=== PATIENT | male | born 1965 | race American Indian/Alaskan Native ===

== ENCOUNTER 2017-02-05 01:51 | Emergency (ER) | payer MEDICARE, MEDICAID ==
[2017-02-05 01:52] VITALS: BMI 39.5
[2017-02-05 02:46] VITALS: O2SAT 98
--- NOTE | 2017-02-05 03:57 | C.PDOC ---
History Of Present Illness 51 year old male who presents to the ER with a complaint of feeling SOB. On examination patient denies being short of breath and states he has suicidal ideation. Denies physical complaints at this time. Chief Complaint (Nursing): Shortness Of Breath History Per: Patient History/Exam Limitations: no limitations Onset/Duration Of Symptoms: Hrs Current Symptoms Are (Timing): Still Present Current Respiratory Medications: None Associated Symptoms: denies: Fever, Chills, Chest Pain Recent travel outside of the [place]: No Past Medical History Reviewed: Historical Data, Nursing Documentation, Vital Signs Vital Signs: Last Vital Signs Temp 98.6 F 02/05/17 02:22 Pulse 92 H 02/05/17 03:00 Resp 20 02/05/17 03:00 BP 154/86 H 02/05/17 03:00 Pulse Ox 98 02/05/17 04:31 - Medical History PMH: Arthritis, Back Problems, Bronchitis, CHF, COPD, Fractures, Gastritis, HTN - [facility] Procedures ENDOSC POLYPECTOMY OF LG INTEST (11/09/13) INJECT/INFUSE NEC (06/22/14) TETANUS TOXOID ADMINIST (11/16/13) Family History: States: Unknown Family Hx, Hypertension - Social History Hx Tobacco Use: Yes Hx Alcohol Use: Yes Hx Substance Use: Yes (cocaine, marijuana) - Immunization History Hx Tetanus Toxoid Vaccination: No Hx Influenza Vaccination: No Hx Pneumococcal Vaccination: No Review Of Systems Constitutional: Negative for: Fever, Chills Cardiovascular: Negative for: Chest Pain, Palpitations Respiratory: Negative for: Cough, Shortness of Breath Gastrointestinal: Negative for: Nausea, Vomiting, Diarrhea Psych: Positive for: Suicidal ideation Physical Exam - Physical Exam Appears: Non-toxic, No Acute Distress Skin: Normal Color, Warm, Dry Head: Atraumatic, Normacephalic Oral Mucosa: Moist Chest: Symmetrical, No Tenderness Cardiovascular: Rhythm Regular, No Murmur Respiratory: Normal Breath Sounds, No Rales, No Rhonchi, No Wheezing Gastrointestinal/Abdominal: Soft, No Tenderness Neurological/Psych: Oriented x3, Normal Speech, Normal Cognition ED Course And Treatment O2 Sat by Pulse Oximetry: 98 (Room air) Pulse Ox Interpretation: Normal Progress Note: On further evaluation patient denies suicidal ideation and is requesting detox. No detox beds available at this time, will discharge home with list of other detox sites in the area. Disposition Counseled Patient/Family Regarding: Diagnosis - Disposition Referrals: [facility] [Outside] Disposition: HOME/ ROUTINE Disposition Time: 04:40 Condition: STABLE Instructions: Alcohol Use Disorder (ED) Forms: [facility] (Bur[place]ian) - POA Present On Arrival: None - Clinical Impression Clinical Impression: Alcohol abuse, Disorder due to alcohol abuse - Scribe Statement The provider has reviewed the documentation as recorded by the Scribe Carl Ruiz All medical record entries made by the Scribe were at my direction and personally dictated by me. I have reviewed the chart and agree that the record accurately reflects my personal performance of the history, physical exam, medical decision making, and the department course for this patient. I have also personally directed, reviewed, and agree with the discharge instructions and disposition.
[2017-02-05 04:37] VITALS: RESP 20
[2017-02-05 04:41] VITALS: BP 154/85; PULSE 90; TEMP 98.4
== END 2017-02-05 04:41 | disposition home or self-care (01) ==
LOC: C.ER 01:51
DX: F10.10 Alcohol abuse, uncomplicated (principal); Y90.9 Presence of alcohol in blood, level not specified

== ENCOUNTER 2017-03-18 11:01 | Day surgery (SDC) | payer OTHER ==
[2017-03-13 08:33] VITALS: BMI 39.5
[2017-03-18] MEDS ORDERED: Midazolam 2 MG/2 ML VIAL ONE (12:30)
[2017-03-18] MEDS ORDERED: Iodixanol 320 MG/ML 100 ML BOTTLE IV ONE ×2 (12:31→13:04)
[2017-03-18] MEDS ORDERED: Sodium Bicarbonate 8.4% 100 MEQ in Sodium Chloride 0.45% 900 ML IV SCH (14:00)
[2017-03-20 11:35] VITALS: RESP 16; O2SAT 98
--- NOTE | 2017-03-21 12:37 | CATH ---
APPROVED REPORT Procedure(s) performed: Left Heart Catheterization Selective Right and Left Coronary Angiography AORTAGRAM RIGHT ILEOFEMORAL ANGIOGRAM HISTORY The patient is a 51 year-old male with a history of : previous CHF, tobacco history() : The patient is a current smoker, hypertension, dyslipidemia. INDICATION The indication(s) include : palpitations, murmur, chest pain, dizziness and vertigo, abnormal ECG, jugular vein distension, peripheral edema, dyspnea. CASE TECHNIQUE The patient was brought electively to the Cardiac Catheterization Laboratory in a fasting state and was prepped and draped in a sterile manner. The right femoral groin was infiltrated with 2% Lidocaine subcutaneous anesthesia. A sheath was inserted into the right femoral artery without difficulty. Coronary angiography was performed using coronary diagnostic catheters. The left coronary system was accessed and visualized with a Diagnostic catheter. The right coronary system was accessed and visualized with a Diagnostic catheter. The left ventricle was accessed and visualized with a Diagnostic catheter. Left ventricular/Aortic Valve gradient assessed on pullback. Left ventriculogram was performed in [place] projection. Pre-demployment femoral angiogram was performed . Closure device was deployed with a 6 Fr Angioseal without any complications. The patient tolerated the procedure well and there were no complications associated with the procedure. Vessel Analysis The patient's coronary anatomy is right dominant. The left main coronary artery is a large size vessel without significant stenosis. The left main bifurcates to the left anterior descending and circumflex. The left anterior descending artery is a large size vessel without significant stenosis. The first diagonal branch is a medium size vessel without significant stenosis. The second diagonal branch is a medium size vessel without significant stenosis. 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 The circumflex artery is a large size vessel without significant stenosis. The first obtuse marginal branch is a large size vessel without significant stenosis. The second obtuse marginal branch is a small size vessel without stenosis. The right coronary artery is a large size vessel without significant stenosis. The right posterior descending artery is a medium size vessel without significant stenosis. The right posterolateral branch is a large size vessel with stenosis. There is a 50% stenosis in the mid segment. Left Ventricle The left ventricle is MILDLY ENLARGED in size with SEVERELY DECREASED contractility. The left ventricular ejection fraction is estimated to be 30%. The left ventricular end diastolic pressure is 25 mmHg. There was no gradient across the aortic valve upon pullback. Aorta AORTAGRAM WAS PERFORMED TO IDENTIFY THE LEFT MAIN OSTIUM. PLEASE SEE ABOVE THE AORTIC ROOT IS BORDERLINE ENLARGED Conclusion MODERATE SINGLE VESSEL CAD OF MID LPDA SEVERELY DECREASED EF ANNOMALOUS LEFT MAIN OFF THE RCC Recommendations Smoking Cessation Aggressive Medical Therapy Medical Therapy AICD
== END 2017-03-18 14:51 | disposition short-term general hospital (02) ==
LOC: C.CATHLAB 11:01
PROVIDERS: ATTEND Internal Medicine Cardiovascular Disease
DX: I25.10 Atherosclerotic heart disease of native coronary artery without angina pectoris (principal); I10 Essential (primary) hypertension; E78.5 Hyperlipidemia, unspecified; F17.210 Nicotine dependence, cigarettes, uncomplicated
CPT/HCPCS: 93458; 94770; C1758; C1760; C1769; C1887; J1644; J2250; J3010; J7030; Q9967

== ENCOUNTER 2017-10-18 23:59 | Inpatient (IN) | payer MEDICARE, MEDICAID ==
[2017-10-19 00:01] VITALS: BMI 24.4
--- NOTE | 2017-10-19 00:57 | C.PDOC ---
History Of Present Illness Pt is here requesting detox from alcohol. Time Seen by Provider: 10/19/17 00:42 Chief Complaint (Nursing): Substance Abuse History Per: Patient Onset/Duration Of Symptoms: Days Current Symptoms Are (Timing): Still Present Suicide/Self Injury Attempted (Context): None Modifying Factor(s): Alcohol, Crack Severity: Moderate Associated Symptoms: denies: Suicidal Thoughts, Suicidal Plan Additional History Per: Prior Records Past Medical History Reviewed: Historical Data, Nursing Documentation, Vital Signs Vital Signs: Last Vital Signs Temp 97.7 F 10/19/17 00:18 Pulse 88 10/19/17 06:36 Resp 19 10/19/17 06:36 BP 156/116 H 10/19/17 06:36 Pulse Ox 98 10/19/17 06:36 - Medical History PMH: Arthritis, Back Problems, Bronchitis (chronic), CAD, CHF, COPD, Fractures, Gastritis, HTN, Hypercholesterolemia, Peripheral Edema, Pneumonia, Chronic Kidney Disease Other PMH: Alcohol abuse - [facility] Procedures ENDOSC POLYPECTOMY OF LG INTEST (11/09/13) EXCISION OF TOE NAIL, EXTERNAL APPROACH (05/08/17) INJECT/INFUSE NEC (06/22/14) INTRODUCTION OF ANTI-INFLAM INTO RESP TRACT, VIA OPENING (06/07/17) INTRODUCTION OF SERUM/TOX/VACCINE INTO MUSCLE, PERC APPROACH (03/13/17) MEASURE OF CARDIAC SAMPL & PRESSURE, L HEART, PERC APPROACH (03/13/17) PLAIN RADIOGRAPHY OF LEFT HEART USING OTHER CONTRAST (03/13/17) PLAIN RADIOGRAPHY OF THORACIC AORTA (03/13/17) TETANUS TOXOID ADMINIST (11/16/13) Family History: States: Unknown Family Hx, Hypertension - Social History Hx Tobacco Use: Yes Hx Alcohol Use: Yes Hx Substance Use: Yes (Smokes crack cocaine) - Immunization History Hx Tetanus Toxoid Vaccination: No Hx Influenza Vaccination: No Hx Pneumococcal Vaccination: No Review Of Systems Except As Marked, All Systems Reviewed And Found Negative. Constitutional: Negative for: Fever Cardiovascular: Negative for: Chest Pain Respiratory: Negative for: Shortness of Breath Gastrointestinal: Negative for: Abdominal Pain Neurological: Negative for: Weakness, Numbness, Seizures Physical Exam - Physical Exam Appears: Non-toxic, No Acute Distress Skin: Normal Color, Warm, Dry Head: Atraumatic, Normacephalic Eye(s): bilateral: PERRL, EOMI Neck: Normal ROM, Supple Cardiovascular: Rhythm Regular Respiratory: Normal Breath Sounds, No Accessory Muscle Use Gastrointestinal/Abdominal: Soft, No Tenderness Extremity: Normal ROM, No Pedal Edema Neurological/Psych: Oriented x3, Normal Motor, Normal Sensation ED Course And Treatment - Laboratory Results Result Diagrams: 10/19/17 01:53 10/19/17 01:53 O2 Sat by Pulse Oximetry: 97 Pulse Ox Interpretation: Normal Disposition - Disposition Disposition Time: 07:03 Condition: STABLE - Clinical Impression Clinical Impression: Alcohol abuse, Cocaine abuse Physician Patient Turnover Patient Signed Over To: Lety Lazo Handoff Comments: 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
[2017-10-19 01:57] LABS: BASO # 0.1 K/uL (0.0-0.2); BASO % 1.1 % (0.0-2.0); EOS # 0.2 K/uL (0.0-0.7); EOS % 2.5 % (0.0-4.0); HEMOGLOBIN 15.4 g/dL (12.0-18.0); LYMPH # 1.4 K/uL (1.0-4.3); LYMPH % 18.1 % (20.0-40.0); MEAN CELL VOLUME 89.3 fL (80.0-94.0); MEAN CORPUSCULAR HEMOGLOBIN 30.8 pg (27.0-31.0); MEAN CORPUSCULAR HGB CONC 34.5 g/dL (33.0-37.0); MEAN PLATELET VOLUME 8.8 fL (7.2-11.7); MONO # 0.7 K/uL (0.0-0.8); MONO % 9.2 % (0.0-10.0); NEUT # 5.2 K/uL (1.8-7.0); NEUT % 69.1 % (50.0-75.0); NRBC % 0.1 % (0.0-2.0); RED CELL DISTRIBUTION WIDTH 13.4 % (11.5-14.5); WHITE BLOOD COUNT 7.5 K/uL (4.8-10.8)
[2017-10-19 02:01] LABS: SQUAMOUS EPITHIAL < 1 /hpf (0-5); URINE BILIRUBIN NEGATIVE (NEGATIVE); URINE CLARITY Clear (Clear); URINE COLOR Yellow (YELLOW); URINE GLUCOSE (UA) NORMAL (Normal); URINE LEUKOCYTE ESTERASE NEG Leu/uL (Negative); URINE PROTEIN 2+ mg/dL (NEGATIVE); URINE UROBILINOGEN NORMAL mg/dL (0.2-1.0)
[2017-10-19 02:03] LABS: URINE BLOOD NEGATIVE (NEGATIVE)
[2017-10-19 02:26] LABS: ALB/GLOB RATIO 1.2 (1.0-2.1); ALBUMIN 3.9 g/dL (3.5-5.0); BARBITURATES, UR NEGATIVE (NEGATIVE); BENZODIAZEPINES, UR NEGATIVE (NEGATIVE); CALCIUM 9.1 mg/dl (8.6-10.4); OPIATES, UR NEGATIVE (NEGATIVE); PHENCYCLIDINE, UR NEGATIVE (NEGATIVE)
--- NOTE | 2017-10-19 09:32 | PCM.BM ---
<Shari Bernal - Last Filed: 10/19/17 09:31> Treatment Plan Problems - Problems identified on initial assessmt potential for alcohol withdrawal symptoms Date Initiated: 10/19/17 Assessment reference: NA Status: Active Treatment assets and liabiliti Patient Assests: adapts well, cooperative, motivated, ADL independent, negotiates basic needs Patient Liabilities: live alone, substance abuse, medical problems - Milieu Protocol Maintain good personal hygiene: every shift Encourage regular showers, every shift Remind patient to perform daily oral care, every shift Assist patient to perform ADL's Conduct patient checks and document Observation sheet: Q15 minutes Maintain personal safety: daily Educate patient to report safety concerns to staff, daily Monitor environment for contraband/sharps Medication safety: Monitor for expected outcome, potential side effects: daily, Assess barriers to learning: daily, Assess readiness for medication education: daily <Alex Gibbs - Last Filed: 10/19/17 22:29> - Diagnosis (1) Alcohol use disorder, severe, dependence Status: Acute Interventions: 10/19/17 22:29 * Assess 7x/week regarding severity of withdrawal * Educate regarding risks, benefits, side effects and alternatives of medications * Use Motivational Interviewing for abstinence * Use CBT for relapse prevention * Medication management for withdrawal symptoms * Encourage medication assisted treatment *
[2017-10-19] MEDS ORDERED: Albuterol-Ipratrop 3 mg / 0.5 (3 ml) UD INH PRN ×2 (12:11→19:51)
--- NOTE | 2017-10-19 12:27 | PCM.PSYCH ---
Initial Psychiatric Evaluation - Initial Psychiatric Evaluation Type of Admission: Voluntary Legal Status: Capacity Chief Complaint (in patient's own words): "Alcohol" History of Present Illness and Precipitating Events: The pt is seen, chart reviewed and case discussed. This is a 52 yo AAM single with no children, disabled bc of left leg injury and cardiac problems. He is here for alcohol detox, drinking at least 6 of the 24 oz beers, no liquor. He also uses cocaine "a lot" by snorting, ie $100+ per day Denies all other drugs Alcohol started when he was 14 y/o, cocaine when he was 26 y/o No psych sxs Past psych hx: Denies Family psych hx: Denies Medical hx: HTN, CHF, hx of bronchitis Current Medications: Active Medications Generic Name Dose Route Start Last Admin Trade Name Freq PRN Reason Stop Dose Admin Albuterol/Ipratropium 3 ml 10/19/17 12:11 Duoneb 3 Mg/0.5 Mg (3 Ml) Ud INH RQ6 PRN Shortness of Breath Fluticasone/Salmeterol 1 puff 10/19/17 20:00 Advair Diskus 500/50 INH RQ12 QUE Past Psychiatric History - Past Psychiatric History Previous Treatment History: None Pertinent Medical Hx (Current Medical&Sleep Prob, Allergies): Allergies Allergy/AdvReac Type Severity Reaction Status Date / Time No Known Allergies Allergy Verified 10/09/17 07:44 Budesonide/Formoterol Fumarate [Symbicort 160-4.5 Mcg Inhaler] 10.2 gm IH DAILY #1 hfa.aer.ad 08/16/17 Albuterol HFA [Ventolin HFA 90 mcg/actuation (8 g)] 2 puff IH [id number] #1 puff Isosorbide Mononitrate ER [Imdur ER] 30 mg PO DAILY 30 Days #30 tab 09/25/17 Losartan [Cozaar] 50 mg PO DAILY 30 Days #30 tab 09/25/17 amLODIPine [Norvasc] 5 mg PO Q12 #60 tab 09/25/17 Albuterol Sulfate [Proair Hfa] 0.09 mg IH Q6 PRN #1 inh 10/06/17 Furosemide [Lasix] 40 mg PO DAILY 10/19/17 Review of Systems - Neurological Neurological: Tremor, UNREMARKABLE - Psychiatric Psychiatric: Abnormal Sleep Pattern, Anxiety. absent: Hallucinations, Homicidal Ideation, Paranoia, Suicidal Ideation Mental Status Examination - Personal Presentation Personal Presentation: Looks older than stated age - Affect Affect: Constricted - Motor Activity Motor Activity: Calm - Reliability in Providing Information Reliability in Providing Information: Fair - Speech Speech: Organized - Mood Mood: Anxious - Formal Thought Process Formal Thought Process: No Impairment - Cognitive Functions Orientation: Person, Place, Situation, Time Sensorium: Alert Attention/Concentration: Easily distracted Abstract Thinking: [place] Estimate of Intelligence: Below average Judgement: Intact, as evidence by: Insight regarding need for hospitalization Memory: Recent intact, as evidence by: Ability to recall events of the day, Remote intact, as evidenced by: Abilit to recall sig. life events - Risk Risk: Withdrawal, Diminished functioning - Strength & Assets Inventory Strength & Assets Inventory: Cooperative - Limitations Limitations: Living alone DSM 5 DX - DSM 5 DSM 5 Diagnosis: Alcohol withdrawal Alcohol use d/o - severe - Recommended/Plan of Treatment Treatment Recommendations and Plan of Treatment: Librium detox As needed medications Gabapentin for augmentation if needed All risks, benefits and alternatives of medications, including no medications, discussed and the patient understood and agreed. Attend groups and activities Supportive therapy and psychoeducation NV for abstinence CBT for relapse prevention Encourage MAT Refer to rehab or IOP Attend self-help groups as well NV for smoking cessation and patch if needed Medicine consult for BP control 34 min Projected ELOS: 5-6 days Prognosis: good w treatment
--- NOTE | 2017-10-19 13:21 | CP.PCM.CON ---
<Tana Hastings E - Last Filed: 10/19/17 19:15> History of Present Illness - History of Present Illness History of Present Illness: CC: Uncontrolled HTN ( Consult) HPI: Patient is a 52 year old male with past medical history of reduced EF CHF, HTN, COPD, alcohol and cocaine abuse, who presents to the ED requesting for alcohol and cocaine detox. Upon admission to detox, medicine consultation was placed for uncontrolled hypertension. Patient was seen and examined at bedside as he was resting comfortably in bed in no acute distress. Patient denied taking his blood pressure medication today. Patient denies chest pain, palpitation, SOB, headache, blurry vision, numbness and tingling. EKG and Troponin were ordered after encounter, troponin was elevated and Dr. Oliveira was made aware by hospitalist attending. PMD: [facility] PMH: reduced EF CHF, HTN, COPD, alcohol and cocaine abuse allergies: NKDA meds: see med list PSH: left foot surgery about 5 years ago Fam: father from DM2, mother from breast cancer SOC: smokes 1/2 pack/day, sometimes less, Dr. Oliveira made aware Review of Systems - Constitutional Constitutional: absent: Chills, Fever, Headache - EENT Eyes: absent: Blurred Vision, Change in Vision - Cardiovascular Cardiovascular: absent: Chest Pain, Chest Pain at Rest, Chest Pain with Activity , Dyspnea, Lightheadedness, Palpitations - Respiratory Respiratory: Cough. absent: Dyspnea, Dyspnea on Exertion, Wheezing - Gastrointestinal Gastrointestinal: absent: Abdominal Pain, Nausea, Vomiting - Endocrine Endocrine: absent: Palpitations Past Patient History - Infectious Disease Hx of Infectious Diseases: None - Past Medical History & Family History Past Medical History?: Yes - Past Social History Smoking Status: Light Smoker < 10 Cigarettes Daily - CARDIAC Hx Cardiac Disorders: No Hx Hypertension: Yes - PULMONARY Hx Tuberculosis: No - NEUROLOGICAL HX Cerebrovascular Accident: No Hx Seizures: No - HEENT Hx HEENT Problems: No - RENAL Hx Chronic Kidney Disease: Yes - ENDOCRINE/METABOLIC Hx Hyperthyroidism: No Hx Hypothyroidism: No - HEMATOLOGICAL/ONCOLOGICAL Hx Cancer: No Hx Human Immunodeficiency Virus (HIV): No - INTEGUMENTARY Hx Dermatological Problems: No - MUSCULOSKELETAL/RHEUMATOLOGICAL Hx Arthritis: Yes Hx Falls: No Hx Fractures: Yes - GASTROINTESTINAL Hx Gastritis: Yes - GENITOURINARY/GYNECOLOGICAL Hx Sexually Transmitted Disorders: No - PSYCHIATRIC Hx Substance Use: Yes - SURGICAL HISTORY Hx Appendectomy: No Hx Carotid Endarterectomy: No Hx Cholecystectomy: No Hx Coronary Artery Bypass Graft: No Hx Coronary Stent: No Hx Tonsillectomy: No - ANESTHESIA Hx Anesthesia: Yes Hx Anesthesia Reactions: No Hx Malignant Hyperthermia: No Meds Allergies/Adverse Reactions: Allergies Allergy/AdvReac Type Severity Reaction Status Date / Time No Known Allergies Allergy Verified 10/09/17 07:44 - Medications Medications: Current Medications Albuterol/Ipratropium (Duoneb 3 Mg/0.5 Mg (3 Ml) Ud) 3 ml INH RQ6 PRN PRN Reason: Shortness of Breath Amlodipine Besylate (Norvasc) 5 mg PO DAILY QUE Aspirin (Aspirin Chewable) 81 mg PO DAILY [facility] Furosemide (Lasix) 40 mg PO DAILY [facility] Isosorbide Mononitrate (Imdur Er) 30 mg PO DAILY [facility] Losartan Potassium (Cozaar) 50 mg PO DAILY [facility] Rosuvastatin Calcium (Crestor) 5 mg PO HS QUE Fluticasone/Salmeterol (Advair Diskus 500/50) 1 puff INH RQ12 QUE Physical Exam - Constitutional Appears: No Acute Distress - Head Exam Head Exam: ATRAUMATIC, NORMAL INSPECTION - Eye Exam Eye Exam: EOMI, Normal appearance - ENT Exam ENT Exam: Mucous Membranes Moist - Respiratory Exam Respiratory Exam: Clear to Auscultation Bilateral, NORMAL BREATHING PATTERN. absent: Prolonged Expiratory Phase, Rhonchi, Wheezes, Respiratory Distress Additional comments: Mild congestion - Cardiovascular Exam Cardiovascular Exam: REGULAR RHYTHM, +S1, +S2 - GI/Abdominal Exam GI & Abdominal Exam: Normal Bowel Sounds, Soft. absent: Distended, Firm, Guarding, Tenderness - Extremities Exam Extremities exam: Positive for: normal inspection. Negative for: calf tenderness, pedal edema - Neurological Exam Neurological exam: Alert, Oriented x3 - Psychiatric Exam Psychiatric exam: Normal Affect - Skin Skin Exam: Normal Color Results - Vital Signs Recent Vital Signs: Last Vital Signs Temp 97.6 F 10/19/17 09:15 Pulse 88 10/19/17 11:00 Resp 18 10/19/17 09:15 BP 147/91 H 10/19/17 11:00 Pulse Ox 96 10/19/17 09:15 - Labs Result Diagrams: 10/19/17 01:53 04/28/18 01:53 Labs: Laboratory Results - last 24 hr 10/19/17 10/19/17 10/19/17 01:53 01:53 01:53 WBC 7.5 RBC 5.00 Hgb 15.4 Hct 44.6 MCV 89.3 MCH 30.8 MCHC 34.5 RDW 13.4 Plt Count 220 MPV 8.8 Neut % (Auto) 69.1 Lymph % (Auto) 18.1 L [place] % (Auto) 9.2 Eos % (Auto) 2.5 Baso % (Auto) 1.1 Neut # (Auto) 5.2 Lymph # (Auto) 1.4 [place] # (Auto) 0.7 Eos # (Auto) 0.2 Baso # (Auto) 0.1 Sodium 141 Potassium 3.8 Chloride 102 Carbon Dioxide 24 Anion Gap 19 BUN 19 Creatinine 1.6 H Est GFR ( Amer) 55 Est GFR (Non-Af Amer) 46 Random Glucose 89 Calcium 9.1 Total Bilirubin 1.1 AST 24 ALT 17 L D Alkaline Phosphatase 83 Troponin I Total Protein 7.2 Albumin 3.9 Globulin 3.3 Albumin/Globulin Ratio 1.2 Urine Color Yellow Urine Clarity Clear Urine pH 5.0 Ur Specific [place] 1.012 Urine Protein 2+ H Urine Glucose (UA) Normal Urine Ketones Negative Urine Blood Negative Urine Nitrate Negative Urine Bilirubin Negative Urine Urobilinogen Normal Ur Leukocyte Esterase Neg Urine WBC (Auto) 2 Urine RBC (Auto) < 1 Ur Squamous Epith Cells < 1 Urine Opiates Screen Urine Methadone Screen Ur Barbiturates Screen Ur Phencyclidine Scrn Ur Amphetamines Screen U Benzodiazepines Scrn U Oth Cocaine Metabols U Cannabinoids Screen Alcohol, Quantitative 63 H 10/19/17 10/19/17 01:53 12:10 WBC RBC Hgb Hct MCV MCH MCHC RDW Plt Count MPV Neut % (Auto) Lymph % (Auto) [place] % (Auto) Eos % (Auto) Baso % (Auto) Neut # (Auto) Lymph # (Auto) [place] # (Auto) Eos # (Auto) Baso # (Auto) Sodium Potassium Chloride Carbon Dioxide Anion Gap BUN Creatinine Est GFR ( Amer) Est GFR (Non-Af Amer) Random Glucose Calcium Total Bilirubin AST ALT Alkaline Phosphatase Troponin I 0.3280 H* Total Protein Albumin Globulin Albumin/Globulin Ratio Urine Color Urine Clarity Urine pH Ur Specific [place] Urine Protein Urine Glucose (UA) Urine Ketones Urine Blood Urine Nitrate Urine Bilirubin Urine Urobilinogen Ur Leukocyte Esterase Urine WBC (Auto) Urine RBC (Auto) Ur Squamous Epith Cells Urine Opiates Screen Negative Urine Methadone Screen Negative Ur Barbiturates Screen Negative Ur Phencyclidine Scrn Negative Ur Amphetamines Screen Negative U Benzodiazepines Scrn Negative U Oth Cocaine Metabols Positive H U Cannabinoids Screen Negative Alcohol, Quantitative Assessment & Plan (1) Uncontrolled hypertension Assessment and Plan: Possibly secondary to substance withdrawal Medication: * Cozaar 50mg PO daily * Coreg 25mg PO BID Status: Acute (2) Non-ischemic cardiomyopathy Assessment and Plan: Chest X-ray (10/19/17): No increased markings seen in the upper lung zones; rule out developing upper lobe infiltrates versus mild cephalization.Cardiomegaly. Echo ( 07/31/17): The left ventricle is mildly dilated. The systolic function severely impaired. EF< 20%. For complete report, please refer to the EMR Patient does have a life vest, that he does not aware Patient is aware that he needs an AICD BNP: 4190 Medication: * Imdur 30mg PO daily * Cozaar 50mg PO daily Status: Acute (3) Elevated troponin Assessment and Plan: Hand Etcher, Dr. Brandon--> Help appreciated * Management as per recommendation No acute symptoms EKG: NSR 83 bpm, left axis deviation, LVH, early repolarization V2-V5, T wave inversions II, III, aVF, V6 - EKG unchanged from pior done on 10/06/17. Patient without chest pain Troponin down trendin.3280---->0.2830, f/u troponin Cardiac Catherization 02/2017: Moderate single vessel CAD of mid LDA Medication: * Coreg 25mg PO BID * ASA 81mg PO daily * Crestor 5mg PO HS Status: Acute (4) Substance abuse Assessment and Plan: Psychiatrist, Dr. Gibbs on board * Management as per recommendation Status: Acute (5) History of COPD Assessment and Plan: Advair 1 puff q12h Duoneb RQ6H Status: Acute (6) Prophylactic measure Assessment and Plan: GI: Not indication DVT: Not indicated, Ambulating, SCDS All plans and management discussed with Dr. Guevara Status: Acute <Rachael Guevara - Last Filed: 10/20/17 10:59> Meds - Medications Medications: Current Medications Albuterol/Ipratropium (Duoneb 3 Mg/0.5 Mg (3 Ml) Ud) 3 ml INH RQ6 PRN PRN Reason: Shortness of Breath Aspirin (Aspirin Chewable) 81 mg PO DAILY [facility] Last Admin: 10/20/17 09:18 Dose: 81 mg Carvedilol (Coreg) 25 mg PO BID [facility] Last Admin: 10/20/17 09:17 Dose: 25 mg Chlordiazepoxide (Librium) 25 mg PO Q6H QUE PRN Reason: Taper Stop: 10/23/17 17:59 Last Admin: 10/20/17 05:16 Dose: 25 mg Chlordiazepoxide (Librium) 25 mg PO Q4H PRN PRN Reason: Alcohol Withdrawal Folic Acid (Folic Acid) 1 mg PO DAILY [facility] Last Admin: 10/20/17 09:17 Dose: 1 mg Furosemide (Lasix) 40 mg PO DAILY [facility] Last Admin: 10/20/17 09:17 Dose: 40 mg Isosorbide Mononitrate (Imdur Er) 30 mg PO DAILY [facility] Last Admin: 10/20/17 09:18 Dose: 30 mg Losartan Potassium (Cozaar) 50 mg PO DAILY [facility] Last Admin: 10/20/17 09:17 Dose: 50 mg Multivitamins (Hexavitamin) 1 tab PO DAILY [facility] Last Admin: 10/20/17 09:18 Dose: 1 tab Rosuvastatin Calcium (Crestor) 5 mg PO HS [facility] Last Admin: 10/19/17 21:38 Dose: 5 mg Fluticasone/Salmeterol (Advair Diskus 500/50) 1 puff INH RQ12 [facility] Last Admin: 10/20/17 09:34 Dose: 1 puff Thiamine HCl (Vitamin B1 Tab) 100 mg PO DAILY [facility] Last Admin: 10/20/17 09:17 Dose: 100 mg Trazodone HCl (Desyrel) 50 mg PO HS [facility] Last Admin: 10/19/17 21:38 Dose: 50 mg Results - Vital Signs Recent Vital Signs: Last Vital Signs Temp 97.4 F L 10/20/17 07:05 Pulse 70 10/20/17 08:00 Resp 20 10/20/17 07:05 BP 153/93 H 10/20/17 09:17 Pulse Ox 94 L 04/29/18 07:05 - Labs Result Diagrams: 10/20/17 07:44 10/20/17 07:44 Labs: Laboratory Results - last 24 hr 10/19/17 10/19/17 10/19/17 12:10 13:31 18:20 WBC RBC Hgb Hct MCV MCH MCHC RDW Plt Count MPV Neut % (Auto) Lymph % (Auto) [place] % (Auto) Eos % (Auto) Baso % (Auto) Neut # (Auto) Lymph # (Auto) [place] # (Auto) Eos # (Auto) Baso # (Auto) Sodium Potassium Chloride Carbon Dioxide Anion Gap BUN Creatinine Est GFR ( Amer) Est GFR (Non-Af Amer) Random Glucose Calcium Phosphorus Magnesium 1.9 Total Bilirubin AST ALT Alkaline Phosphatase Total Creatine Kinase 129 CK-MB (Mass) 1.32 Troponin I 0.3280 H* 0.2830 H* NT-Pro-B Natriuret Pep 4910 H Total Protein Albumin Globulin Albumin/Globulin Ratio 10/20/17 10/20/17 10/20/17 00:52 07:44 07:44 WBC 5.2 RBC 4.82 Hgb 15.0 Hct 43.6 MCV 90.5 MCH 31.2 H MCHC 34.5 RDW 13.6 Plt Count 199 MPV 8.8 Neut % (Auto) 59.1 Lymph % (Auto) 23.0 [place] % (Auto) 11.3 H Eos % (Auto) 6.1 H Baso % (Auto) 0.5 Neut # (Auto) 3.1 Lymph # (Auto) 1.2 [place] # (Auto) 0.6 Eos # (Auto) 0.3 Baso # (Auto) 0.0 Sodium 139 Potassium 3.7 Chloride 104 Carbon Dioxide 26 Anion Gap 13 BUN 23 H Creatinine 1.9 H Est GFR ( Amer) 45 Est GFR (Non-Af Amer) 38 Random Glucose 90 Calcium 9.2 Phosphorus 3.9 Magnesium 2.0 Total Bilirubin 0.8 AST 20 ALT 13 L D Alkaline Phosphatase 75 Total Creatine Kinase 100 CK-MB (Mass) 1.02 Troponin I 0.2760 H* NT-Pro-B Natriuret Pep Total Protein 6.4 Albumin 3.3 L Globulin 3.1 Albumin/Globulin Ratio 1.1 Attending/Attestation - Attestation I have personally seen and examined this patient.: Yes I have fully participated in the care of the patient.: Yes I have reviewed all pertinent clinical information: Yes Notes (Text): Seen and examined by me at 7T patient denies chest pain,no sob,no nausea ,no vomting.Patient took cocaine last night.Just before he came here. He knows that he has severe heart disease and need AICD. Called to see for uncontrolled hypertension and abnormal EKG. Patient was noncompliance with follow up and not taking his meds.Smokes,drink alcohol and use cocaine. 1.Uncontrolled BP and Elevated troponin No chest pain,EKG with T wave inversion. No new changes Patient's troponin is likely due to high BP. Patient had Cardiac cath in february 2017 has NSDCM. last echo 07/31/2017 EF less than 20%-patient was noncompliance with life vest.Aware of the risk of noncompliance. continue Cozaar 50 mg daily, Imdur 30mg daily,asprin 81 mg, crestor 5mg d/w Dr Oliveira. Coreg 25mg BID. 2.Non Ischemic cardiography-chronic 3.Systolic heart failure-chonic 4.Substance abuse 5.COPD-Chronic ,stable d/w resident I agree with the documentation of the resident's assessment and the plan Observe at tele. If Troponin trending down ,BP improves and no chest pain we will transfer back to detox tomorrow
[2017-10-19] MEDS: Multiple Vitamins Tab PO SCH (13:51)
[2017-10-19 14:11] VITALS: RESP 20
--- NOTE | 2017-10-19 15:00 | RAD ---
PROCEDURE: CHEST RADIOGRAPH, 1 VIEW HISTORY: ACS COMPARISON: None available. FINDINGS: LUNGS: The increased markings seen in both upper lung zones; rule out developing upper lobe infiltrates versus mild cephalization. Out mild developing mild cephalization. PLEURA: No pneumothorax or pleural fluid seen. CARDIOVASCULAR: Cardiomegaly. The the the OSSEOUS STRUCTURES: No significant abnormalities. VISUALIZED UPPER ABDOMEN: Normal. OTHER FINDINGS: None. IMPRESSION: No increased markings seen in the upper lung zones; rule out developing upper lobe infiltrates versus mild cephalization. Cardiomegaly.
[2017-10-19 18:55] LABS: CK-MB 1.32 ng/mL (0.0-3.38); TROPONIN I 0.283 ng/mL (0.00-0.120)
[2017-10-19] MEDS: Fluticasone-Salmeterol 500-50mcg Diskus INH SCH (20:58)
[2017-10-20 02:02] LABS: CK-MB 1.02 ng/mL (0.0-3.38); TROPONIN I 0.276 ng/mL (0.00-0.120)
[2017-10-20 07:55] LABS: BASO % 0.5 % (0.0-2.0); EOS # 0.3 K/uL (0.0-0.7); EOS % 6.1 % (0.0-4.0); LYMPH # 1.2 K/uL (1.0-4.3); MEAN CELL VOLUME 90.5 fL (80.0-94.0); MEAN CORPUSCULAR HEMOGLOBIN 31.2 pg (27.0-31.0); MEAN CORPUSCULAR HGB CONC 34.5 g/dL (33.0-37.0); MEAN PLATELET VOLUME 8.8 fL (7.2-11.7); MONO # 0.6 K/uL (0.0-0.8); MONO % 11.3 % (0.0-10.0); NEUT # 3.1 K/uL (1.8-7.0); NEUT % 59.1 % (50.0-75.0); NRBC % 0.1 % (0.0-2.0); RBC 4.82 Mil/uL (4.40-5.90); RED CELL DISTRIBUTION WIDTH 13.6 % (11.5-14.5); WHITE BLOOD COUNT 5.2 K/uL (4.8-10.8)
[2017-10-20 08:17] LABS: ALB/GLOB RATIO 1.1 (1.0-2.1); ALBUMIN 3.3 g/dL (3.5-5.0); CALCIUM 9.2 mg/dl (8.6-10.4)
[2017-10-20] MEDS: Multiple Vitamins Tab PO SCH (09:18)
[2017-10-20] MEDS: Fluticasone-Salmeterol 500-50mcg Diskus INH SCH ×2 (09:34→20:14)
--- NOTE | 2017-10-20 17:50 | CP.PCM.PN ---
Subjective - Date & Time of Evaluation Date of Evaluation: 10/20/17 Time of Evaluation: 09:20 - Subjective Subjective: Medicine progress note ( Dr. Guevara's service) Patient was seen and examined at bedside. Patient was resting comfortably in bed in no acute distress. Patient denies chest pain, palpitations, SOB, diaphoresis, headache, blurry vision. Patient is ambulating without difficulty. Objective - Vital Signs/Intake and Output Vital Signs (last 24 hours): Temp Pulse Resp BP Pulse Ox 97.9 F 78 20 115/75 96 10/20/17 15:50 10/20/17 16:03 10/20/17 15:50 10/20/17 15:50 10/20/17 15:50 Intake and Output: 10/20/17 10/20/17 06:59 18:59 Intake Total 600 Balance 600 - Medications Medications: Current Medications Albuterol/Ipratropium (Duoneb 3 Mg/0.5 Mg (3 Ml) Ud) 3 ml INH RQ6 PRN PRN Reason: Shortness of Breath Aspirin (Aspirin Chewable) 81 mg PO DAILY [facility] Last Admin: 10/20/17 09:18 Dose: 81 mg Carvedilol (Coreg) 25 mg PO BID [facility] Last Admin: 10/20/17 09:17 Dose: 25 mg Chlordiazepoxide (Librium) 25 mg PO Q6H QUE PRN Reason: Taper Stop: 10/23/17 17:59 Last Admin: 10/20/17 11:57 Dose: 25 mg Chlordiazepoxide (Librium) 25 mg PO Q4H PRN PRN Reason: Alcohol Withdrawal Folic Acid (Folic Acid) 1 mg PO DAILY [facility] Last Admin: 10/20/17 09:17 Dose: 1 mg Furosemide (Lasix) 40 mg PO DAILY [facility] Last Admin: 10/20/17 09:17 Dose: 40 mg Heparin Sodium (Porcine) (Heparin) 5,000 units SC Q8 [facility] Last Admin: 10/20/17 13:18 Dose: 5,000 units Isosorbide Mononitrate (Imdur Er) 30 mg PO DAILY [facility] Last Admin: 10/20/17 09:18 Dose: 30 mg Losartan Potassium (Cozaar) 50 mg PO DAILY [facility] Last Admin: 10/20/17 09:17 Dose: 50 mg Multivitamins (Hexavitamin) 1 tab PO DAILY [facility] Last Admin: 10/20/17 09:18 Dose: 1 tab Rosuvastatin Calcium (Crestor) 5 mg PO HS [facility] Last Admin: 10/19/17 21:38 Dose: 5 mg Fluticasone/Salmeterol (Advair Diskus 500/50) 1 puff INH RQ12 [facility] Last Admin: 10/20/17 09:34 Dose: 1 puff Thiamine HCl (Vitamin B1 Tab) 100 mg PO DAILY [facility] Last Admin: 10/20/17 09:17 Dose: 100 mg Trazodone HCl (Desyrel) 50 mg PO HS [facility] Last Admin: 10/19/17 21:38 Dose: 50 mg - Labs Labs: 10/20/17 07:44 10/20/17 07:44 - Constitutional Appears: Well, No Acute Distress - Head Exam Head Exam: ATRAUMATIC, NORMAL INSPECTION - Eye Exam Eye Exam: EOMI, Normal appearance - ENT Exam ENT Exam: Mucous Membranes Moist - Respiratory Exam Respiratory Exam: Clear to Ausculation Bilateral, NORMAL BREATHING PATTERN. absent: Prolonged Expiratory Phase, Rhonchi, Wheezes, Respiratory Distress - Cardiovascular Exam Cardiovascular Exam: REGULAR RHYTHM, +S1, +S2 - GI/Abdominal Exam GI & Abdominal Exam: Soft, Normal Bowel Sounds. absent: Distended, Guarding, Rigid, Tenderness - Extremities Exam Extremities Exam: Normal Inspection. absent: Calf Tenderness, Pedal Edema - Neurological Exam Neurological Exam: Alert, Awake, Oriented x3 - Psychiatric Exam Psychiatric exam: Normal Affect - Skin Skin Exam: Normal Color Assessment and Plan (1) Uncontrolled hypertension Assessment & Plan: Stable with current inpatient medications Possibly secondary to substance withdrawal Medication: * Cozaar 50mg PO daily * Coreg 25mg PO BID Status: Acute (2) Elevated troponin Assessment & Plan: Quality Assurance Engineer, Dr. Brandon--> Help appreciated * Management as per recommendation No acute symptoms EKG: NSR 83 bpm, left axis deviation, LVH, early repolarization V2-V5, T wave inversions II, III, aVF, V6 - EKG unchanged from pior done on 10/06/17. Patient without chest pain Troponin down trendin.3280---->0.2830, f/u troponin Cardiac Catherization 02/2017: Moderate single vessel CAD of mid LDA Medication: * Coreg 25mg PO BID * ASA 81mg PO daily * Crestor 5mg PO HS Status: Acute (3) Non-ischemic cardiomyopathy Assessment & Plan: Chest X-ray (10/19/17): No increased markings seen in the upper lung zones; rule out developing upper lobe infiltrates versus mild cephalization.Cardiomegaly. Echo ( 07/31/17): The left ventricle is mildly dilated. The systolic function severely impaired. EF< 20%. For complete report, please refer to the EMR Patient does have a life vest, that he does not aware Patient is aware that he needs an AICD BNP: 4190 Medication: * Imdur 30mg PO daily * Cozaar 50mg PO daily * Lasix 40mg PO daily held ( due to kofi) Status: Acute (4) Substance abuse Assessment & Plan: Psychiatrist, Dr. Gibbs on board * Management as per recommendation Status: Acute (5) History of COPD Assessment & Plan: Advair 1 puff q12h Duoneb RQ6H prn for shortness of breath Status: Acute (6) Prophylactic measure Assessment & Plan: GI: Not indication DVT: Not indicated, Ambulating, SCDS All plans and management discussed with Dr. Guevara Status: Acute
[2017-10-21 06:57] LABS: BASO # 0.1 K/uL (0.0-0.2); BASO % 0.8 % (0.0-2.0); EOS # 0.4 K/uL (0.0-0.7); EOS % 6.5 % (0.0-4.0); HEMOGLOBIN 14.3 g/dL (12.0-18.0); LYMPH # 1.4 K/uL (1.0-4.3); LYMPH % 20.6 % (20.0-40.0); MEAN CELL VOLUME 90.6 fL (80.0-94.0); MEAN CORPUSCULAR HEMOGLOBIN 31.6 pg (27.0-31.0); MEAN CORPUSCULAR HGB CONC 34.9 g/dL (33.0-37.0); MEAN PLATELET VOLUME 9.1 fL (7.2-11.7); MONO # 0.6 K/uL (0.0-0.8); MONO % 9.2 % (0.0-10.0); NEUT # 4.2 K/uL (1.8-7.0); NEUT % 62.9 % (50.0-75.0); RBC 4.52 Mil/uL (4.40-5.90); RED CELL DISTRIBUTION WIDTH 13.7 % (11.5-14.5); WHITE BLOOD COUNT 6.7 K/uL (4.8-10.8)
[2017-10-21 07:11] LABS: ALB/GLOB RATIO 1.1 (1.0-2.1); ALBUMIN 3.2 g/dL (3.5-5.0); CALCIUM 9.1 mg/dl (8.6-10.4)
--- NOTE | 2017-10-21 08:08 | CP.PCM.CON ---
Past Patient History - Infectious Disease Hx of Infectious Diseases: None - Past Medical History & Family History Past Medical History?: Yes - Past Social History Smoking Status: Light Smoker < 10 Cigarettes Daily - CARDIAC Hx Cardiac Disorders: No Hx Hypertension: Yes - PULMONARY Hx Tuberculosis: No - NEUROLOGICAL HX Cerebrovascular Accident: No Hx Seizures: No - HEENT Hx HEENT Problems: No - RENAL Hx Chronic Kidney Disease: Yes - ENDOCRINE/METABOLIC Hx Hyperthyroidism: No Hx Hypothyroidism: No - HEMATOLOGICAL/ONCOLOGICAL Hx Cancer: No Hx Human Immunodeficiency Virus (HIV): No - INTEGUMENTARY Hx Dermatological Problems: No - MUSCULOSKELETAL/RHEUMATOLOGICAL Hx Arthritis: Yes Hx Falls: No Hx Fractures: Yes - GASTROINTESTINAL Hx Gastritis: Yes - GENITOURINARY/GYNECOLOGICAL Hx Sexually Transmitted Disorders: No - PSYCHIATRIC Hx Substance Use: Yes - SURGICAL HISTORY Hx Appendectomy: No Hx Carotid Endarterectomy: No Hx Cholecystectomy: No Hx Coronary Artery Bypass Graft: No Hx Coronary Stent: No Hx Tonsillectomy: No - ANESTHESIA Hx Anesthesia: Yes Hx Anesthesia Reactions: No Hx Malignant Hyperthermia: No Meds Allergies/Adverse Reactions: Allergies Allergy/AdvReac Type Severity Reaction Status Date / Time No Known Allergies Allergy Verified 10/09/17 07:44 - Medications Medications: Current Medications Albuterol/Ipratropium (Duoneb 3 Mg/0.5 Mg (3 Ml) Ud) 3 ml INH RQ6 PRN PRN Reason: Shortness of Breath Aspirin (Aspirin Chewable) 81 mg PO DAILY [facility] Last Admin: 10/20/17 09:18 Dose: 81 mg Carvedilol (Coreg) 25 mg PO BID [facility] Last Admin: 10/20/17 18:08 Dose: 25 mg Chlordiazepoxide (Librium) 25 mg PO Q8H [facility] PRN Reason: Taper Stop: 10/23/17 17:59 Last Admin: 10/21/17 01:29 Dose: 25 mg Chlordiazepoxide (Librium) 25 mg PO Q4H PRN PRN Reason: Alcohol Withdrawal Folic Acid (Folic Acid) 1 mg PO DAILY [facility] Last Admin: 10/20/17 09:17 Dose: 1 mg Furosemide (Lasix) 40 mg PO DAILY [facility] Last Admin: 10/20/17 09:17 Dose: 40 mg Heparin Sodium (Porcine) (Heparin) 5,000 units SC Q8 [facility] Last Admin: 10/21/17 06:01 Dose: 5,000 units Isosorbide Mononitrate (Imdur Er) 30 mg PO DAILY [facility] Last Admin: 10/20/17 09:18 Dose: 30 mg Losartan Potassium (Cozaar) 50 mg PO DAILY [facility] Last Admin: 10/20/17 09:17 Dose: 50 mg Multivitamins (Hexavitamin) 1 tab PO DAILY [facility] Last Admin: 10/20/17 09:18 Dose: 1 tab Rosuvastatin Calcium (Crestor) 5 mg PO HS [facility] Last Admin: 10/20/17 21:06 Dose: 5 mg Fluticasone/Salmeterol (Advair Diskus 500/50) 1 puff INH RQ12 [facility] Last Admin: 10/20/17 20:14 Dose: 1 puff Thiamine HCl (Vitamin B1 Tab) 100 mg PO DAILY [facility] Last Admin: 10/20/17 09:17 Dose: 100 mg Trazodone HCl (Desyrel) 50 mg PO HS [facility] Last Admin: 10/20/17 21:09 Dose: 50 mg Results - Vital Signs Recent Vital Signs: Last Vital Signs Temp 97.4 F L 10/21/17 08:06 Pulse 78 10/21/17 08:06 Resp 20 10/21/17 08:06 BP 139/91 H 10/21/17 08:06 Pulse Ox 97 10/21/17 08:06 - Labs Result Diagrams: 10/21/17 06:45 10/21/17 06:45 Labs: Laboratory Results - last 24 hr 10/20/17 10/21/17 10/21/17 07:44 06:45 06:45 WBC 6.7 RBC 4.52 Hgb 14.3 Hct 40.9 MCV 90.6 MCH 31.6 H MCHC 34.9 RDW 13.7 Plt Count 197 MPV 9.1 Neut % (Auto) 62.9 Lymph % (Auto) 20.6 [place] % (Auto) 9.2 Eos % (Auto) 6.5 H Baso % (Auto) 0.8 Neut # (Auto) 4.2 Lymph # (Auto) 1.4 [place] # (Auto) 0.6 Eos # (Auto) 0.4 Baso # (Auto) 0.1 Sodium 139 140 Potassium 3.7 4.1 Chloride 104 104 Carbon Dioxide 26 26 Anion Gap 13 14 BUN 23 H 28 H Creatinine 1.9 H 2.5 H Est GFR ( Amer) 45 33 Est GFR (Non-Af Amer) 38 27 Random Glucose 90 130 H Calcium 9.2 9.1 Phosphorus 3.9 3.1 Magnesium 2.0 2.0 Total Bilirubin 0.8 0.5 AST 20 14 L D ALT 13 L D 16 L D Alkaline Phosphatase 75 68 Total Protein 6.4 6.1 L Albumin 3.3 L 3.2 L Globulin 3.1 2.8 Albumin/Globulin Ratio 1.1 1.1
[2017-10-21] MEDS: Fluticasone-Salmeterol 500-50mcg Diskus INH SCH ×2 (09:02→22:01)
[2017-10-21] MEDS: Multiple Vitamins Tab PO SCH (09:07)
--- NOTE | 2017-10-21 10:02 | CP.PCM.CON ---
History of Present Illness - History of Present Illness History of Present Illness: 52 year old male with past medical history of CHF with reduced EF, HTN, COPD, alcohol and cocaine abuse, who presents to the ED requesting for alcohol and cocaine detox. Upon admission to detox, medicine consultation was placed for uncontrolled hypertension. Patient denied taking his blood pressure medication on day of admission. Patient states he acan ambulate two blocks before he gets short of breath and uses 3 pillows at night to elevate head. He states yesterday he had on and off chest pain that was located mid sternal and described it as "nerve pinch" without any radiation. Patient denies chest pain currently, palpitation, SOB, headache, blurry vision, numbness or tingling. Troponin was elevated but trending down. PMH: reduced EF CHF, HTN, COPD, alcohol and cocaine abuse allergies: NKDA meds: see med list PSH: left foot surgery about 5 years ago Fam: father from DM2, mother from breast cancer SOC: smokes 1/2 pack/day, sometimes less, Review of Systems - Constitutional Constitutional: absent: Chills - EENT Eyes: absent: Blurred Vision, Change in Vision - Cardiovascular Cardiovascular: absent: Chest Pain, Claudication, Dyspnea - Respiratory Respiratory: absent: Cough, Dyspnea - Gastrointestinal Gastrointestinal: absent: Abdominal Pain, Nausea, Vomiting - Musculoskeletal Musculoskeletal: absent: Abnormal Gait - Neurological Neurological: absent: Disequilibrium, Dizziness, Headaches, Tingling, Weakness Past Patient History - Infectious Disease Hx of Infectious Diseases: None - Past Medical History & Family History Past Medical History?: Yes - Past Social History Smoking Status: Light Smoker < 10 Cigarettes Daily - CARDIAC Hx Cardiac Disorders: No Hx Hypertension: Yes - PULMONARY Hx Tuberculosis: No - NEUROLOGICAL HX Cerebrovascular Accident: No Hx Seizures: No - HEENT Hx HEENT Problems: No - RENAL Hx Chronic Kidney Disease: Yes - ENDOCRINE/METABOLIC Hx Hyperthyroidism: No Hx Hypothyroidism: No - HEMATOLOGICAL/ONCOLOGICAL Hx Cancer: No Hx Human Immunodeficiency Virus (HIV): No - INTEGUMENTARY Hx Dermatological Problems: No - MUSCULOSKELETAL/RHEUMATOLOGICAL Hx Arthritis: Yes Hx Falls: No Hx Fractures: Yes - GASTROINTESTINAL Hx Gastritis: Yes - GENITOURINARY/GYNECOLOGICAL Hx Sexually Transmitted Disorders: No - PSYCHIATRIC Hx Substance Use: Yes - SURGICAL HISTORY Hx Appendectomy: No Hx Carotid Endarterectomy: No Hx Cholecystectomy: No Hx Coronary Artery Bypass Graft: No Hx Coronary Stent: No Hx Tonsillectomy: No - ANESTHESIA Hx Anesthesia: Yes Hx Anesthesia Reactions: No Hx Malignant Hyperthermia: No Meds Allergies/Adverse Reactions: Allergies Allergy/AdvReac Type Severity Reaction Status Date / Time No Known Allergies Allergy Verified 10/09/17 07:44 - Medications Medications: Current Medications Albuterol/Ipratropium (Duoneb 3 Mg/0.5 Mg (3 Ml) Ud) 3 ml INH RQ6 PRN PRN Reason: Shortness of Breath Aspirin (Aspirin Chewable) 81 mg PO DAILY [facility] Last Admin: 10/21/17 09:07 Dose: 81 mg Carvedilol (Coreg) 25 mg PO BID [facility] Last Admin: 10/21/17 09:07 Dose: 25 mg Chlordiazepoxide (Librium) 25 mg PO Q8H [facility] PRN Reason: Taper Stop: 10/23/17 17:59 Last Admin: 10/21/17 09:06 Dose: 25 mg Chlordiazepoxide (Librium) 25 mg PO Q4H PRN PRN Reason: Alcohol Withdrawal Folic Acid (Folic Acid) 1 mg PO DAILY [facility] Last Admin: 10/21/17 09:06 Dose: 1 mg Furosemide (Lasix) 40 mg PO DAILY [facility] Last Admin: 10/20/17 09:17 Dose: 40 mg Heparin Sodium (Porcine) (Heparin) 5,000 units SC Q8 [facility] Last Admin: 10/21/17 06:01 Dose: 5,000 units Isosorbide Mononitrate (Imdur Er) 30 mg PO DAILY [facility] Last Admin: 10/21/17 09:07 Dose: 30 mg Losartan Potassium (Cozaar) 50 mg PO DAILY [facility] Last Admin: 10/21/17 09:06 Dose: 50 mg Multivitamins (Hexavitamin) 1 tab PO DAILY [facility] Last Admin: 10/21/17 09:07 Dose: 1 tab Rosuvastatin Calcium (Crestor) 5 mg PO HS [facility] Last Admin: 10/20/17 21:06 Dose: 5 mg Fluticasone/Salmeterol (Advair Diskus 500/50) 1 puff INH RQ12 [facility] Last Admin: 10/21/17 09:02 Dose: 1 puff Thiamine HCl (Vitamin B1 Tab) 100 mg PO DAILY [facility] Last Admin: 10/21/17 09:07 Dose: 100 mg Trazodone HCl (Desyrel) 50 mg PO HS [facility] Last Admin: 10/20/17 21:09 Dose: 50 mg Physical Exam - Constitutional Appears: Non-toxic, Unkempt - Head Exam Head Exam: ATRAUMATIC, NORMAL INSPECTION, NORMOCEPHALIC - Eye Exam Eye Exam: EOMI, Normal appearance - Respiratory Exam Respiratory Exam: Clear to Auscultation Bilateral, NORMAL BREATHING PATTERN - Cardiovascular Exam Cardiovascular Exam: REGULAR RHYTHM, +S1, +S2 - GI/Abdominal Exam GI & Abdominal Exam: Normal Bowel Sounds - Extremities Exam Extremities exam: Positive for: pedal pulses present. Negative for: pedal edema , tenderness - Neurological Exam Neurological exam: Alert, Oriented x3 Results - Vital Signs Recent Vital Signs: Last Vital Signs Temp 97.4 F L 10/21/17 08:06 Pulse 78 10/21/17 08:06 Resp 20 10/21/17 08:06 BP 139/91 H 10/21/17 09:07 Pulse Ox 97 10/21/17 08:06 - Labs Result Diagrams: 10/22/17 06:54 10/22/17 06:54 Labs: Laboratory Results - last 24 hr 10/21/17 10/21/17 06:45 06:45 WBC 6.7 RBC 4.52 Hgb 14.3 Hct 40.9 MCV 90.6 MCH 31.6 H MCHC 34.9 RDW 13.7 Plt Count 197 MPV 9.1 Neut % (Auto) 62.9 Lymph % (Auto) 20.6 [place] % (Auto) 9.2 Eos % (Auto) 6.5 H Baso % (Auto) 0.8 Neut # (Auto) 4.2 Lymph # (Auto) 1.4 [place] # (Auto) 0.6 Eos # (Auto) 0.4 Baso # (Auto) 0.1 Sodium 140 Potassium 4.1 Chloride 104 Carbon Dioxide 26 Anion Gap 14 BUN 28 H Creatinine 2.5 H Est GFR ( Amer) 33 Est GFR (Non-Af Amer) 27 Random Glucose 130 H Calcium 9.1 Phosphorus 3.1 Magnesium 2.0 Total Bilirubin 0.5 AST 14 L D ALT 16 L D Alkaline Phosphatase 68 Total Protein 6.1 L Albumin 3.2 L Globulin 2.8 Albumin/Globulin Ratio 1.1 Assessment & Plan - Assessment and Plan (Free Text) Assessment: 52 year old male with past medical history of CHF with reduced EF, HTN, COPD, alcohol and cocaine abuse, who presents to the ED requesting for alcohol and cocaine detox. Patient was hypertensive and had positive troponins. Will repeat echo and add plavix. Plan: HTN-acute -139/91 -Cozaar 50mg PO daily -Coreg 25mg PO BID Troponin Elevated -No acute symptoms, denies chest pain, SOB -EKG: NSR 83 bpm, left axis deviation, LVH, early repolarization V2-V5, T wave inversions II, III, aVF, V6 - EKG unchanged from pior done on 10/06/17. Patient without chest pain -Troponin down trendin.3280---->0.2830 to .2760 -Cardiac Catherization 02/2017: Moderate single vessel CAD of mid LDA -Coreg 25mg PO BID -ASA 81mg PO daily -Crestor 5mg PO HS -Plavix stareted -will repeat Echo to evaluate for wall motion abnormality Non Ischemic Dilated Cardiomyopathy -Chest X-ray (10/19/17): No increased markings seen in the upper lung zones; rule out developing upper lobe infiltrates versus mild cephalization.Cardiomegaly. -Echo ( 07/31/17): The left ventricle is mildly dilated. The systolic function severely impaired. EF< 20%. For complete report, please refer to the EMR -BNP: 4190 -Imdur 30mg PO daily -Cozaar 50mg PO daily
[2017-10-21] MEDS ORDERED: Sodium Chloride 0.9% 1,000 ML IV SCH (11:00)
--- NOTE | 2017-10-21 12:25 | PCM.PYCHPN ---
Psychiatric Progress Note - Psychiatric Progress Note Patient seen today, length of contact: 16 min Patient Chief Complaint: "I feel better. I want to go to a rehab" Problems Identified/Issues Discussed: The pt is seen, chart reviewed, case discussed with staff. The pt is compliant with medications and reports no side-effects. Symptoms are improving but needs more time to stabilize. After care discussed, support and psychoeducation given. Pt is a candidate for physical rehab, [facility], especially if he gets on pacemaker, drug rehabs will be hard to get in. Medication Change: Yes Medical Record Reviewed: Yes Mental Status Examination - Cognitive Function Orientation: Person, Place, Situation, Time Memory: Impaired Attention: Poor Concentration: Poor Association: WNL Fund of Knowledge: Poor - Mood Mood: Anxious - Affect Affect: Constricted - Speech Speech: Appropriate - Formal Thought Process Formal Thought Process: No Impairment - Suicidal Ideation Suicidal Ideation: No - Homicidal Ideation Homicidal Ideation: No Goal/Treatment Plan - Goal/Treatment Plan Need for Continued Stay: Discharge may exacerbated symptoms, Severe functional impairment, Other (medical) Progress Toward Problem(s) and Goals/Treatment Plan: Librium detox As needed medications Gabapentin for augmentation if needed All risks, benefits and alternatives of medications, including no medications, discussed and the patient understood and agreed. Supportive therapy and psychoeducation [place] for abstinence Refer to [facility]? Attend self-help groups as well [place] for smoking cessation and patch if needed
--- NOTE | 2017-10-21 18:37 | CP.PCM.PN ---
Subjective - Date & Time of Evaluation Date of Evaluation: 10/21/17 Time of Evaluation: 07:55 - Subjective Subjective: Medicine progress note ( Dr. Garcia's service) Patient was seen and examined at bedside. Patient was resting comfortably in bed in no acute distress. Patient denies chest pain, palpitations, SOB, diaphoresis, headache, blurry vision. Patient is ambulating without difficulty. Objective - Vital Signs/Intake and Output Vital Signs (last 24 hours): Temp Pulse Resp BP Pulse Ox 97.9 F 78 20 130/86 96 10/21/17 15:00 10/21/17 15:00 10/21/17 15:00 10/21/17 17:43 10/21/17 15:00 Intake and Output: 10/21/17 10/21/17 06:59 18:59 Intake Total 800 Balance 800 - Medications Medications: Current Medications Albuterol/Ipratropium (Duoneb 3 Mg/0.5 Mg (3 Ml) Ud) 3 ml INH RQ6 PRN PRN Reason: Shortness of Breath Aspirin (Aspirin Chewable) 81 mg PO DAILY [facility] Last Admin: 10/21/17 09:07 Dose: 81 mg Carvedilol (Coreg) 25 mg PO BID [facility] Last Admin: 10/21/17 17:43 Dose: 25 mg Chlordiazepoxide (Librium) 25 mg PO Q12H [facility] PRN Reason: Taper Stop: 10/23/17 17:59 Last Admin: 10/21/17 17:42 Dose: 25 mg Chlordiazepoxide (Librium) 25 mg PO Q4H PRN PRN Reason: Alcohol Withdrawal Clopidogrel Bisulfate (Plavix) 75 mg PO DAILY [facility] Folic Acid (Folic Acid) 1 mg PO DAILY [facility] Last Admin: 10/21/17 09:06 Dose: 1 mg Furosemide (Lasix) 40 mg PO DAILY [facility] Last Admin: 10/20/17 09:17 Dose: 40 mg Heparin Sodium (Porcine) (Heparin) 5,000 units SC Q8 [facility] Last Admin: 10/21/17 13:16 Dose: 5,000 units Isosorbide Mononitrate (Imdur Er) 30 mg PO DAILY [facility] Last Admin: 10/21/17 09:07 Dose: 30 mg Losartan Potassium (Cozaar) 50 mg PO DAILY [facility] Last Admin: 10/21/17 09:06 Dose: 50 mg Multivitamins (Hexavitamin) 1 tab PO DAILY [facility] Last Admin: 10/21/17 09:07 Dose: 1 tab Rosuvastatin Calcium (Crestor) 5 mg PO [facility] Last Admin: 10/20/17 21:06 Dose: 5 mg Fluticasone/Salmeterol (Advair Diskus 500/50) 1 puff INH RQ12 [facility] Last Admin: 10/21/17 09:02 Dose: 1 puff Thiamine HCl (Vitamin B1 Tab) 100 mg PO DAILY [facility] Last Admin: 10/21/17 09:07 Dose: 100 mg Trazodone HCl (Desyrel) 50 mg PO [facility] Last Admin: 10/20/17 21:09 Dose: 50 mg - Labs Labs: 10/21/17 06:45 10/21/17 06:45 - Constitutional Appears: Well, No Acute Distress - Head Exam Head Exam: ATRAUMATIC, NORMAL INSPECTION - Eye Exam Eye Exam: EOMI, Normal appearance - ENT Exam ENT Exam: Mucous Membranes Moist - Respiratory Exam Respiratory Exam: Clear to Ausculation Bilateral, NORMAL BREATHING PATTERN. absent: Prolonged Expiratory Phase, Rhonchi, Wheezes, Respiratory Distress - Cardiovascular Exam Cardiovascular Exam: REGULAR RHYTHM, +S1. absent: Murmur - GI/Abdominal Exam GI & Abdominal Exam: Soft, Normal Bowel Sounds. absent: Firm, Guarding, Rigid, Tenderness - Extremities Exam Extremities Exam: Normal Inspection. absent: Calf Tenderness, Pedal Edema - Neurological Exam Neurological Exam: Alert, Awake, Oriented x3 - Psychiatric Exam Psychiatric exam: Normal Affect, Normal Mood - Skin Skin Exam: Normal Color Assessment and Plan (1) Uncontrolled hypertension Assessment & Plan: Stable with current inpatient medications Possibly secondary to substance withdrawal Medication: * Cozaar 50mg PO daily---> 25mg PO daily * Coreg 25mg PO BID * Imdur 30mg PO daily Status: Acute (2) Elevated troponin Assessment & Plan: Event Sales Representative, Dr. Branodn--> Help appreciated * Management as per recommendation No acute symptoms EKG: NSR 83 bpm, left axis deviation, LVH, early repolarization V2-V5, T wave inversions II, III, aVF, V6 - EKG unchanged from pior done on 10/06/17. Patient without chest pain Troponin down trendin.3280---->0.2830, 0.2760 Cardiac Catherization 02/2017: Moderate single vessel CAD of mid LDA F/u repeat work for worsening heart failure or abnormality , possible cardiac catherization Medication: * Coreg 25mg PO BID * ASA 81mg PO daily * Crestor 5mg PO HS Status: Acute (3) Non-ischemic cardiomyopathy Assessment & Plan: Chest X-ray (10/19/17): No increased markings seen in the upper lung zones; rule out developing upper lobe infiltrates versus mild cephalization.Cardiomegaly. Echo ( 07/31/17): The left ventricle is mildly dilated. The systolic function severely impaired. EF< 20%. For complete report, please refer to the EMR Patient does have a life vest, that he does not aware Patient is aware that he needs an AICD BNP: 4190 Medication: * Imdur 30mg PO daily * Cozaar 50mg PO daily ---> 25mg PO daily ( due to [place]) * Lasix 20mg PO M,W,F * Imdur 30mg PO daily Status: Acute (4) Substance abuse Assessment & Plan: Psychiatrist, Dr. Gibbs on board * Management as per recommendation Status: Acute (5) History of COPD Assessment & Plan: Advair 1 puff q12h Duoneb RQ6H prn for shortness of breath Status: Acute (6) Prophylactic measure Assessment & Plan: GI: Not indication DVT: Not indicated, Ambulating, SCDS All plans and management discussed with Dr. Garcia Status: Acute
[2017-10-21] MEDS ORDERED: guaiFENesin-Codeine 100-10mg/5ml Syrup (10ml) UD PO ONE (23:45)
[2017-10-22 00:44] VITALS: O2SAT 95
[2017-10-22 07:05] LABS: BASO % 0.7 % (0.0-2.0); EOS # 0.5 K/uL (0.0-0.7); EOS % 6.9 % (0.0-4.0); HEMOGLOBIN 14.8 g/dL (12.0-18.0); LYMPH # 1.3 K/uL (1.0-4.3); LYMPH % 18.8 % (20.0-40.0); MEAN CELL VOLUME 90.9 fL (80.0-94.0); MEAN CORPUSCULAR HGB CONC 34.1 g/dL (33.0-37.0); MEAN PLATELET VOLUME 9.2 fL (7.2-11.7); MONO # 0.6 K/uL (0.0-0.8); MONO % 7.9 % (0.0-10.0); NEUT # 4.7 K/uL (1.8-7.0); NEUT % 65.7 % (50.0-75.0); RBC 4.78 Mil/uL (4.40-5.90); RED CELL DISTRIBUTION WIDTH 13.9 % (11.5-14.5); WHITE BLOOD COUNT 7.2 K/uL (4.8-10.8)
[2017-10-22 07:39] VITALS: PULSE 78
[2017-10-22 07:46] LABS: ALB/GLOB RATIO 1.2 (1.0-2.1); ALBUMIN 3.6 g/dL (3.5-5.0); CALCIUM 9.5 mg/dl (8.6-10.4)
[2017-10-22 07:48] VITALS: BP 138/93; TEMP 98.1
[2017-10-22] MEDS: Fluticasone-Salmeterol 500-50mcg Diskus INH SCH (07:50)
[2017-10-22] MEDS: Multiple Vitamins Tab PO SCH (09:14)
--- NOTE | 2017-10-22 10:07 | CP.PCM.PN ---
Subjective - Date & Time of Evaluation Date of Evaluation: 10/22/17 Time of Evaluation: 08:00 - Subjective Subjective: Patient seen and evaluated bedside. No acute issues overnight. patient denies any chest pain or any other complaints. Patient wants to go home. Objective - Vital Signs/Intake and Output Vital Signs (last 24 hours): Temp Pulse Resp BP Pulse Ox 98.1 F 78 20 138/93 H 95 10/22/17 07:05 10/22/17 07:10 10/22/17 07:05 10/22/17 09:16 10/22/17 07:05 Intake and Output: 10/22/17 10/22/17 06:59 18:59 Intake Total 1300 Balance 1300 - Medications Medications: Current Medications Albuterol/Ipratropium (Duoneb 3 Mg/0.5 Mg (3 Ml) Ud) 3 ml INH RQ6 PRN PRN Reason: Shortness of Breath Aspirin (Aspirin Chewable) 81 mg PO DAILY [facility] Last Admin: 10/22/17 09:16 Dose: 81 mg Carvedilol (Coreg) 25 mg PO BID [facility] Last Admin: 10/22/17 09:16 Dose: 25 mg Chlordiazepoxide (Librium) 25 mg PO Q12H [facility] PRN Reason: Taper Stop: 10/23/17 17:59 Last Admin: 10/22/17 05:00 Dose: 25 mg Chlordiazepoxide (Librium) 25 mg PO Q4H PRN PRN Reason: Alcohol Withdrawal Clopidogrel Bisulfate (Plavix) 75 mg PO DAILY [facility] Last Admin: 10/22/17 09:14 Dose: 75 mg Folic Acid (Folic Acid) 1 mg PO DAILY [facility] Last Admin: 10/22/17 09:14 Dose: 1 mg Furosemide (Lasix) 20 mg PO F [facility] Heparin Sodium (Porcine) (Heparin) 5,000 units SC Q8 [facility] Last Admin: 10/22/17 05:01 Dose: 5,000 units Isosorbide Mononitrate (Imdur Er) 30 mg PO DAILY [facility] Last Admin: 10/22/17 09:14 Dose: 30 mg Losartan Potassium (Cozaar) 25 mg PO DAILY [facility] Last Admin: 10/22/17 09:18 Dose: 25 mg Multivitamins (Hexavitamin) 1 tab PO DAILY [facility] Last Admin: 10/22/17 09:14 Dose: 1 tab Rosuvastatin Calcium (Crestor) 5 mg PO HS [facility] Last Admin: 10/21/17 21:21 Dose: 5 mg Fluticasone/Salmeterol (Advair Diskus 500/50) 1 puff INH RQ12 [facility] Last Admin: 10/22/17 07:50 Dose: 1 puff Thiamine HCl (Vitamin B1 Tab) 100 mg PO DAILY [facility] Last Admin: 10/22/17 09:14 Dose: 100 mg Trazodone HCl (Desyrel) 50 mg PO [facility] Last Admin: 10/21/17 21:21 Dose: 50 mg - Labs Labs: 10/22/17 06:54 10/22/17 06:54 - Constitutional Appears: Non-toxic, No Acute Distress, Unkempt - Head Exam Head Exam: ATRAUMATIC, NORMAL INSPECTION, NORMOCEPHALIC - Eye Exam Eye Exam: EOMI, Normal appearance - ENT Exam ENT Exam: Mucous Membranes Moist - Respiratory Exam Respiratory Exam: Clear to Ausculation Bilateral, NORMAL BREATHING PATTERN - Cardiovascular Exam Cardiovascular Exam: REGULAR RHYTHM, +S1, +S2 - Neurological Exam Neurological Exam: Alert, Awake, Oriented x3 Assessment and Plan - Assessment and Plan (Free Text) Assessment: 52 year old male with past medical history of CHF with reduced EF, HTN, COPD, alcohol and cocaine abuse, who presents to the ED requesting for alcohol and cocaine detox. Patient was hypertensive and had positive troponins. Plan: HTN -continue meds Troponin Elevation -No acute symptoms, denies chest pain, SOB -EKG: NSR 83 bpm, left axis deviation, LVH, early repolarization V2-V5, T wave inversions II, III, aVF, V6 - EKG unchanged from pior done on 10/06/17. 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 Will manage medically with Beta yeimy, aldactone, and ARB. Patient will follow up as outpatient as needed Non Ischemic Dilated Cardiomyopathy -Chest X-ray (10/19/17): No increased markings seen in the upper lung zones; rule out developing upper lobe infiltrates versus mild cephalization.Cardiomegaly. -Echo ( 07/31/17): The left ventricle is mildly dilated. The systolic function severely impaired. EF< 20%. 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 Will manage medically with Beta yeimy, aldactone, and ARB
--- NOTE | 2017-10-22 15:46 | CP.PCM.CON ---
History of Present Illness - History of Present Illness History of Present Illness: Nephrology Consultation Note: Assessment: Stable Acute Kidney Injury (N17.9) likely hemodynamic and due to Substance abuses cocaine Hypertensive Chronic Kidney Disease (I12.9) Chronic Kidney Disease (N18.3) Stage 3 with ? mg proteinuria (R80.9) likely due to htn, cocaine Chronic active alcohol and cocaine abuse chronic systolic congestive heart failure LVEF< 20% chronic Hep B positive Plan No acute need for renal replacement therapy at this time. Hypertension control with meds as ordered. Patient on losartan Monitor Input/Output, daily weights and renal function with basic metabolic panel CHF management as per cardiology Patient was counseled and educated to abstain from alcohol and cocaine Check urine analysis, spot protein/creatinine and albumin/creatinine ratio, renal sonogram. Check for 25-OH vitamin D, iPTH, phosphorus level Dose meds/antibiotics for reduced GFR. Avoid fleets enema/magnesium based laxatives. Avoid nephrotoxins/NSAIDs/ iodinated contrast (unless needed emergently) Glycemic control Further work up/management as per primary team Thanks for allowing me to participate in care of your patient. Will follow patient with you. Please call if any Qs. Dr Damien Villalobos Office: [phone] Chief Complaint; None, I am ready to go home Reason for consultation acute kidney injury CKD HPI: Pt is a 52 M with hx of hypertension (years) , Chronic active alcohol and cocaine abuse chronic systolic congestive heart failure LVEF less than 20% chronic hep B positive presented to Hospital for alcohol and cocaine detox for the severe hypertension hence transferred to medical floor. Consult for acute kidney injury and chronic kidney disease management. Patient also has baseline CKD stage III with creatinine 1.6-1.8 Denies OTC/herbal meds or NSAIDs No recent iodinated contrast exposure. No obvious episodes of low BP. Patient says I feel fine and ready to go home now ROS: Cardiovascular: No chest pain. Pulmonary: No shortness of breath Gastrointestinal: denies abdominal pain No nausea. No vomiting. Genitourinary: No pain while urinating. Denies blood in urine. All other negative except as mentioned in HPI Physical Examination: General Appearance: Comfortable, in no acute respiratory distress, co-operative . Vitals reviewed and noted as below Head; Atraumatic, normocephalic ENT: no ulcers no thrush. Tongue is midline. Oropharynx: no rash or ulcers. EYES: Pupils are equal, round and reactive to light accommodation. Eye muscles and extraocular movement intact. Sclera is anicteric. Neck; supple no lymphadenopathy, no thyromegaly or bruit Lungs: Normal respiratory rate/effort. Breath sounds bilateral equal and clear Heart: Normal rate. s1s2 normal. No rub or gallop. Extremities: no edema. No varicose veins Neurological: Patient is alert, awake and oriented to person, place and time. No focal deficit. Strength bilateral appropriate and equal Skin: Warm and dry. Normal turgor. No rash. Palpitation: Normal elasticity for age Abdomen: Abdomen is soft. Bowel sounds +. There is no abdominal tenderness, no guarding/rigidity no organomegaly Psych: Limited insight and normal affect/mood MSK: no joint tenderness or swelling. Digits and nails normal, no deformity : kidney or bladder not palpable Labs/imaging reviewed. Past medical history, past surgical history, family history, social history, allergy reviewed and noted as below Family hx: no hx of CKD. Rest non-contributory Workup in the past C3-C4 normal hepatitis B positive Hep C and HIV negative Uterus positive for cocaine and alcohol Past Patient History - Infectious Disease Hx of Infectious Diseases: None - Past Medical History & Family History Past Medical History?: Yes - Past Social History Smoking Status: Light Smoker < 10 Cigarettes Daily - CARDIAC Hx Cardiac Disorders: No Hx Hypertension: Yes - PULMONARY Hx Tuberculosis: No - NEUROLOGICAL HX Cerebrovascular Accident: No Hx Seizures: No - HEENT Hx HEENT Problems: No - RENAL Hx Chronic Kidney Disease: Yes - ENDOCRINE/METABOLIC Hx Hyperthyroidism: No Hx Hypothyroidism: No - HEMATOLOGICAL/ONCOLOGICAL Hx Cancer: No Hx Human Immunodeficiency Virus (HIV): No - INTEGUMENTARY Hx Dermatological Problems: No - MUSCULOSKELETAL/RHEUMATOLOGICAL Hx Arthritis: Yes Hx Falls: No Hx Fractures: Yes - GASTROINTESTINAL Hx Gastritis: Yes - GENITOURINARY/GYNECOLOGICAL Hx Sexually Transmitted Disorders: No - PSYCHIATRIC Hx Substance Use: Yes - SURGICAL HISTORY Hx Appendectomy: No Hx Carotid Endarterectomy: No Hx Cholecystectomy: No Hx Coronary Artery Bypass Graft: No Hx Coronary Stent: No Hx Tonsillectomy: No - ANESTHESIA Hx Anesthesia: Yes Hx Anesthesia Reactions: No Hx Malignant Hyperthermia: No Meds Allergies/Adverse Reactions: Allergies Allergy/AdvReac Type Severity Reaction Status Date / Time No Known Allergies Allergy Verified 10/09/17 07:44 Results - Vital Signs Recent Vital Signs: Last Vital Signs Temp 98.1 F 10/22/17 07:05 Pulse 78 10/22/17 07:10 Resp 20 10/22/17 07:05 BP 138/93 H 10/22/17 09:16 Pulse Ox 95 10/22/17 07:05 - Labs Result Diagrams: 10/22/17 06:54 10/22/17 06:54 Labs: Laboratory Results - last 24 hr 10/22/17 10/22/17 06:54 06:54 WBC 7.2 RBC 4.78 Hgb 14.8 Hct 43.4 MCV 90.9 MCH 31.0 MCHC 34.1 RDW 13.9 Plt Count 216 MPV 9.2 Neut % (Auto) 65.7 Lymph % (Auto) 18.8 L [place] % (Auto) 7.9 Eos % (Auto) 6.9 H Baso % (Auto) 0.7 Neut # (Auto) 4.7 Lymph # (Auto) 1.3 [place] # (Auto) 0.6 Eos # (Auto) 0.5 Baso # (Auto) 0.0 Sodium 141 Potassium 4.0 Chloride 105 Carbon Dioxide 25 Anion Gap 16 BUN 26 H Creatinine 2.2 H Est GFR ( Amer) 38 Est GFR (Non-Af Amer) 32 Random Glucose 129 H Calcium 9.5 Phosphorus 3.8 Magnesium 2.0 Total Bilirubin 0.5 AST 18 ALT 11 L D Alkaline Phosphatase 70 Total Protein 6.6 Albumin 3.6 Globulin 3.0 Albumin/Globulin Ratio 1.2
--- NOTE | 2017-10-22 16:20 | CP.PCM.DIS ---
Provider - Provider Date of Admission: 10/19/17 07:41 Attending physician: Rachael Guevara MD Time Spent in preparation of Discharge (in minutes): 35 Diagnosis - Discharge Diagnosis (1) Uncontrolled hypertension Status: Chronic (2) Elevated troponin Status: Acute (3) Non-ischemic cardiomyopathy Status: Chronic (4) Substance abuse Status: Chronic (5) History of COPD Status: Chronic (6) Prophylactic measure Status: Acute Hospital Course - Lab Results Lab Results: Most Recent Lab Values WBC 7.2 K/uL (4.8-10.8) 10/22/17 06:54 RBC 4.78 Mil/uL (4.40-5.90) 10/22/17 06:54 Hgb 14.8 g/dL (12.0-18.0) 10/22/17 06:54 Hct 43.4 % (35.0-51.0) 10/22/17 06:54 MCV 90.9 fL (80.0-94.0) 10/22/17 06:54 MCH 31.0 pg (27.0-31.0) 10/22/17 06:54 MCHC 34.1 g/dL (33.0-37.0) 10/22/17 06:54 RDW 13.9 % (11.5-14.5) 10/22/17 06:54 Plt Count 216 K/uL (130-400) 10/22/17 06:54 MPV 9.2 fL (7.2-11.7) 10/22/17 06:54 Neut % (Auto) 65.7 % (50.0-75.0) 10/22/17 06:54 Lymph % (Auto) 18.8 % (20.0-40.0) L 10/22/17 06:54 [place] % (Auto) 7.9 % (0.0-10.0) 10/22/17 06:54 Eos % (Auto) 6.9 % (0.0-4.0) H 10/22/17 06:54 Baso % (Auto) 0.7 % (0.0-2.0) 10/22/17 06:54 Neut # (Auto) 4.7 K/uL (1.8-7.0) 10/22/17 06:54 Lymph # (Auto) 1.3 K/uL (1.0-4.3) 10/22/17 06:54 [place] # (Auto) 0.6 K/uL (0.0-0.8) 10/22/17 06:54 Eos # (Auto) 0.5 K/uL (0.0-0.7) 10/22/17 06:54 Baso # (Auto) 0.0 K/uL (0.0-0.2) 10/22/17 06:54 Sodium 141 mmol/L (132-148) 10/22/17 06:54 Potassium 4.0 mmol/L (3.6-5.2) 10/22/17 06:54 Chloride 105 mmol/L (98-107) 10/22/17 06:54 Carbon Dioxide 25 mmol/L (22-30) 10/22/17 06:54 Anion Gap 16 (10-20) 10/22/17 06:54 BUN 26 mg/dL (9-20) H 10/22/17 06:54 Creatinine 2.2 mg/dL (0.8-1.5) H 10/22/17 06:54 Est GFR ( Amer) 38 10/22/17 06:54 Est GFR (Non-Af Amer) 32 10/22/17 06:54 Random Glucose 129 mg/dL (75-110) H 10/22/17 06:54 Calcium 9.5 mg/dl (8.6-10.4) 10/22/17 06:54 Phosphorus 3.8 mg/dL (2.5-4.5) 10/22/17 06:54 Magnesium 2.0 mg/dL (1.6-2.3) 10/22/17 06:54 Total Bilirubin 0.5 mg/dL (0.2-1.3) 10/22/17 06:54 AST 18 U/L (17-59) 10/22/17 06:54 ALT 11 U/L (21-72) L D 10/22/17 06:54 Alkaline Phosphatase 70 U/L (38-126) 10/22/17 06:54 Total Creatine Kinase 100 U/L (55-170) 10/20/17 00:52 CK-MB (Mass) 1.02 ng/mL (0.0-3.38) 10/20/17 00:52 Troponin I 0.2760 ng/mL (0.00-0.120) H* 10/20/17 00:52 NT-Pro-B Natriuret Pep 4910 pg/mL (0-900) H 10/19/17 13:31 Total Protein 6.6 g/dL (6.3-8.3) 10/22/17 06:54 Albumin 3.6 g/dL (3.5-5.0) 10/22/17 06:54 Globulin 3.0 gm/dL (2.2-3.9) 10/22/17 06:54 Albumin/Globulin Ratio 1.2 (1.0-2.1) 10/22/17 06:54 Urine Color Yellow (YELLOW) 10/19/17 01:53 Urine Clarity Clear (Clear) 10/19/17 01:53 Urine pH 5.0 (5.0-8.0) 10/19/17 01:53 Ur Specific [place] 1.012 (1.003-1.030) 10/19/17 01:53 Urine Protein 2+ mg/dL (NEGATIVE) H 10/19/17 01:53 Urine Glucose (UA) Normal mg/dL (Normal) 10/19/17 01:53 Urine Ketones Negative mg/dL (NEGATIVE) 10/19/17 01:53 Urine Blood Negative (NEGATIVE) 10/19/17 01:53 Urine Nitrate Negative (NEGATIVE) 10/19/17 01:53 Urine Bilirubin Negative (NEGATIVE) 10/19/17 01:53 Urine Urobilinogen Normal mg/dL (0.2-1.0) 10/19/17 01:53 Ur Leukocyte Esterase Neg Jacqueline/uL (Negative) 10/19/17 01:53 Urine WBC (Auto) 2 /hpf (0-5) 10/19/17 01:53 Urine RBC (Auto) < 1 /hpf (0-3) 10/19/17 01:53 Ur Squamous Epith Cells < 1 /hpf (0-5) 10/19/17 01:53 Urine Opiates Screen Negative (NEGATIVE) 10/19/17 01:53 Urine Methadone Screen Negative (NEGATIVE) 10/19/17 01:53 Ur Barbiturates Screen Negative (NEGATIVE) 10/19/17 01:53 Ur Phencyclidine Scrn Negative (NEGATIVE) 10/19/17 01:53 Ur Amphetamines Screen Negative (NEGATIVE) 10/19/17 01:53 U Benzodiazepines Scrn Negative (NEGATIVE) 10/19/17 01:53 U Oth Cocaine Metabols Positive (NEGATIVE) H 10/19/17 01:53 U Cannabinoids Screen Negative (NEGATIVE) 10/19/17 01:53 Alcohol, Quantitative 63 mg/dl (0-10) H 10/19/17 01:53 - Hospital Course Hospital Course: HPI ( As per admission): He is here for alcohol detox, drinking at least 6 of the 24 oz beers, no liquor. He also uses cocaine "a lot" by snorting, ie $100+ per day Patient is a 52 year old male with past medical history of reduced EF CHF, HTN, COPD, alcohol and cocaine abuse, who presents to the ED requesting for alcohol and cocaine detox. Upon admission to detox, medicine consultation was placed for uncontrolled hypertension. Patient was seen and examined at bedside as he was resting comfortably in bed in no acute distress. Patient denied taking his blood pressure medication today. Patient denies chest pain, palpitation, SOB, headache, blurry vision, numbness and tingling. EKG and Troponin were ordered after encounter, troponin was elevated and Dr. Oliveira was made aware by hospitalist attending. Hospital Course: Patient was admitted with the consideration of alcohol and cocaine detox. Medicine consultation was placed for uncontrolled hypertension, which was then controlled with appropriate test. Rework Operator, Dr. Oliveira was consulted due patient's extensive cardiac history. Patient is aware of his cardiac history and need for AICD. Patient was also made of his worsening kidney function and was seen by Stamp Pad Finisher, Dr. Villalobos who made recommendation for appropriate work- up. Patient signed out AMA. At the point of AMA, patient was instructed to follow up with inpatient consultants as he is imperative for his health. Pertinent imaging: EKG: NSR 83 bpm, left axis deviation, LVH, early repolarization V2-V5, T wave inversions II, III, aVF, V6 - EKG unchanged from pior done on 10/06/17 Troponin down trendin.3280---->0.2830, 0.2760 Cardiac Catherization 02/2017: Moderate single vessel CAD of mid LDA Chest X-ray (10/19/17): No increased markings seen in the upper lung zones; rule out developing upper lobe infiltrates versus mild cephalization.Cardiomegaly. Echo ( 07/31/17): The left ventricle is mildly dilated. The systolic function severely impaired. EF< 20%. For complete report, please refer to the EMR Patient does have a life vest, that he does not aware Patient is aware that he needs an AICD This is a brief summary of event. For a complete course, please refer to the medical records. Discharge Exam - Head Exam Head Exam: ATRAUMATIC, NORMAL INSPECTION, NORMOCEPHALIC - Eye Exam Eye Exam: EOMI - ENT Exam ENT Exam: Mucous Membranes Moist - Respiratory Exam Respiratory Exam: Clear to PA & Lateral, NORMAL BREATHING PATTERN - Cardiovascular Exam Cardiovascular Exam: REGULAR RHYTHM, +S1, +S2 - GI/Abdominal Exam GI & Abdominal Exam: Normal Bowel Sounds, Soft. absent: Tenderness - Extremities Exam Extremities exam: normal inspection - Neurological Exam Neurological exam: Alert, Oriented x3 - Psychiatric Exam Psychiatric exam: Normal Affect - Skin Skin Exam: Normal Color Discharge Plan - Follow Up Plan Condition: STABLE Disposition: AGAINST MEDICAL ADVICE Instructions: DASH Diet, Cocaine Use Disorder, COPD Including Emphysema (DC), Heart Failure, Adult (DC), High Blood Pressure (DC), Alcohol Abuse and Alcoholism (DC), Cardiomyopathy (DC), Heart Failure Exercise Guide, Breathing Exercises
--- NOTE | 2017-10-22 19:57 | PCM.HF ---
Heart Failure Core Measure - Heart Failure Left Ventricular Function to be assessed after discharge: Yes DUNIA Inhibitor Prescribed: No Contraindication/Reason for not providing: ARBS Beta-Thee Prescribed: Carvedilol Contraindication/Reason for not providing: Had as inpatient medication but patient left ama Angiotensin II Receptor Thee Prescribed: No Contraindication/Reason for not providing: Had as inpatient medication but patient left ama AnticoagulationTherapy for Atrial Fibrillation/Atrialflutter: No Contraindication/Reason for not providing: No history of A. fin Aldosterone Antagonist Prescribed: No Contraindication/Reason for not providing: ARBS Hydralazine Nitrate Prescribed: No Contraindication/Reason for not providing: lEFT AMA
--- NOTE | 2017-10-23 07:27 | CARD ---
APPROVED REPORT EXAM: Two-dimensional and M-mode echocardiogram with Doppler and color Doppler. Other Information Quality : GoodRhythm : INDICATION Cardiac Disease: CAD Congestive Heart Failure substance abuse RISK FACTORS Hypertension 2D DIMENSIONS IVSd1.4 (0.7-1.1cm)LVDd5.6 (3.9-5.9cm) PWd1.4 (0.7-1.1cm)LVDs4.9 (2.5-4.0cm) FS (%) 13.5 %LVEF (%)28.5 (>50%) M-Mode DIMENSIONS RVDd3.20 (2.1-3.2cm)Left Atrium (MM)4.92 (2.5-4.0cm) IVSd1.33 (0.7-1.1cm)Aortic Root3.32 (2.2-3.7cm) LVDd5.74 (4.0-5.6cm)Aortic Cusp Exc.2.05 (1.5-2.0cm) PWd1.68 (0.7-1.1cm)FS (%) 15 % LVDs4.88 (2.0-3.8cm)LVEF (%)31 (>50%) Mitral Valve MV E Lgwmaytn05.2cm/sMV A Cwewthoz20.6cm/sE/A ratio1.1 TDI E/Lateral E'0.0E/Medial E'0.0 Tricuspid Valve TR Peak Sgzjxkjv125rp/sTR Peak [id number] <Conclusion> Left ventricle: thickness: normal; size: mild dilatation; moderate to severe diffuse systolic dysfunction; overall ejection fraction: 35%: diastolic filling pressures: normal Mitral valve: annulus: normal: leaflets: normal: excursion: normal; no significant trans-mitral gradient: no significant incompetence: left atrium: normal Aortic valve: leaflets: normal: excursion: normal; no significant trans-aortic gradient: No significant incompetence: aortic root: normal Right sided Structures: Pulmonary valve: normal; no significant incompetence; Tricuspid valve: normal; no significant incompetence: Intra-cardiac hemodynamics: pulmonary systolic pressures: normal; central venous pressures: normal No pericardial effusion
== END 2017-10-22 11:50 | disposition left against medical advice (07) | DRG 894 ==
LOC: C.ER 23:59 → C.7D 10-19 07:41 → C.5S 10-19 16:56
PROVIDERS: ADMIT Internal Medicine; ATTEND Internal Medicine
PROC: HZ2ZZZZ Detoxification Services for Substance Abuse Treatment (ICD-10-PCS; principal; 2017-10-19)
PROC: HZ56ZZZ Individual Psychotherapy for Substance Abuse Treatment, Psychoeducation (ICD-10-PCS; 2017-10-19)
PROC: HZ46ZZZ Group Counseling for Substance Abuse Treatment, Psychoeducation (ICD-10-PCS; 2017-10-19)
DX: F10.230 Alcohol dependence with withdrawal, uncomplicated (principal); I13.0 Hypertensive heart and chronic kidney disease with heart failure and stage 1 through stage 4 chronic kidney disease, or unspecified chronic kidney disease; F14.20 Cocaine dependence, uncomplicated; I50.22 Chronic systolic (congestive) heart failure; N17.9 Acute kidney failure, unspecified; B18.1 Chronic viral hepatitis B without delta-agent; I42.0 Dilated cardiomyopathy; R79.89 Other specified abnormal findings of blood chemistry; N18.3 Chronic kidney disease, stage 3 (moderate); I25.10 Atherosclerotic heart disease of native coronary artery without angina pectoris; J44.9 Chronic obstructive pulmonary disease, unspecified; E78.00 Pure hypercholesterolemia, unspecified; M19.90 Unspecified osteoarthritis, unspecified site; F17.210 Nicotine dependence, cigarettes, uncomplicated; Z91.19 Patient's noncompliance with other medical treatment and regimen; Z79.899 Other long term (current) drug therapy

== ENCOUNTER 2018-05-27 16:35 | Inpatient (IN) | payer OTHER ==
[2018-05-27] MEDS ORDERED: Midazolam 2 MG/2 ML VIAL ONE ×2 (17:08→17:13)
[2018-05-27] MEDS ORDERED: Labetalol 5mg/ml (4ml) ONE (17:22)
[2018-05-27] MEDS ORDERED: Iodixanol 320 MG/ML 100 ML BOTTLE IV ONE (17:25)
[2018-05-27] MEDS ORDERED: Verapamil 2 ML ONE (17:37)
[2018-05-27] MEDS ORDERED: Lidocaine 2% MPF (5 ml) Inj ONE (17:38)
[2018-05-27] MEDS ORDERED: Iodixanol 320 MG/ML 200 ML BOTTLE IV ONE (17:38)
[2018-05-27 17:46] VITALS: BMI 23.7
--- NOTE | 2018-05-27 18:44 | CP.PCM.HP ---
<Vidya Mario - Last Filed: 05/27/18 19:12> History of Present Illness - History of Present Illness History of Present Illness: Vidya Mario PGY1 H&P for Dr. Love CC: chest pain HPI: 52 yo M with PMHx of Systolic CHF, HTN, COPD, CKD, alcohol and cocaine abuse presents to ED w/ chest pain after using cocaine. He reports 9/10 chest pain this afternoon after smoking 10 bags of cocaine. He reported a sharp pain with palpitations, sweating, and nausea, he denied dizziness or radiation of the pain. The pain has now resolved. He denies shortness of breath, vomiting, headache, abdominal pain, diarrhea, dysuria. PMH: Systolic CHF, HTN, COPD, CKD, alcohol and cocaine user SxHx: L foot surgery, 5y ago FHx: father , DM2, mother , breast cancer SHx: 2 1/2pack/day tobacco, ETOH and Cocaine abuse Allergies: NKDA PMD: none Present on Admission - Present on Admission Any Indicators Present on Admission: No Review of Systems - Review of Systems Review of Systems: as per HPI Past Patient History - Infectious Disease Hx of Infectious Diseases: None - Past Medical History & Family History Past Medical History?: Yes - Past Social History Smoking Status: Light Smoker < 10 Cigarettes Daily - CARDIAC Hx Atrial Fibrillation: No Hx Cardia Arrhythmia: No Hx Congestive Heart Failure: Yes Hx Hypercholesterolemia: Yes Hx Hypertension: Yes Hx Mitral Valve Prolapse: No Hx Pacemaker: No Hx Peripheral Edema: Yes - PULMONARY Hx Asthma: No Hx Bronchitis: Yes Hx Chronic Obstructive Pulmonary Disease (COPD): Yes Hx Emphysema: No Hx Pneumonia: Yes Hx Pulmonary Embolism: No Hx Sleep Apnea: No - NEUROLOGICAL Hx Alzheimer's Disease: No Hx Dementia: No Hx Migraine: No Hx Multiple Sclerosis: No Hx Parkinson's Disease: No Hx Seizures: No Hx Transient Ischemic Attacks (TIA): No - HEENT Hx HEENT Problems: No - RENAL Hx Chronic Kidney Disease: Yes Hx Kidney Stones: No - ENDOCRINE/METABOLIC Hx Hyperthyroidism: No Hx Hypothyroidism: No - HEMATOLOGICAL/ONCOLOGICAL Hx Anemia: No Hx Human Immunodeficiency Virus (HIV): No Hx Sickle Cell Disease: No - INTEGUMENTARY Hx Dermatological Problems: No - MUSCULOSKELETAL/RHEUMATOLOGICAL Hx Arthritis: Yes Hx Fractures: Yes Hx Osteoporosis: No Hx Rheumatoid Arthritis: No - GASTROINTESTINAL Hx Crohn's Disease: No Hx Diverticulitis: No Hx Gall Bladder Disease: No Hx Gastritis: Yes Hx Pancreatitis: No - GENITOURINARY/GYNECOLOGICAL Hx Sexually Transmitted Disorders: No - PSYCHIATRIC Hx Anxiety: No Hx Bipolar Disorder: No Hx Depression: No Hx Paranoia: No Hx Post Traumatic Stress Disorder: No Hx Schizophrenia: No - SURGICAL HISTORY Hx Appendectomy: No Hx Carotid Endarterectomy: No Hx Cholecystectomy: No Hx Coronary Artery Bypass Graft: No Hx Coronary Stent: No Hx Tonsillectomy: No - ANESTHESIA Hx Anesthesia: Yes Hx Anesthesia Reactions: No Hx Malignant Hyperthermia: No Meds Allergies/Adverse Reactions: Allergies Allergy/AdvReac Type Severity Reaction Status Date / Time No Known Allergies Allergy Verified 05/27/18 16:01 Physical Exam - Constitutional Appears: Well, No Acute Distress - Head Exam Head Exam: ATRAUMATIC, NORMOCEPHALIC - Eye Exam Eye Exam: EOMI, Normal appearance, PERRL Pupil Exam: NORMAL ACCOMODATION - ENT Exam ENT Exam: Mucous Membranes Moist, Normal Exam - Neck Exam Neck exam: Positive for: Normal Inspection - Respiratory Exam Respiratory Exam: Clear to Auscultation Bilateral, NORMAL BREATHING PATTERN. absent: Rales, Rhonchi, Wheezes, Respiratory Distress - Cardiovascular Exam Cardiovascular Exam: Gallop, REGULAR RHYTHM, Rubs, +S1, +S2. absent: Systolic Murmur - GI/Abdominal Exam GI & Abdominal Exam: Normal Bowel Sounds, Soft. absent: Distended, Tenderness - Extremities Exam Extremities exam: Positive for: normal inspection. Negative for: pedal edema - Neurological Exam Neurological exam: Alert, CN II-XII Intact, Oriented x3 - Psychiatric Exam Psychiatric exam: Normal Affect, Normal Mood - Skin Skin Exam: Normal Color Assessment & Plan - Assessment and Plan (Free Text) Assessment: 52yo M PMHx COPD, systolic CHF, HTN, CKD, alcohol abuse and cocaine abuse presenting with chest pain after using cocaine, admitted to ICU after stent placement for 100% occlusion of RCA. Plan: STEMI - s/p stent placement for 100% occlusion of RCA - EKG in ED: acute STEMI, inferior infarct - EF 10-20% - pt admits to cocaine use prior to ED visit - f/u lipids - f/u UDS - f/u TSH, free T4 - f/u CXR - nitroglycerin drip @25 mcg/min - lasix @10 mg/hr - crestor 20mg PO HS - plavix 75mg PO daily starting tomorrow - ASA 325mg PO daily starting tomorrow - Cardio consulted, Dr. Oliveira CHF - I/Os - daily weights - f/u CXR - lasix @10 mg/hr COPD - duonebs PRN - spiriva 18mcg inhaled daily - breo elipta inhaled daily - f/u CXR h/o HTN - lopressor tartate 25mg PO BID h/o CKD - BUN/Cr 10/07.9 - Nephro consulted, Dr. Ramos- f/u recs Polysubstance abuse - etoh, tobacco, cocaine - f/u UDS - substance abuse cessation counseling PPX GI: protonix 40 IV dialy DVT: SCDs HHD Case reviewed with Dr. Love <Coleen Love V - Last Filed: 05/28/18 19:05> Results - Vital Signs Recent Vital Signs: Last Vital Signs Temp 98.0 F 05/28/18 16:00 Pulse 89 05/28/18 17:54 Resp 21 05/28/18 17:54 BP 114/79 05/28/18 18:02 Pulse Ox 97 05/28/18 17:04 - Labs Result Diagrams: 05/28/18 04:22 05/28/18 04:22 Labs: Laboratory Results - last 24 hr 05/28/18 05/28/18 05/28/18 04:22 04:22 04:22 WBC RBC Hgb Hct MCV MCH MCHC RDW Plt Count MPV Neut % (Auto) Lymph % (Auto) [place] % (Auto) Eos % (Auto) Baso % (Auto) Neut # (Auto) Lymph # (Auto) [place] # (Auto) Eos # (Auto) Baso # (Auto) Neutrophils % (Manual) Lymphocytes % (Manual) Reactive Lymphs % Monocytes % (Manual) Eosinophils % (Manual) Basophils % (Manual) Platelet Estimate RBC Morphology Sodium Potassium Chloride Carbon Dioxide Anion Gap BUN Creatinine Est GFR ( Amer) Est GFR (Non-Af Amer) Random Glucose Hemoglobin A1c 5.0 Calcium Phosphorus Magnesium Total Bilirubin AST ALT Alkaline Phosphatase Troponin I NT-Pro-B Natriuret Pep Total Protein Albumin Globulin Albumin/Globulin Ratio Triglycerides 52 Cholesterol 191 LDL Cholesterol Direct 71 HDL Cholesterol 133 H Free T4 0.86 TSH 3rd Generation 1.07 Urine Opiates Screen Urine Methadone Screen Ur Barbiturates Screen Ur Phencyclidine Scrn Ur Amphetamines Screen U Benzodiazepines Scrn U Oth Cocaine Metabols U Cannabinoids Screen 05/28/18 05/28/18 05/28/18 04:22 04:22 06:26 WBC 7.7 RBC 4.82 Hgb 14.7 Hct 42.8 MCV 88.9 D MCH 30.5 MCHC 34.3 RDW 13.5 Plt Count 160 MPV 9.6 Neut % (Auto) 76.1 H Lymph % (Auto) 8.4 L [place] % (Auto) 7.9 Eos % (Auto) 5.8 H Baso % (Auto) 1.8 Neut # (Auto) 5.9 Lymph # (Auto) 0.7 L [place] # (Auto) 0.6 Eos # (Auto) 0.5 Baso # (Auto) 0.1 Neutrophils % (Manual) 71 Lymphocytes % (Manual) 6 L Reactive Lymphs % 8 H Monocytes % (Manual) 9 Eosinophils % (Manual) 5 H Basophils % (Manual) 1 Platelet Estimate Normal RBC Morphology Normal Sodium 131 L Potassium 3.5 L Chloride 97 L Carbon Dioxide 23 Anion Gap 15 BUN 23 H Creatinine 1.8 H Est GFR ( Amer) 48 Est GFR (Non-Af Amer) 40 Random Glucose 110 Hemoglobin A1c Calcium 8.6 Phosphorus 4.3 Magnesium 1.7 Total Bilirubin 1.8 H AST 176 H D ALT 55 Alkaline Phosphatase 110 Troponin I 34.9000 H* NT-Pro-B Natriuret Pep 8370 H Total Protein 7.3 Albumin 4.1 Globulin 3.2 Albumin/Globulin Ratio 1.3 Triglycerides Cholesterol LDL Cholesterol Direct HDL Cholesterol Free T4 TSH 3rd Generation Urine Opiates Screen Negative Urine Methadone Screen Negative Ur Barbiturates Screen Negative Ur Phencyclidine Scrn Negative Ur Amphetamines Screen Negative U Benzodiazepines Scrn Positive U Oth Cocaine Metabols Positive H U Cannabinoids Screen Negative Attending/Attestation - Attestation I have personally seen and examined this patient.: Yes I have fully participated in the care of the patient.: Yes I have reviewed all pertinent clinical information: Yes Notes (Text): This is a late computer entry for May 27, 2018. Responded to code heart. 52-year-old male history including cocaine use, alcohol use, COPD, severe systolic CHF, history of noncompliance, history of homelessness, and recent renal insufficiency comes in from [place] for abnormalities noted in the inferior leads. Patient arrived to the [employer] [facility] at [facility]. Case discussed with taker off. Patient has a prior cardiac cath report normal indicated from March 13 with a prior echo from October of this year. Patient subsequently found to have an occlusion of the RCA. Patient had a stent placed. Patient to be observed in the critical care unit for further management and care. Patient placed on nitro drip per digital recruiter. Assessment and plan 1. STEMI Assessment/Plan * Code heart 05/28/18-->[place]; plavix 600mg PO X1, Heparin bolus X1, Nitrostat X1 * interventional cardiology (Dr. Oliveira) on board-->help appreciated * Cardiac cath 02/2017 * Echo 10/2017 * s/p stent placement for 100% occlusion of RCA; EF: 10-20%, elevated EDP * EKG in ED: acute STEMI, inferior infarct * Check a1c, lipid panel, TSH * nitroglycerin drip @25 mcg/min * lasix @10 mg/hr * crestor 20mg PO HS 2. Systolic CHF Assessment/Plan * History of noncompliance with [employer] * Aspirin 325mg PO daily * Crestor 20mg POqHS * Lopressor * Echo 10/2017 EF: 35 * Per cath: 10-20% * Fluid restriction * Intake and out 3. COPD, history of Assessment/Plan * duonebs PRN * spiriva 18mcg inhaled daily * breo elipta inhaled daily * f/u CXR 4. h/o HTN Assessment/Plan * lopressor tartate 25mg PO BID 5. h/o CKD Assessment/Plan * BUN/Cr 17/1.9 * Nephro consulted, Dr. Ramos- f/u recs 6. Polysubstance abuse Assessment/Plan * etoh, tobacco, cocaine * f/u UDS * substance abuse cessation counseling 7. PPX Assessment/Plan * GI: protonix 40 IV dialy * DVT: SCDs * HHD * In [place] given: plavix 600mg PO X1, Heparin bolus X1, Nitrostat X1
--- NOTE | 2018-05-27 18:47 | CP.PCM.CON ---
<Vidya Mario - Last Filed: 05/27/18 19:07> History of Present Illness - History of Present Illness History of Present Illness: Vidya Mario PGY1 Consult Note for Dr. Arana 52 yo male with PMHx of Systolic CHF, HTN, COPD, CKD, alcohol and cocaine abuse presents to ED w/ chest pain after using cocaine. PMH: Systolic CHF, HTN, COPD, CKD, alcohol and cocaine user SxHx: L foot surgery, 5y ago FHx: father , DM2, mother , breast cancer SHx: 2 1/2pack/day tobacco, ETOH and Cocaine abuse Allergies: NKDA PMD: none Review of Systems - Review of Systems Review of Systems: as per HPI Past Patient History - Infectious Disease Hx of Infectious Diseases: None - Past Medical History & Family History Past Medical History?: Yes - Past Social History Smoking Status: Light Smoker < 10 Cigarettes Daily - CARDIAC Hx Atrial Fibrillation: No Hx Cardia Arrhythmia: No Hx Congestive Heart Failure: Yes Hx Hypercholesterolemia: Yes Hx Hypertension: Yes Hx Mitral Valve Prolapse: No Hx Pacemaker: No Hx Peripheral Edema: Yes - PULMONARY Hx Asthma: No Hx Bronchitis: Yes Hx Chronic Obstructive Pulmonary Disease (COPD): Yes Hx Emphysema: No Hx Pneumonia: Yes Hx Pulmonary Embolism: No Hx Sleep Apnea: No - NEUROLOGICAL Hx Alzheimer's Disease: No Hx Dementia: No Hx Migraine: No Hx Multiple Sclerosis: No Hx Parkinson's Disease: No Hx Seizures: No Hx Transient Ischemic Attacks (TIA): No - HEENT Hx HEENT Problems: No - RENAL Hx Chronic Kidney Disease: Yes Hx Kidney Stones: No - ENDOCRINE/METABOLIC Hx Hyperthyroidism: No Hx Hypothyroidism: No - HEMATOLOGICAL/ONCOLOGICAL Hx Anemia: No Hx Human Immunodeficiency Virus (HIV): No Hx Sickle Cell Disease: No - INTEGUMENTARY Hx Dermatological Problems: No - MUSCULOSKELETAL/RHEUMATOLOGICAL Hx Arthritis: Yes Hx Fractures: Yes Hx Osteoporosis: No Hx Rheumatoid Arthritis: No - GASTROINTESTINAL Hx Crohn's Disease: No Hx Diverticulitis: No Hx Gall Bladder Disease: No Hx Gastritis: Yes Hx Pancreatitis: No - GENITOURINARY/GYNECOLOGICAL Hx Sexually Transmitted Disorders: No - PSYCHIATRIC Hx Anxiety: No Hx Bipolar Disorder: No Hx Depression: No Hx Paranoia: No Hx Post Traumatic Stress Disorder: No Hx Schizophrenia: No - SURGICAL HISTORY Hx Appendectomy: No Hx Carotid Endarterectomy: No Hx Cholecystectomy: No Hx Coronary Artery Bypass Graft: No Hx Coronary Stent: No Hx Tonsillectomy: No - ANESTHESIA Hx Anesthesia: Yes Hx Anesthesia Reactions: No Hx Malignant Hyperthermia: No Meds Allergies/Adverse Reactions: Allergies Allergy/AdvReac Type Severity Reaction Status Date / Time No Known Allergies Allergy Verified 05/27/18 16:01 - Medications Medications: Current Medications Albuterol/Ipratropium (Duoneb 3 Mg/0.5 Mg (3 Ml) Ud) 3 ml INH Q4H PRN PRN Reason: Shortness of Breath Furosemide 100 mg/ Dextrose 100 mls @ 10 mls/hr IVP .Q10H QUE; Protocol Nitroglycerin/Dextrose (Nitroglycerin 50 Mg/250 Ml D5w) 50 mg in 250 mls @ 7.5 mls/hr IV .Q24H QUE; Protocol Pantoprazole Sodium (Protonix Inj) 40 mg IVP DAILY QUE Physical Exam - Constitutional Appears: Well, No Acute Distress - Head Exam Head Exam: ATRAUMATIC, NORMOCEPHALIC - Eye Exam Eye Exam: EOMI, Normal appearance, PERRL Pupil Exam: NORMAL ACCOMODATION - ENT Exam ENT Exam: Mucous Membranes Moist, Normal Exam - Neck Exam Neck exam: Positive for: Normal Inspection - Respiratory Exam Respiratory Exam: Clear to Auscultation Bilateral, NORMAL BREATHING PATTERN. absent: Rales, Rhonchi, Wheezes, Respiratory Distress - Cardiovascular Exam Cardiovascular Exam: REGULAR RHYTHM, +S1, +S2. absent: Gallop, Rubs, Systolic Murmur - GI/Abdominal Exam GI & Abdominal Exam: Normal Bowel Sounds, Soft. absent: Distended, Tenderness - Extremities Exam Extremities exam: Positive for: normal inspection. Negative for: pedal edema - Back Exam Back exam: NORMAL INSPECTION - Neurological Exam Neurological exam: Alert, CN II-XII Intact, Oriented x3 - Psychiatric Exam Psychiatric exam: Normal Affect, Normal Mood - Skin Skin Exam: Dry Assessment & Plan - Assessment and Plan (Free Text) Assessment: 52yo M PMHx COPD, systolic CHF, HTN, CKD, alcohol abuse and cocaine abuse presenting with chest pain after using cocaine, admitted to ICU after stent placement for 100% occlusion of RCA. Plan: Neuro - AAOx3 - no focal deficits Cardio - s/p stent placement for 100% occlusion of RCA - EF 10-20% - pt admits to cocaine use prior to ED visit - h/o CHF, HTN - f/u lipids - f/u UDS - f/u TSH, free T4 - f/u CXR - nitroglycerin drip @25 mcg/min - lasix @10 mg/hr - crestor 20mg PO HS - plavix 75mg PO daily starting tomorrow - ASA 325mg PO daily starting tomorrow - Cardio consulted, Dr. Tee Carlisle - duonebs PRN - spiriva 18mcg inhaled daily - breo elipta inhaled daily - f/u CXR GI - no active issues Renal - h/o CKD - Nephro consulted, Dr. Ramos- f/u recs Heme - hold anticoagulation until tomorrow - plavix 75mg PO daily starting tomorrow - ASA 325mg PO daily starting tomorrow ID - no active issues Psych - polysubstance abuse: cocaine, etoh, tobacco - f/u UDS - substance abuse cessation counseling PPx GI: protonix 40 IV daily DVT: SCDs HHD Pt seen and case reviewed with Dr. Arana <Russ Arana S - Last Filed: 05/28/18 17:58> Meds - Medications Medications: Current Medications Albuterol/Ipratropium (Duoneb 3 Mg/0.5 Mg (3 Ml) Ud) 3 ml INH Q4H PRN PRN Reason: Shortness of Breath Last Admin: 05/27/18 19:44 Dose: 3 ml Aspirin (Aspirin) 325 mg PO DAILY [facility] Last Admin: 05/28/18 09:57 Dose: 325 mg Clopidogrel Bisulfate (Plavix) 75 mg PO DAILY [facility] Last Admin: 05/28/18 09:57 Dose: 75 mg Fluticasone/Vilanterol (Breo Ellipta 100-25 Mcg Inh) 1 puff INH RQD [facility] Last Admin: 05/28/18 10:10 Dose: Not Given Folic Acid (Folic Acid) 1 mg PO DAILY [facility] Last Admin: 05/28/18 10:04 Dose: 1 mg Furosemide (Lasix) 40 mg PO BID [facility] Last Admin: 05/28/18 17:40 Dose: 40 mg Heparin Sodium (Porcine) (Heparin) 5,000 units SC Q8 [facility] Last Admin: 05/28/18 15:08 Dose: 5,000 units Lorazepam (Ativan) 1 mg IVP Q4H PRN PRN Reason: Anxiety Metoprolol Tartrate (Lopressor) 50 mg PO BID [facility] Last Admin: 05/28/18 17:41 Dose: 50 mg Pantoprazole Sodium (Protonix Ec Tab) 40 mg PO DAILY [facility] Last Admin: 05/28/18 10:04 Dose: 40 mg Rosuvastatin Calcium (Crestor) 20 mg PO HS [facility] Last Admin: 05/27/18 22:30 Dose: Not Given Thiamine HCl (Vitamin B1 Tab) 100 mg PO DAILY [facility] Last Admin: 05/28/18 10:03 Dose: 100 mg Tiotropium [place] (Spiriva) 18 mcg INH RQ24 [facility] Last Admin: 05/28/18 10:11 Dose: Not Given Results - Vital Signs Recent Vital Signs: Last Vital Signs Temp 97.7 F 05/28/18 13:00 Pulse 88 05/28/18 17:04 Resp 20 05/28/18 17:04 BP 140/98 H 05/28/18 17:40 Pulse Ox 97 05/28/18 17:04 - Labs Result Diagrams: 05/28/18 04:22 05/28/18 04:22 Labs: Laboratory Results - last 24 hr 05/28/18 05/28/18 05/28/18 04:22 04:22 04:22 WBC RBC Hgb Hct MCV MCH MCHC RDW Plt Count MPV Neut % (Auto) Lymph % (Auto) [place] % (Auto) Eos % (Auto) Baso % (Auto) Neut # (Auto) Lymph # (Auto) [place] # (Auto) Eos # (Auto) Baso # (Auto) Neutrophils % (Manual) Lymphocytes % (Manual) Reactive Lymphs % Monocytes % (Manual) Eosinophils % (Manual) Basophils % (Manual) Platelet Estimate RBC Morphology Sodium Potassium Chloride Carbon Dioxide Anion Gap BUN Creatinine Est GFR ( Amer) Est GFR (Non-Af Amer) Random Glucose Hemoglobin A1c 5.0 Calcium Phosphorus Magnesium Total Bilirubin AST ALT Alkaline Phosphatase Troponin I NT-Pro-B Natriuret Pep Total Protein Albumin Globulin Albumin/Globulin Ratio Triglycerides 52 Cholesterol 191 LDL Cholesterol Direct 71 HDL Cholesterol 133 H Free T4 0.86 TSH 3rd Generation 1.07 Urine Opiates Screen Urine Methadone Screen Ur Barbiturates Screen Ur Phencyclidine Scrn Ur Amphetamines Screen U Benzodiazepines Scrn U Oth Cocaine Metabols U Cannabinoids Screen 05/28/18 05/28/18 05/28/18 04:22 04:22 06:26 WBC 7.7 RBC 4.82 Hgb 14.7 Hct 42.8 MCV 88.9 D MCH 30.5 MCHC 34.3 RDW 13.5 Plt Count 160 MPV 9.6 Neut % (Auto) 76.1 H Lymph % (Auto) 8.4 L [place] % (Auto) 7.9 Eos % (Auto) 5.8 H Baso % (Auto) 1.8 Neut # (Auto) 5.9 Lymph # (Auto) 0.7 L [place] # (Auto) 0.6 Eos # (Auto) 0.5 Baso # (Auto) 0.1 Neutrophils % (Manual) 71 Lymphocytes % (Manual) 6 L Reactive Lymphs % 8 H Monocytes % (Manual) 9 Eosinophils % (Manual) 5 H Basophils % (Manual) 1 Platelet Estimate Normal RBC Morphology Normal Sodium 131 L Potassium 3.5 L Chloride 97 L Carbon Dioxide 23 Anion Gap 15 BUN 23 H Creatinine 1.8 H Est GFR ( Amer) 48 Est GFR (Non-Af Amer) 40 Random Glucose 110 Hemoglobin A1c Calcium 8.6 Phosphorus 4.3 Magnesium 1.7 Total Bilirubin 1.8 H AST 176 H D ALT 55 Alkaline Phosphatase 110 Troponin I 34.9000 H* NT-Pro-B Natriuret Pep 8370 H Total Protein 7.3 Albumin 4.1 Globulin 3.2 Albumin/Globulin Ratio 1.3 Triglycerides Cholesterol LDL Cholesterol Direct HDL Cholesterol Free T4 TSH 3rd Generation Urine Opiates Screen Negative Urine Methadone Screen Negative Ur Barbiturates Screen Negative Ur Phencyclidine Scrn Negative Ur Amphetamines Screen Negative U Benzodiazepines Scrn Positive U Oth Cocaine Metabols Positive H U Cannabinoids Screen Negative Attending/Attestation - Attestation I have personally seen and examined this patient.: Yes I have fully participated in the care of the patient.: Yes I have reviewed all pertinent clinical information: Yes Notes (Text): Patient seen and examined in the intensive care unit. 52-year-old malewith history of alcohol and substance abuse presented to emergency room the chest pain, status post "code heart cardiac cath and RCA stent placement. Aspirin and Plavix Lasix drip and IV nitrates Continue ICU observation
[2018-05-27] MEDS: Nitroglycerin 50mg in D5W 50 MG/250 ML BOTTLE IV SCH (19:20)
[2018-05-27] MEDS: Furosemide 100 MG in Dextrose 5% In Water 90 ML IVP SCH (19:20)
[2018-05-27] MEDS: Albuterol-Ipratrop 3 mg / 0.5 (3 ml) UD INH PRN (19:44)
[2018-05-28] MEDS: Nitroglycerin 50mg in D5W 50 MG/250 ML BOTTLE IV SCH ×2 (03:30→10:17)
[2018-05-28 04:29] LABS: BASO # 0.1 K/uL (0.0-0.2); BASO % 1.8 % (0.0-2.0); EOS # 0.5 K/uL (0.0-0.7); EOS % 5.8 % (0.0-4.0); HEMOGLOBIN 14.7 g/dL (12.0-18.0); LYMPH # 0.7 K/uL (1.0-4.3); LYMPH % 8.4 % (20.0-40.0); MEAN CELL VOLUME 88.9 fL (80.0-94.0); MEAN CORPUSCULAR HEMOGLOBIN 30.5 pg (27.0-31.0); MEAN CORPUSCULAR HGB CONC 34.3 g/dL (33.0-37.0); MEAN PLATELET VOLUME 9.6 fL (7.2-11.7); MONO # 0.6 K/uL (0.0-0.8); MONO % 7.9 % (0.0-10.0); NEUT # 5.9 K/uL (1.8-7.0); NEUT % 76.1 % (50.0-75.0); NRBC % 0.1 % (0.0-2.0); PLATELET COUNT 160 K/uL (130-400); RBC 4.82 Mil/uL (4.40-5.90); RED CELL DISTRIBUTION WIDTH 13.5 % (11.5-14.5); WHITE BLOOD COUNT 7.7 K/uL (4.8-10.8)
[2018-05-28] MEDS: Furosemide 100 MG in Dextrose 5% In Water 90 ML IVP SCH (04:32)
[2018-05-28 04:59] LABS: BASOPHIL 1 % (0-2); EOSINOPHIL 5 % (0-4); LYMPHOCYTE 6 % (20-40); MONOCYTE 9 % (0-10); NEUTROPHIL 71 % (50-75); PLATELET ESTIMATE NORMAL (NORMAL); REACTIVE LYMPHOCYTES 8 % (0-0); TOTAL CELLS COUNTED 100
[2018-05-28 05:35] LABS: ALBUMIN 4.1 g/dL (3.5-5.0); CALCIUM 8.6 mg/dl (8.6-10.4)
[2018-05-28 05:39] LABS: ALB/GLOB RATIO 1.3 (1.0-2.1)
[2018-05-28] MEDS ORDERED: Potassium Chloride 20 mEq ER Tab PO ONE (06:29)
[2018-05-28 07:01] LABS: BARBITURATES, UR NEGATIVE (NEGATIVE); OPIATES, UR NEGATIVE (NEGATIVE); PHENCYCLIDINE, UR NEGATIVE (NEGATIVE)
[2018-05-28 07:32] LABS: BENZODIAZEPINES, UR POSITIVE (NEGATIVE)
--- NOTE | 2018-05-28 08:01 | CARDCATH ---
PROCEDURE DATE: 05/27/2018 INDICATIONS: The patient is a 52-year-old male with history of cocaine abuse and end-stage renal disease, who was transferred over from [place] [facility] for acute ST-elevation OK involving the inferior wall. 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 PROCEDURE PERFORMED: Emergent left heart catheterization with selective left and right coronary angiogram via right femoral approach, 6-[place] right femoral arterial access, percutaneous transluminal coronary angioplasty and stenting of distal RCA with use of 2.25 x 23 mm Xience drug-eluting stent, lesion reduction from 100% down to 0% FAITH-3, selective left and right coronary angiogram, selective left ventriculogram, Mynx closure device for hemostasis. 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 Left circumflex gives off medium-sized obtuse marginal branch and has a distal 80% stenosis. Left anterior descending artery runs anteriorly and gives off two small diagonal branches with [id number] obstructive disease. Proximal and distal LAD has 30% stenosis. Left circumflex, prox and mid 20% distal, 75% to 80% stenosis. RCA large-sized vessel gives off PLV which has a 65% stenosis. Distal PDA 100% occlusion. INTERVENTION PERFORMED: JR4 guide was used to engage the right coronary system. Whisper wire was used to negotiate through the distal occlusion and a balloon angioplasty subsequently a 2.25 x 23 mm Xience drug-eluting stent was deployed. It was post dilated with a 2.75 noncompliant balloon. Final angiogram then showed lesion reduction down to 0% FAITH-3 flow. IMPRESSION: Successful percutaneous transluminal coronary angioplasty and stenting of distal right coronary artery 100% occlusion, deployment of 2.75 x 23 Xience drug-eluting stent. Left ventricular ejection fraction 10% to 15%, EDP of 44 mmHg. Severe ischemic cardiomyopathy. RECOMMENDATIONS: The patient is to be kept in the ICU. Keep the patient on dual antiplatelet therapy and keep the patient on IV nitroglycerin and IV Lasix for severe acute decompensated failure with elevated filling pressures. Consider staged PCI of left circumflex and PLV branches in 48 hours depending on clinical course, because of titration of therapy for acute exacerbation of his heart failure most likely secondary to acute OK. Uri Oliveira MD cc: Coleen Love DO
--- NOTE | 2018-05-28 09:14 | RAD ---
Chest x-ray single frontal view HISTORY: Stent placement. COMPARISON: 10/19/2017 Findings: Moderate to severe venous congestion. Confluent consolidative changes in the right hilar region extending into the right suprahilar region. Linear atelectasis in the lateral aspect of the left midlung zone. Elevated right hemidiaphragm. Enlarged ectatic aorta. Cardiomegaly. Degenerative changes in the spine and shoulders. Impression: Moderate to severe venous congestion. Confluent consolidative changes in the right hilar region extending into the right suprahilar region. Linear atelectasis in the lateral aspect of the left midlung zone. Elevated right hemidiaphragm. Enlarged ectatic aorta. Cardiomegaly.
[2018-05-28] MEDS: Magnesium Sulfate 1 gm in D5W 1 GM/100 ML BAG IVPB SCH ×2 (10:04→10:40)
[2018-05-28] MEDS: Pantoprazole 40 mg EC Tab PO SCH (10:04)
[2018-05-28] MEDS: Fluticasone-Vilanterol 100/25mcg Diskus INH SCH (10:10)
[2018-05-28] MEDS: Tiotropium 18 mcg Cap For Inhalation INH SCH (10:11)
[2018-05-28] MEDS ORDERED: Potassium Chloride 20 mEq/15 ml LIQ UD PO SCH (10:15)
[2018-05-28] MEDS: Potassium Chloride 20 mEq/15 ml LIQ UD PO SCH ×2 (10:55→16:05)
--- NOTE | 2018-05-28 12:23 | CP.CCUPN ---
<Vidya Mario - Last Filed: 05/28/18 12:20> CCU Subjective - Physician Review Subjective (Free Text): 05/28/18 12:20 Vidya Mario PGY1 Progress Note for Dr. Arana Pt was examined at bedside this morning. He denies any shortness of breath, chest pain, abdominal pain, nausea, vomiting, diarrhea, dysuria, dizziness. He has no complaints at this time. CCU Objective - Vital Signs / Intake & Output Vital Signs (Last 4 hours): Vital Signs Pulse BP 05/28/18 10:17 90 124/67 05/28/18 10:03 124/67 Intake and Output (Last 8hrs): Intake & Output 05/27/18 05/28/18 05/28/18 22:59 06:59 14:59 Intake Total 1219.70 668.3 291.5 Output Total 1100 800 0 Balance 119.70 -131.7 291.5 Weight 170 lb 186 lb 1.122 oz Intake: IV 33.70 216.3 250 Intake, IV Amount 106.0 332.0 41.5 Left Hand 30 10 Right Antecubital 76.0 252.0 31.5 Right Forearm 70 10 Oral 1080 120 0 Output: Urine 1100 800 0 Urine, Voided 1100 800 0 - Physical Exam Head: Positive for: Atraumatic, Normocephalic Pupils: Positive for: PERRL Extroacular Muscles: Positive for: EOMI Conjunctiva: Positive for: Normal Mouth: Positive for: Moist Mucous Membranes Neck: Positive for: Normal Range of Motion Respiratory/Chest: Positive for: Decreased Breath Sounds. Negative for: Respiratory Distress, Wheezes, Retracting, Rhonchi Cardiovascular: Positive for: Regular Rate and Rhythm, Normal S1, S2. Negative for: Murmurs Abdomen: Positive for: Normal Bowel Sounds. Negative for: Tenderness, Distention, Peritoneal Signs Upper Extremity: Positive for: Normal Inspection. Negative for: Cyanosis, Edema Lower Extremity: Positive for: Normal Inspection. Negative for: Edema Neurological: Positive for: GCS=15, CN II-XII Intact, Speech Normal Skin: Positive for: Warm, Normal Color Psychiatric: Positive for: Alert, Oriented x 3 - Medications Active Medications: Active Medications Generic Name Dose Route Start Last Admin Trade Name Freq PRN Reason Stop Dose Admin Albuterol/Ipratropium 3 ml 05/27/18 18:37 05/27/18 19:44 Duoneb 3 Mg/0.5 Mg (3 Ml) Ud INH 3 ml Q4H PRN Administration Shortness of Breath Aspirin 325 mg 05/28/18 10:00 05/28/18 09:57 Aspirin PO 325 mg DAILY QUE Administration Clopidogrel Bisulfate 75 mg 05/28/18 10:00 05/28/18 09:57 Plavix PO 75 mg DAILY QUE Administration Fluticasone/Vilanterol 1 puff 05/28/18 08:00 05/28/18 10:10 Breo Ellipta 100-25 Mcg Inh INH Not Given RQD QUE Folic Acid 1 mg 05/28/18 10:00 05/28/18 10:04 Folic Acid PO 1 mg DAILY QUE Administration Furosemide 40 mg 05/28/18 10:00 05/28/18 10:03 Lasix PO 40 mg BID QUE Administration Heparin Sodium (Porcine) 5,000 units 05/28/18 14:00 Heparin SC Q8 [facility] Nitroglycerin/Dextrose 50 mg in 250 mls @ 7.5 mls/hr 05/27/18 18:00 05/28/18 10:17 Nitroglycerin 50 Mg/250 Ml D5w IV 100 mcg/min .Q24H QUE 30 mls/hr Administration Protocol 25 MCG/MIN Lorazepam 1 mg 05/28/18 09:26 Ativan IVP Q4H PRN Anxiety Metoprolol Tartrate 50 mg 05/28/18 10:00 05/28/18 10:04 Lopressor PO 50 mg BID QUE Administration Pantoprazole Sodium 40 mg 05/28/18 10:00 05/28/18 10:04 Protonix Ec Tab PO 40 mg DAILY QUE Administration Potassium Chloride 40 meq 05/28/18 11:00 05/28/18 10:55 Potassium Chloride Oral Soln PO 05/28/18 17:01 40 meq Q6H QUE Administration Rosuvastatin Calcium 20 mg 05/27/18 22:00 05/27/18 22:30 Crestor PO Not Given HS QUE Thiamine HCl 100 mg 05/28/18 10:00 05/28/18 10:03 Vitamin B1 Tab PO 100 mg DAILY QUE Administration Tiotropium [place] 18 mcg 05/28/18 08:00 05/28/18 10:11 Spiriva INH Not Given RQ24 QUE - Patient Studies Lab Studies: Lab Studies 05/28/18 05/28/18 05/28/18 Range/Units 06:26 04:22 04:22 WBC 7.7 (4.8-10.8) K/uL RBC 4.82 (4.40-5.90) Mil/uL Hgb 14.7 (12.0-18.0) g/dL Hct 42.8 (35.0-51.0) % MCV 88.9 D (80.0-94.0) fL MCH 30.5 (27.0-31.0) pg MCHC 34.3 (33.0-37.0) g/dL RDW 13.5 (11.5-14.5) % Plt Count 160 (130-400) K/uL MPV 9.6 (7.2-11.7) fL Neut % (Auto) 76.1 H (50.0-75.0) % Lymph % (Auto) 8.4 L (20.0-40.0) % C[place]shaw % (Auto) 7.9 (0.0-10.0) % Eos % (Auto) 5.8 H (0.0-4.0) % Baso % (Auto) 1.8 (0.0-2.0) % Neut # (Auto) 5.9 (1.8-7.0) K/uL Lymph # (Auto) 0.7 L (1.0-4.3) K/uL [place]shaw # (Auto) 0.6 (0.0-0.8) K/uL Eos # (Auto) 0.5 (0.0-0.7) K/uL Baso # (Auto) 0.1 (0.0-0.2) K/uL Neutrophils % (Manual) 71 (50-75) % Lymphocytes % (Manual) 6 L (20-40) % Reactive Lymphs % 8 H (0-0) % Monocytes % (Manual) 9 (0-10) % Eosinophils % (Manual) 5 H (0-4) % Basophils % (Manual) 1 (0-2) % Platelet Estimate Normal (NORMAL) RBC Morphology Normal Sodium 131 L (132-148) mmol/L Potassium 3.5 L (3.6-5.2) mmol/L Chloride 97 L (98-107) mmol/L Carbon Dioxide 23 (22-30) mmol/L Anion Gap 15 (10-20) BUN 23 H (9-20) mg/dL Creatinine 1.8 H (0.8-1.5) mg/dL Est GFR ( Amer) 48 Est GFR (Non-Af Amer) 40 Random Glucose 110 (75-110) mg/dL Hemoglobin A1c (4.2-6.5) % Calcium 8.6 (8.6-10.4) mg/dl Phosphorus 4.3 (2.5-4.5) mg/dL Magnesium 1.7 (1.6-2.3) mg/dL Total Bilirubin 1.8 H (0.2-1.3) mg/dL AST 176 H D (17-59) U/L ALT 55 (21-72) U/L Alkaline Phosphatase 110 (38-126) U/L Total Protein 7.3 (6.3-8.3) g/dL Albumin 4.1 (3.5-5.0) g/dL Globulin 3.2 (2.2-3.9) gm/dL Albumin/Globulin Ratio 1.3 (1.0-2.1) Triglycerides (0-149) mg/dL Cholesterol (0-199) mg/dL LDL Cholesterol Direct (0-129) mg/dL HDL Cholesterol (30-70) mg/dL Free T4 (0.78-2.19) ng/dL TSH 3rd Generation (0.46-4.68) mIU/L Urine Opiates Screen Negative (NEGATIVE) Urine Methadone Screen Negative (NEGATIVE) Ur Barbiturates Screen Negative (NEGATIVE) Ur Phencyclidine Scrn Negative (NEGATIVE) Ur Amphetamines Screen Negative (NEGATIVE) U Benzodiazepines Scrn Positive (NEGATIVE) U Oth Cocaine Metabols Positive H (NEGATIVE) U Cannabinoids Screen Negative (NEGATIVE) 05/28/18 05/28/18 05/28/18 Range/Units 04:22 04:22 04:22 WBC (4.8-10.8) K/uL RBC (4.40-5.90) Mil/uL Hgb (12.0-18.0) g/dL Hct (35.0-51.0) % MCV (80.0-94.0) fL MCH (27.0-31.0) pg MCHC (33.0-37.0) g/dL RDW (11.5-14.5) % Plt Count (130-400) K/uL MPV (7.2-11.7) fL Neut % (Auto) (50.0-75.0) % Lymph % (Auto) (20.0-40.0) % Crenshaw % (Auto) (0.0-10.0) % Eos % (Auto) (0.0-4.0) % Baso % (Auto) (0.0-2.0) % Neut # (Auto) (1.8-7.0) K/uL Lymph # (Auto) (1.0-4.3) K/uL C[place]shaw # (Auto) (0.0-0.8) K/uL Eos # (Auto) (0.0-0.7) K/uL Baso # (Auto) (0.0-0.2) K/uL Neutrophils % (Manual) (50-75) % Lymphocytes % (Manual) (20-40) % Reactive Lymphs % (0-0) % Monocytes % (Manual) (0-10) % Eosinophils % (Manual) (0-4) % Basophils % (Manual) (0-2) % Platelet Estimate (NORMAL) RBC Morphology Sodium (132-148) mmol/L Potassium (3.6-5.2) mmol/L Chloride (98-107) mmol/L Carbon Dioxide (22-30) mmol/L Anion Gap (10-20) BUN (9-20) mg/dL Creatinine (0.8-1.5) mg/dL Est GFR ( Amer) Est GFR (Non-Af Amer) Random Glucose (75-110) mg/dL Hemoglobin A1c 5.0 (4.2-6.5) % Calcium (8.6-10.4) mg/dl Phosphorus (2.5-4.5) mg/dL Magnesium (1.6-2.3) mg/dL Total Bilirubin (0.2-1.3) mg/dL AST (17-59) U/L ALT (21-72) U/L Alkaline Phosphatase (38-126) U/L Total Protein (6.3-8.3) g/dL Albumin (3.5-5.0) g/dL Globulin (2.2-3.9) gm/dL Albumin/Globulin Ratio (1.0-2.1) Triglycerides 52 (0-149) mg/dL Cholesterol 191 (0-199) mg/dL LDL Cholesterol Direct 71 (0-129) mg/dL HDL Cholesterol 133 H (30-70) mg/dL Free T4 0.86 (0.78-2.19) ng/dL TSH 3rd Generation 1.07 (0.46-4.68) mIU/L Urine Opiates Screen (NEGATIVE) Urine Methadone Screen (NEGATIVE) Ur Barbiturates Screen (NEGATIVE) Ur Phencyclidine Scrn (NEGATIVE) Ur Amphetamines Screen (NEGATIVE) U Benzodiazepines Scrn (NEGATIVE) U Oth Cocaine Metabols (NEGATIVE) U Cannabinoids Screen (NEGATIVE) Laboratory Results - last 24 hr 05/28/18 05/28/18 05/28/18 04:22 04:22 04:22 WBC RBC Hgb Hct MCV MCH MCHC RDW Plt Count MPV Neut % (Auto) Lymph % (Auto) [place] % (Auto) Eos % (Auto) Baso % (Auto) Neut # (Auto) Lymph # (Auto) [place] # (Auto) Eos # (Auto) Baso # (Auto) Neutrophils % (Manual) Lymphocytes % (Manual) Reactive Lymphs % Monocytes % (Manual) Eosinophils % (Manual) Basophils % (Manual) Platelet Estimate RBC Morphology Sodium Potassium Chloride Carbon Dioxide Anion Gap BUN Creatinine Est GFR ( Amer) Est GFR (Non-Af Amer) Random Glucose Hemoglobin A1c 5.0 Calcium Phosphorus Magnesium Total Bilirubin AST ALT Alkaline Phosphatase Total Protein Albumin Globulin Albumin/Globulin Ratio Triglycerides 52 Cholesterol 191 LDL Cholesterol Direct 71 HDL Cholesterol 133 H Free T4 0.86 TSH 3rd Generation 1.07 Urine Opiates Screen Urine Methadone Screen Ur Barbiturates Screen Ur Phencyclidine Scrn Ur Amphetamines Screen U Benzodiazepines Scrn U Oth Cocaine Metabols U Cannabinoids Screen 05/28/18 05/28/18 05/28/18 04:22 04:22 06:26 WBC 7.7 RBC 4.82 Hgb 14.7 Hct 42.8 MCV 88.9 D MCH 30.5 MCHC 34.3 RDW 13.5 Plt Count 160 MPV 9.6 Neut % (Auto) 76.1 H Lymph % (Auto) 8.4 L Crenshaw % (Auto) 7.9 Eos % (Auto) 5.8 H Baso % (Auto) 1.8 Neut # (Auto) 5.9 Lymph # (Auto) 0.7 L [place] # (Auto) 0.6 Eos # (Auto) 0.5 Baso # (Auto) 0.1 Neutrophils % (Manual) 71 Lymphocytes % (Manual) 6 L Reactive Lymphs % 8 H Monocytes % (Manual) 9 Eosinophils % (Manual) 5 H Basophils % (Manual) 1 Platelet Estimate Normal RBC Morphology Normal Sodium 131 L Potassium 3.5 L Chloride 97 L Carbon Dioxide 23 Anion Gap 15 BUN 23 H Creatinine 1.8 H Est GFR ( Amer) 48 Est GFR (Non-Af Amer) 40 Random Glucose 110 Hemoglobin A1c Calcium 8.6 Phosphorus 4.3 Magnesium 1.7 Total Bilirubin 1.8 H AST 176 H D ALT 55 Alkaline Phosphatase 110 Total Protein 7.3 Albumin 4.1 Globulin 3.2 Albumin/Globulin Ratio 1.3 Triglycerides Cholesterol LDL Cholesterol Direct HDL Cholesterol Free T4 TSH 3rd Generation Urine Opiates Screen Negative Urine Methadone Screen Negative Ur Barbiturates Screen Negative Ur Phencyclidine Scrn Negative Ur Amphetamines Screen Negative U Benzodiazepines Scrn Positive U Oth Cocaine Metabols Positive H U Cannabinoids Screen Negative Review of Systems - Review of Systems Review of Systems: as per [facility] Critical Care Progress Note - Nutrition Nutrition: Nutrition Category Date Time Status Heart Healthy Diet [DIET] Diets 05/27/18 Dinner Active Assessment/Plan - Assessment and Plan (Free Text) Assessment: 52yo M PMHx COPD, systolic CHF, HTN, CKD, alcohol abuse and cocaine abuse pres enting with chest pain after using cocaine, admitted to ICU after stent placement for 100% occlusion of RCA. Pt for additional stent placement on 05/30/18. Plan: Neuro - AAOx3 - no focal deficits - CIWA protocol - ativan 1mg PO q4h PRN - Thiamine/Folate/Multivitamin Cardio - s/p stent placement for 100% occlusion of RCA - EF 10-20% - pt admits to cocaine use prior to ED visit - h/o CHF, HTN - lipids: TG LDL HDL (high) - UDS positive for cocaine - CXR: moderate to severe venous congestion, consolidations in R hilar region, linear atelectasis in lateral L mid lung. cardiomegaly, ectatic aorta - f/u pro BNP, ROMIs - f/u ECHO - nitroglycerin drip @25 mcg/min - d/c lasix drip - lopressor 50mg PO BID - lasix 40mg PO BID - crestor 20mg PO HS - plavix 75mg PO daily - ASA 325mg PO daily - Cardio consulted, Dr. Oliveira: for additional stent 05/30/18 Pulm - f/u pro BNP - duonebs PRN - spiriva 18mcg inhaled daily - breo elipta inhaled daily - CXR: moderate to severe venous congestion, consolidations in R hilar region, linear atelectasis in lateral L mid lung. cardiomegaly, ectatic aorta - lasix 40 PO BID GI - no active issues Renal - h/o CKD - BUN/Cr 14/07.8 - Nephro consulted, Dr. Ramos- f/u recs Heme - heparin 5000u SC q8h - plavix 75mg PO daily starting tomorrow - ASA 325mg PO daily starting tomorrow ID - no active issues Psych - polysubstance abuse: cocaine, etoh, tobacco - UDS positive cocaine - substance abuse cessation counseling - [facility] protocol - ativan 1mg PO q4h PRN - Thiamine/Folate/Multivitamin PPx GI: protonix 40 PO DVT: SCDs HHD Pt seen and case reviewed with Dr. Arana <Russ Arana S - Last Filed: 05/28/18 17:53> CCU Objective - Vital Signs / Intake & Output Vital Signs (Last 4 hours): Vital Signs Pulse Resp BP Pulse Ox 05/28/18 17:40 140/98 H 05/28/18 17:04 88 20 135/84 97 05/28/18 16:02 84 15 111/91 H 95 05/28/18 15:02 78 20 122/84 97 05/28/18 14:03 79 16 97/69 L 05/28/18 13:54 78 10 L 122/86 Intake and Output (Last 8hrs): Intake & Output 05/28/18 05/28/18 05/28/18 06:59 14:59 22:59 Intake Total 668.3 1204.5 200 Output Total 800 1550 300 Balance -131.7 -345.5 -100 Weight 186 lb 1.122 oz Intake: IV 216.3 340 Intake, IV Amount 332.0 414.5 Left Hand 10 Right Antecubital 252.0 184.5 Right Forearm 70 230 Oral 120 450 200 Output: Urine 800 1550 300 Urine, Voided 800 1550 300 Other: # Bowel Movements 1 1 - Medications Active Medications: Active Medications Generic Name Dose Route Start Last Admin Trade Name Freq PRN Reason Stop Dose Admin Albuterol/Ipratropium 3 ml 05/27/18 18:37 05/27/18 19:44 Duoneb 3 Mg/0.5 Mg (3 Ml) Ud INH 3 ml Q4H PRN Administration Shortness of Breath Aspirin 325 mg 05/28/18 10:00 05/28/18 09:57 Aspirin PO 325 mg DAILY QUE Administration Clopidogrel Bisulfate 75 mg 05/28/18 10:00 05/28/18 09:57 Plavix PO 75 mg DAILY QUE Administration Fluticasone/Vilanterol 1 puff 05/28/18 08:00 05/28/18 10:10 Breo Ellipta 100-25 Mcg Inh INH Not Given RQD QUE Folic Acid 1 mg 05/28/18 10:00 05/28/18 10:04 Folic Acid PO 1 mg DAILY QUE Administration Furosemide 40 mg 05/28/18 10:00 05/28/18 17:40 Lasix PO 40 mg BID QUE Administration Heparin Sodium (Porcine) 5,000 units 05/28/18 14:00 05/28/18 15:08 Heparin SC 5,000 units Q8 QUE Administration Lorazepam 1 mg 05/28/18 09:26 Ativan IVP Q4H PRN Anxiety Metoprolol Tartrate 50 mg 05/28/18 10:00 05/28/18 17:41 Lopressor PO 50 mg BID QUE Administration Pantoprazole Sodium 40 mg 05/28/18 10:00 05/28/18 10:04 Protonix Ec Tab PO 40 mg DAILY QUE Administration Rosuvastatin Calcium 20 mg 05/27/18 22:00 05/27/18 22:30 Crestor PO Not Given HS QUE Thiamine HCl 100 mg 05/28/18 10:00 05/28/18 10:03 Vitamin B1 Tab PO 100 mg DAILY QUE Administration Tiotropium [place] 18 mcg 05/28/18 08:00 05/28/18 10:11 Spiriva INH Not Given RQ24 QUE - Patient Studies Lab Studies: Lab Studies 05/28/18 05/28/18 05/28/18 Range/Units 06:26 04:22 04:22 WBC 7.7 (4.8-10.8) K/uL RBC 4.82 (4.40-5.90) Mil/uL Hgb 14.7 (12.0-18.0) g/dL Hct 42.8 (35.0-51.0) % MCV 88.9 D (80.0-94.0) fL MCH 30.5 (27.0-31.0) pg MCHC 34.3 (33.0-37.0) g/dL RDW 13.5 (11.5-14.5) % Plt Count 160 (130-400) K/uL MPV 9.6 (7.2-11.7) fL Neut % (Auto) 76.1 H (50.0-75.0) % Lymph % (Auto) 8.4 L (20.0-40.0) % [place]shaw % (Auto) 7.9 (0.0-10.0) % Eos % (Auto) 5.8 H (0.0-4.0) % Baso % (Auto) 1.8 (0.0-2.0) % Neut # (Auto) 5.9 (1.8-7.0) K/uL Lymph # (Auto) 0.7 L (1.0-4.3) K/uL [place] # (Auto) 0.6 (0.0-0.8) K/uL Eos # (Auto) 0.5 (0.0-0.7) K/uL Baso # (Auto) 0.1 (0.0-0.2) K/uL Neutrophils % (Manual) 71 (50-75) % Lymphocytes % (Manual) 6 L (20-40) % Reactive Lymphs % 8 H (0-0) % Monocytes % (Manual) 9 (0-10) % Eosinophils % (Manual) 5 H (0-4) % Basophils % (Manual) 1 (0-2) % Platelet Estimate Normal (NORMAL) RBC Morphology Normal Sodium 131 L (132-148) mmol/L Potassium 3.5 L (3.6-5.2) mmol/L Chloride 97 L (98-107) mmol/L Carbon Dioxide 23 (22-30) mmol/L Anion Gap 15 (10-20) BUN 23 H (9-20) mg/dL Creatinine 1.8 H (0.8-1.5) mg/dL Est GFR ( Amer) 48 Est GFR (Non-Af Amer) 40 Random Glucose 110 (75-110) mg/dL Hemoglobin A1c (4.2-6.5) % Calcium 8.6 (8.6-10.4) mg/dl Phosphorus 4.3 (2.5-4.5) mg/dL Magnesium 1.7 (1.6-2.3) mg/dL Total Bilirubin 1.8 H (0.2-1.3) mg/dL AST 176 H D (17-59) U/L ALT 55 (21-72) U/L Alkaline Phosphatase 110 (38-126) U/L Troponin I 34.9000 H* (0.00-0.120) ng/mL NT-Pro-B Natriuret Pep 8370 H (0-900) pg/mL Total Protein 7.3 (6.3-8.3) g/dL Albumin 4.1 (3.5-5.0) g/dL Globulin 3.2 (2.2-3.9) gm/dL Albumin/Globulin Ratio 1.3 (1.0-2.1) Triglycerides (0-149) mg/dL Cholesterol (0-199) mg/dL LDL Cholesterol Direct (0-129) mg/dL HDL Cholesterol (30-70) mg/dL Free T4 (0.78-2.19) ng/dL TSH 3rd Generation (0.46-4.68) mIU/L Urine Opiates Screen Negative (NEGATIVE) Urine Methadone Screen Negative (NEGATIVE) Ur Barbiturates Screen Negative (NEGATIVE) Ur Phencyclidine Scrn Negative (NEGATIVE) Ur Amphetamines Screen Negative (NEGATIVE) U Benzodiazepines Scrn Positive (NEGATIVE) U Oth Cocaine Metabols Positive H (NEGATIVE) U Cannabinoids Screen Negative (NEGATIVE) 05/28/18 05/28/18 05/28/18 Range/Units 04:22 04:22 04:22 WBC (4.8-10.8) K/uL RBC (4.40-5.90) Mil/uL Hgb (12.0-18.0) g/dL Hct (35.0-51.0) % MCV (80.0-94.0) fL MCH (27.0-31.0) pg MCHC (33.0-37.0) g/dL RDW (11.5-14.5) % Plt Count (130-400) K/uL MPV (7.2-11.7) fL Neut % (Auto) (50.0-75.0) % Lymph % (Auto) (20.0-40.0) % C[place]shaw % (Auto) (0.0-10.0) % Eos % (Auto) (0.0-4.0) % Baso % (Auto) (0.0-2.0) % Neut # (Auto) (1.8-7.0) K/uL Lymph # (Auto) (1.0-4.3) K/uL C[place]shaw # (Auto) (0.0-0.8) K/uL Eos # (Auto) (0.0-0.7) K/uL Baso # (Auto) (0.0-0.2) K/uL Neutrophils % (Manual) (50-75) % Lymphocytes % (Manual) (20-40) % Reactive Lymphs % (0-0) % Monocytes % (Manual) (0-10) % Eosinophils % (Manual) (0-4) % Basophils % (Manual) (0-2) % Platelet Estimate (NORMAL) RBC Morphology Sodium (132-148) mmol/L Potassium (3.6-5.2) mmol/L Chloride (98-107) mmol/L Carbon Dioxide (22-30) mmol/L Anion Gap (10-20) BUN (9-20) mg/dL Creatinine (0.8-1.5) mg/dL Est GFR ( Amer) Est GFR (Non-Af Amer) Random Glucose (75-110) mg/dL Hemoglobin A1c 5.0 (4.2-6.5) % Calcium (8.6-10.4) mg/dl Phosphorus (2.5-4.5) mg/dL Magnesium (1.6-2.3) mg/dL Total Bilirubin (0.2-1.3) mg/dL AST (17-59) U/L ALT (21-72) U/L Alkaline Phosphatase (38-126) U/L Troponin I (0.00-0.120) ng/mL NT-Pro-B Natriuret Pep (0-900) pg/mL Total Protein (6.3-8.3) g/dL Albumin (3.5-5.0) g/dL Globulin (2.2-3.9) gm/dL Albumin/Globulin Ratio (1.0-2.1) Triglycerides 52 (0-149) mg/dL Cholesterol 191 (0-199) mg/dL LDL Cholesterol Direct 71 (0-129) mg/dL HDL Cholesterol 133 H (30-70) mg/dL Free T4 0.86 (0.78-2.19) ng/dL TSH 3rd Generation 1.07 (0.46-4.68) mIU/L Urine Opiates Screen (NEGATIVE) Urine Methadone Screen (NEGATIVE) Ur Barbiturates Screen (NEGATIVE) Ur Phencyclidine Scrn (NEGATIVE) Ur Amphetamines Screen (NEGATIVE) U Benzodiazepines Scrn (NEGATIVE) U Oth Cocaine Metabols (NEGATIVE) U Cannabinoids Screen (NEGATIVE) Laboratory Results - last 24 hr 05/28/18 05/28/18 05/28/18 04:22 04:22 04:22 WBC RBC Hgb Hct MCV MCH MCHC RDW Plt Count MPV Neut % (Auto) Lymph % (Auto) [place] % (Auto) Eos % (Auto) Baso % (Auto) Neut # (Auto) Lymph # (Auto) [place] # (Auto) Eos # (Auto) Baso # (Auto) Neutrophils % (Manual) Lymphocytes % (Manual) Reactive Lymphs % Monocytes % (Manual) Eosinophils % (Manual) Basophils % (Manual) Platelet Estimate RBC Morphology Sodium Potassium Chloride Carbon Dioxide Anion Gap BUN Creatinine Est GFR ( Amer) Est GFR (Non-Af Amer) Random Glucose Hemoglobin A1c 5.0 Calcium Phosphorus Magnesium Total Bilirubin AST ALT Alkaline Phosphatase Troponin I NT-Pro-B Natriuret Pep Total Protein Albumin Globulin Albumin/Globulin Ratio Triglycerides 52 Cholesterol 191 LDL Cholesterol Direct 71 HDL Cholesterol 133 H Free T4 0.86 TSH 3rd Generation 1.07 Urine Opiates Screen Urine Methadone Screen Ur Barbiturates Screen Ur Phencyclidine Scrn Ur Amphetamines Screen U Benzodiazepines Scrn U Oth Cocaine Metabols U Cannabinoids Screen 05/28/18 05/28/18 05/28/18 04:22 04:22 06:26 WBC 7.7 RBC 4.82 Hgb 14.7 Hct 42.8 MCV 88.9 D MCH 30.5 MCHC 34.3 RDW 13.5 Plt Count 160 MPV 9.6 Neut % (Auto) 76.1 H Lymph % (Auto) 8.4 L [place]shaw % (Auto) 7.9 Eos % (Auto) 5.8 H Baso % (Auto) 1.8 Neut # (Auto) 5.9 Lymph # (Auto) 0.7 L [place] # (Auto) 0.6 Eos # (Auto) 0.5 Baso # (Auto) 0.1 Neutrophils % (Manual) 71 Lymphocytes % (Manual) 6 L Reactive Lymphs % 8 H Monocytes % (Manual) 9 Eosinophils % (Manual) 5 H Basophils % (Manual) 1 Platelet Estimate Normal RBC Morphology Normal Sodium 131 L Potassium 3.5 L Chloride 97 L Carbon Dioxide 23 Anion Gap 15 BUN 23 H Creatinine 1.8 H Est GFR ( Amer) 48 Est GFR (Non-Af Amer) 40 Random Glucose 110 Hemoglobin A1c Calcium 8.6 Phosphorus 4.3 Magnesium 1.7 Total Bilirubin 1.8 H AST 176 H D ALT 55 Alkaline Phosphatase 110 Troponin I 34.9000 H* NT-Pro-B Natriuret Pep 8370 H Total Protein 7.3 Albumin 4.1 Globulin 3.2 Albumin/Globulin Ratio 1.3 Triglycerides Cholesterol LDL Cholesterol Direct HDL Cholesterol Free T4 TSH 3rd Generation Urine Opiates Screen Negative Urine Methadone Screen Negative Ur Barbiturates Screen Negative Ur Phencyclidine Scrn Negative Ur Amphetamines Screen Negative U Benzodiazepines Scrn Positive U Oth Cocaine Metabols Positive H U Cannabinoids Screen Negative Critical Care Progress Note - Nutrition Nutrition: Nutrition Category Date Time Status Heart Healthy Diet [DIET] Diets 05/27/18 Dinner Active Attending/Attestation - Attestation I have personally seen and examined this patient.: Yes I have fully participated in the care of the patient.: Yes I have reviewed all pertinent clinical information: Yes Notes (Text): 05/28/18 17:52 Patient seen and examined in the intensive care unit. 52yo M PMHx COPD, systolic CHF, HTN, CKD, alcohol abuse and cocaine abuse presenting with chest pain after using cocaine, admitted to ICU after stent placement for 100% occlusion of RCA. Pt for additional stent placement on 05/30/18. Ativan as needed for agitation Continue anticoagulation Thiamine and folic acid Lasix by mouth Continue nitrates Increase beta blockers
--- NOTE | 2018-05-28 12:50 | CP.PCM.CON ---
History of Present Illness - History of Present Illness History of Present Illness: Stefan Aranda DO, PGY-1 Cardiology Consult Note for Dr. Oliveira Mr. Fine is a 52 year old male with PMH of HFrEF (last Echo 09/2017 EF of 28.5%), HTN, COPD, CKD, alcohol and cocaine abuse who presented to [facility] ED with 9/10, L-sided chest pain radiating to his left arm and jaw that had been worsening over the past 2 hours. He admitted to smoking 9 bags of cocaine prior to presentation. He also endorsed SOB, diaphoresis, nausea, and cough at the time of presentation but denied fever/chills, BURROUGHS, blurred vision, CP radiating to the back, or vomiting. While EKG did not meet full criteria for STEMI, ST changes in V2 and V3 were sufficiently concerning that code heart was called. He was transported to the laboratory animal caretaker at [facility]. 100% stenosis in RCA was identified and JAIR was successfully placed. After cath procedure, patient stated that his chest pain and SOB had improved significantly from admission. No PMD PMH: HFrEF, HTN, COPD, CKD, alcohol and cocaine abuse PSH: unknown L foot surgery 5 years ago FHx: father and mother both had DM2, mother had breast CA SocHx: admits to smoking 2.5 packs per day for about 20 years, admits to extensive alcohol use and cocaine abuse. Allergies: NKDA Review of Systems - Constitutional Constitutional: absent: Chills, Fever - EENT Eyes: absent: Blurred Vision, Change in Vision - Cardiovascular Cardiovascular: Chest Pain, Chest Pain at Rest, Diaphoresis, Dyspnea. absent: Edema, Irregular Heart Rhythm, Rapid Heart Rate - Respiratory Respiratory: Cough, Dyspnea - Gastrointestinal Gastrointestinal: Nausea. absent: Vomiting - Genitourinary Genitourinary: absent: Change in Urinary Stream, Difficulty Urinating - Neurological Neurological: absent: Loss of Vision, Tremor Past Patient History - Infectious Disease Hx of Infectious Diseases: None - Past Medical History & Family History Past Medical History?: Yes - Past Social History Smoking Status: Heavy Smoker > 10 Cigarettes Daily - CARDIAC Hx Atrial Fibrillation: No Hx Cardia Arrhythmia: No Hx Congestive Heart Failure: Yes Hx Hypercholesterolemia: Yes Hx Hypertension: Yes Hx Mitral Valve Prolapse: No Hx Pacemaker: No Hx Peripheral Edema: Yes - PULMONARY Hx Asthma: No Hx Bronchitis: Yes Hx Chronic Obstructive Pulmonary Disease (COPD): Yes Hx Emphysema: No Hx Pneumonia: Yes Hx Pulmonary Embolism: No Hx Sleep Apnea: No - NEUROLOGICAL Hx Alzheimer's Disease: No Hx Dementia: No Hx Migraine: No Hx Multiple Sclerosis: No Hx Parkinson's Disease: No Hx Seizures: No Hx Transient Ischemic Attacks (TIA): No - HEENT Hx HEENT Problems: No - RENAL Hx Chronic Kidney Disease: Yes Hx Kidney Stones: No - ENDOCRINE/METABOLIC Hx Hyperthyroidism: No Hx Hypothyroidism: No - HEMATOLOGICAL/ONCOLOGICAL Hx Anemia: No Hx Human Immunodeficiency Virus (HIV): No Hx Sickle Cell Disease: No - INTEGUMENTARY Hx Dermatological Problems: No - MUSCULOSKELETAL/RHEUMATOLOGICAL Hx Arthritis: Yes Hx Fractures: Yes Hx Osteoporosis: No Hx Rheumatoid Arthritis: No - GASTROINTESTINAL Hx Crohn's Disease: No Hx Diverticulitis: No Hx Gall Bladder Disease: No Hx Gastritis: Yes Hx Pancreatitis: No - GENITOURINARY/GYNECOLOGICAL Hx Sexually Transmitted Disorders: No - PSYCHIATRIC Hx Substance Use: Yes - SURGICAL HISTORY Hx Appendectomy: No Hx Carotid Endarterectomy: No Hx Cholecystectomy: No Hx Coronary Artery Bypass Graft: No Hx Coronary Stent: No Hx Tonsillectomy: No - ANESTHESIA Hx Anesthesia: Yes Hx Anesthesia Reactions: No Hx Malignant Hyperthermia: No Meds Allergies/Adverse Reactions: Allergies Allergy/AdvReac Type Severity Reaction Status Date / Time No Known Allergies Allergy Verified 05/27/18 16:01 - Medications Medications: Current Medications Albuterol/Ipratropium (Duoneb 3 Mg/0.5 Mg (3 Ml) Ud) 3 ml INH Q4H PRN PRN Reason: Shortness of Breath Last Admin: 05/27/18 19:44 Dose: 3 ml Aspirin (Aspirin) 325 mg PO DAILY [facility] Last Admin: 05/28/18 09:57 Dose: 325 mg Clopidogrel Bisulfate (Plavix) 75 mg PO DAILY [facility] Last Admin: 05/28/18 09:57 Dose: 75 mg Fluticasone/Vilanterol (Breo Ellipta 100-25 Mcg Inh) 1 puff INH RQD [facility] Last Admin: 05/28/18 10:10 Dose: Not Given Folic Acid (Folic Acid) 1 mg PO DAILY [facility] Last Admin: 05/28/18 10:04 Dose: 1 mg Furosemide (Lasix) 40 mg PO BID [facility] Last Admin: 05/28/18 10:03 Dose: 40 mg Heparin Sodium (Porcine) (Heparin) 5,000 units SC Q8 [facility] Nitroglycerin/Dextrose (Nitroglycerin 50 Mg/250 Ml D5w) 50 mg in 250 mls @ 7.5 mls/hr IV .Q24H [facility]; Protocol Last Admin: 05/28/18 10:17 Dose: 100 mcg/min, 30 mls/hr Magnesium Sulfate/Dextrose (Magnesium Sulfate 1 Gm/100 Ml D5w) 1 gm in 100 mls @ 300 mls/hr IVPB Q30M [facility] Stop: 05/28/18 13:49 Lorazepam (Ativan) 1 mg IVP Q4H PRN PRN Reason: Anxiety Metoprolol Tartrate (Lopressor) 50 mg PO BID [facility] Last Admin: 05/28/18 10:04 Dose: 50 mg Pantoprazole Sodium (Protonix Ec Tab) 40 mg PO DAILY [facility] Last Admin: 05/28/18 10:04 Dose: 40 mg Potassium Chloride (Potassium Chloride Oral Soln) 40 meq PO Q6H [facility] Stop: 05/28/18 17:01 Last Admin: 05/28/18 10:55 Dose: 40 meq Rosuvastatin Calcium (Crestor) 20 mg PO HS [facility] Last Admin: 05/27/18 22:30 Dose: Not Given Thiamine HCl (Vitamin B1 Tab) 100 mg PO DAILY [facility] Last Admin: 05/28/18 10:03 Dose: 100 mg Tiotropium [place] (Spiriva) 18 mcg INH RQ24 [facility] Last Admin: 05/28/18 10:11 Dose: Not Given Physical Exam - Constitutional Appears: Non-toxic, No Acute Distress - Head Exam Head Exam: ATRAUMATIC, NORMOCEPHALIC - Eye Exam Eye Exam: EOMI, Normal appearance, PERRL - ENT Exam ENT Exam: Mucous Membranes Moist - Neck Exam Neck exam: Positive for: Full Rom, Normal Inspection - Respiratory Exam Respiratory Exam: Clear to Auscultation Bilateral, NORMAL BREATHING PATTERN. absent: Accessory Muscle Use, Rales, Rhonchi, Wheezes - Cardiovascular Exam Cardiovascular Exam: REGULAR RHYTHM, RRR, +S1, +S2. absent: Diastolic murmur, Gallop, Rubs, Systolic Murmur - GI/Abdominal Exam GI & Abdominal Exam: Normal Bowel Sounds. absent: Guarding, Tenderness - Extremities Exam Extremities exam: Positive for: normal inspection. Negative for: pedal edema - Back Exam Back exam: FULL ROM, NORMAL INSPECTION - Neurological Exam Neurological exam: Alert, Oriented x3 - Psychiatric Exam Psychiatric exam: Normal Affect, Normal Mood - Skin Skin Exam: Dry, Intact, Warm Results - Vital Signs Recent Vital Signs: Last Vital Signs Temp 98.3 F 05/28/18 00:00 Pulse 90 05/28/18 10:17 Resp 21 05/28/18 06:30 BP 124/67 05/28/18 10:17 Pulse Ox 94 L 05/28/18 02:00 - Labs Result Diagrams: 05/28/18 04:22 05/28/18 04:22 Labs: Laboratory Results - last 24 hr 05/28/18 05/28/18 05/28/18 04:22 04:22 04:22 WBC RBC Hgb Hct MCV MCH MCHC RDW Plt Count MPV Neut % (Auto) Lymph % (Auto) [place] % (Auto) Eos % (Auto) Baso % (Auto) Neut # (Auto) Lymph # (Auto) [place] # (Auto) Eos # (Auto) Baso # (Auto) Neutrophils % (Manual) Lymphocytes % (Manual) Reactive Lymphs % Monocytes % (Manual) Eosinophils % (Manual) Basophils % (Manual) Platelet Estimate RBC Morphology Sodium Potassium Chloride Carbon Dioxide Anion Gap BUN Creatinine Est GFR ( Amer) Est GFR (Non-Af Amer) Random Glucose Hemoglobin A1c 5.0 Calcium Phosphorus Magnesium Total Bilirubin AST ALT Alkaline Phosphatase Total Protein Albumin Globulin Albumin/Globulin Ratio Triglycerides 52 Cholesterol 191 LDL Cholesterol Direct 71 HDL Cholesterol 133 H Free T4 0.86 TSH 3rd Generation 1.07 Urine Opiates Screen Urine Methadone Screen Ur Barbiturates Screen Ur Phencyclidine Scrn Ur Amphetamines Screen U Benzodiazepines Scrn U Oth Cocaine Metabols U Cannabinoids Screen 05/28/18 05/28/18 05/28/18 04:22 04:22 06:26 WBC 7.7 RBC 4.82 Hgb 14.7 Hct 42.8 MCV 88.9 D MCH 30.5 MCHC 34.3 RDW 13.5 Plt Count 160 MPV 9.6 Neut % (Auto) 76.1 H Lymph % (Auto) 8.4 L [place] % (Auto) 7.9 Eos % (Auto) 5.8 H Baso % (Auto) 1.8 Neut # (Auto) 5.9 Lymph # (Auto) 0.7 L [place] # (Auto) 0.6 Eos # (Auto) 0.5 Baso # (Auto) 0.1 Neutrophils % (Manual) 71 Lymphocytes % (Manual) 6 L Reactive Lymphs % 8 H Monocytes % (Manual) 9 Eosinophils % (Manual) 5 H Basophils % (Manual) 1 Platelet Estimate Normal RBC Morphology Normal Sodium 131 L Potassium 3.5 L Chloride 97 L Carbon Dioxide 23 Anion Gap 15 BUN 23 H Creatinine 1.8 H Est GFR ( Amer) 48 Est GFR (Non-Af Amer) 40 Random Glucose 110 Hemoglobin A1c Calcium 8.6 Phosphorus 4.3 Magnesium 1.7 Total Bilirubin 1.8 H AST 176 H D ALT 55 Alkaline Phosphatase 110 Total Protein 7.3 Albumin 4.1 Globulin 3.2 Albumin/Globulin Ratio 1.3 Triglycerides Cholesterol LDL Cholesterol Direct HDL Cholesterol Free T4 TSH 3rd Generation Urine Opiates Screen Negative Urine Methadone Screen Negative Ur Barbiturates Screen Negative Ur Phencyclidine Scrn Negative Ur Amphetamines Screen Negative U Benzodiazepines Scrn Positive U Oth Cocaine Metabols Positive H U Cannabinoids Screen Negative Assessment & Plan - Assessment and Plan (Free Text) Assessment: 52 yo M with PMH of HFrEF, HTN, COPD, CKD, alcohol and cocaine abuse presented to ED with EKG changes concerning for STEMI, code heart was called, and patient underwent PCI. Plan: 1. STEMI Troponin of 34.9 identified on admission 100% occlusion of RCA identified on cath, JAIR placed LCX with 80% stenosis Recommend repeat staged PCI of LCX and PLV branches in 48 hours Keep on ASA 325 mg daily, plavix 75 mg daily, IV nitroglycerin and IV lasix until next PCI, planned for Saturday 2. HFrEF Likely worsened by severe CAD Estimated EF of 10-15% identified on PCI Continue IV lasix, metoprolol, crestor Continue daily weight, strict I & O Will reassess EF after PCI on Saturday Case and plan reviewed and discussed with my attending Dr. Tee Aranda, IM Resident PGY-1 - Date & Time Date: 05/27/18 Time: 18:00
[2018-05-28] MEDS ORDERED: Magnesium Sulfate 1 gm in D5W 1 GM/100 ML BAG IVPB SCH (13:00)
[2018-05-28 13:33] LABS: TROPONIN I 34.9 ng/mL (0.00-0.120)
--- NOTE | 2018-05-28 13:43 | CP.PCM.CON ---
History of Present Illness - History of Present Illness History of Present Illness: 52 yo AA male, hx of CKD, HTN, COPD, ETOH, cocaine use, systolic CHF with EF 10- 15%, presents with chest pain after snorting cocaine. Pt taken to lab specialist and had stent of TO of RCA. Now in ICU on NTG drip. Pt also on Lasix drip for pu lmonary vascular congestion. Pt with baseline CKD of 2. Has not seen Renal in past. No known renal disease in family. Denies difficulty urinating. Pt uncooperative with most questions at this time. Review of Systems - Review of Systems Systems not reviewed;Unavailable: Uncooperative Past Patient History - Infectious Disease Hx of Infectious Diseases: None - Past Medical History & Family History Past Medical History?: Yes - Past Social History Smoking Status: Heavy Smoker > 10 Cigarettes Daily - CARDIAC Hx Atrial Fibrillation: No Hx Cardia Arrhythmia: No Hx Congestive Heart Failure: Yes Hx Hypercholesterolemia: Yes Hx Hypertension: Yes Hx Mitral Valve Prolapse: No Hx Pacemaker: No Hx Peripheral Edema: Yes - PULMONARY Hx Asthma: No Hx Bronchitis: Yes Hx Chronic Obstructive Pulmonary Disease (COPD): Yes Hx Emphysema: No Hx Pneumonia: Yes Hx Pulmonary Embolism: No Hx Sleep Apnea: No - NEUROLOGICAL Hx Alzheimer's Disease: No Hx Dementia: No Hx Migraine: No Hx Multiple Sclerosis: No Hx Parkinson's Disease: No Hx Seizures: No Hx Transient Ischemic Attacks (TIA): No - HEENT Hx HEENT Problems: No - RENAL Hx Chronic Kidney Disease: Yes Hx Kidney Stones: No - ENDOCRINE/METABOLIC Hx Hyperthyroidism: No Hx Hypothyroidism: No - HEMATOLOGICAL/ONCOLOGICAL Hx Anemia: No Hx Human Immunodeficiency Virus (HIV): No Hx Sickle Cell Disease: No - INTEGUMENTARY Hx Dermatological Problems: No - MUSCULOSKELETAL/RHEUMATOLOGICAL Hx Arthritis: Yes Hx Fractures: Yes Hx Osteoporosis: No Hx Rheumatoid Arthritis: No - GASTROINTESTINAL Hx Crohn's Disease: No Hx Diverticulitis: No Hx Gall Bladder Disease: No Hx Gastritis: Yes Hx Pancreatitis: No - GENITOURINARY/GYNECOLOGICAL Hx Sexually Transmitted Disorders: No - PSYCHIATRIC Hx Substance Use: Yes - SURGICAL HISTORY Hx Appendectomy: No Hx Carotid Endarterectomy: No Hx Cholecystectomy: No Hx Coronary Artery Bypass Graft: No Hx Coronary Stent: No Hx Tonsillectomy: No - ANESTHESIA Hx Anesthesia: Yes Hx Anesthesia Reactions: No Hx Malignant Hyperthermia: No Meds Allergies/Adverse Reactions: Allergies Allergy/AdvReac Type Severity Reaction Status Date / Time No Known Allergies Allergy Verified 05/27/18 16:01 - Medications Medications: Current Medications Albuterol/Ipratropium (Duoneb 3 Mg/0.5 Mg (3 Ml) Ud) 3 ml INH Q4H PRN PRN Reason: Shortness of Breath Last Admin: 05/27/18 19:44 Dose: 3 ml Aspirin (Aspirin) 325 mg PO DAILY [facility] Last Admin: 05/28/18 09:57 Dose: 325 mg Clopidogrel Bisulfate (Plavix) 75 mg PO DAILY [facility] Last Admin: 05/28/18 09:57 Dose: 75 mg Fluticasone/Vilanterol (Breo Ellipta 100-25 Mcg Inh) 1 puff INH RQD [facility] Last Admin: 05/28/18 10:10 Dose: Not Given Folic Acid (Folic Acid) 1 mg PO DAILY [facility] Last Admin: 05/28/18 10:04 Dose: 1 mg Furosemide (Lasix) 40 mg PO BID [facility] Last Admin: 05/28/18 10:03 Dose: 40 mg Heparin Sodium (Porcine) (Heparin) 5,000 units SC Q8 [facility] Nitroglycerin/Dextrose (Nitroglycerin 50 Mg/250 Ml D5w) 50 mg in 250 mls @ 7.5 mls/hr IV .Q24H [facility]; Protocol Last Admin: 05/28/18 10:17 Dose: 100 mcg/min, 30 mls/hr Lorazepam (Ativan) 1 mg IVP Q4H PRN PRN Reason: Anxiety Metoprolol Tartrate (Lopressor) 50 mg PO BID [facility] Last Admin: 05/28/18 10:04 Dose: 50 mg Pantoprazole Sodium (Protonix Ec Tab) 40 mg PO DAILY [facility] Last Admin: 05/28/18 10:04 Dose: 40 mg Potassium Chloride (Potassium Chloride Oral Soln) 40 meq PO Q6H [facility] Stop: 05/28/18 17:01 Last Admin: 05/28/18 10:55 Dose: 40 meq Rosuvastatin Calcium (Crestor) 20 mg PO HS [facility] Last Admin: 05/27/18 22:30 Dose: Not Given Thiamine HCl (Vitamin B1 Tab) 100 mg PO DAILY [facility] Last Admin: 05/28/18 10:03 Dose: 100 mg Tiotropium [place] (Spiriva) 18 mcg INH RQ24 [facility] Last Admin: 05/28/18 10:11 Dose: Not Given Physical Exam - Constitutional Appears: No Acute Distress, Chronically Ill - Head Exam Head Exam: ATRAUMATIC, NORMAL INSPECTION - Neck Exam Neck exam: Positive for: Full Rom. Negative for: Lymphadenopathy - Respiratory Exam Respiratory Exam: Decreased Breath Sounds, NORMAL BREATHING PATTERN. absent: Rhonchi - Cardiovascular Exam Cardiovascular Exam: REGULAR RHYTHM. absent: Rubs - GI/Abdominal Exam GI & Abdominal Exam: Soft. absent: Tenderness - Extremities Exam Extremities exam: Negative for: pedal edema - Neurological Exam Neurological exam: Alert - Psychiatric Exam Additional comments: not cooperative Results - Vital Signs Recent Vital Signs: Last Vital Signs Temp 98.3 F 05/28/18 00:00 Pulse 90 05/28/18 10:17 Resp 21 05/28/18 06:30 BP 124/67 05/28/18 10:17 Pulse Ox 94 L 05/28/18 02:00 - Labs Result Diagrams: 05/28/18 04:22 05/28/18 04:22 Labs: Laboratory Results - last 24 hr 05/28/18 05/28/18 05/28/18 04:22 04:22 04:22 WBC RBC Hgb Hct MCV MCH MCHC RDW Plt Count MPV Neut % (Auto) Lymph % (Auto) [place] % (Auto) Eos % (Auto) Baso % (Auto) Neut # (Auto) Lymph # (Auto) [place] # (Auto) Eos # (Auto) Baso # (Auto) Neutrophils % (Manual) Lymphocytes % (Manual) Reactive Lymphs % Monocytes % (Manual) Eosinophils % (Manual) Basophils % (Manual) Platelet Estimate RBC Morphology Sodium Potassium Chloride Carbon Dioxide Anion Gap BUN Creatinine Est GFR ( Amer) Est GFR (Non-Af Amer) Random Glucose Hemoglobin A1c 5.0 Calcium Phosphorus Magnesium Total Bilirubin AST ALT Alkaline Phosphatase Troponin I NT-Pro-B Natriuret Pep Total Protein Albumin Globulin Albumin/Globulin Ratio Triglycerides 52 Cholesterol 191 LDL Cholesterol Direct 71 HDL Cholesterol 133 H Free T4 0.86 TSH 3rd Generation 1.07 Urine Opiates Screen Urine Methadone Screen Ur Barbiturates Screen Ur Phencyclidine Scrn Ur Amphetamines Screen U Benzodiazepines Scrn U Oth Cocaine Metabols U Cannabinoids Screen 05/28/18 05/28/18 05/28/18 04:22 04:22 06:26 WBC 7.7 RBC 4.82 Hgb 14.7 Hct 42.8 MCV 88.9 D MCH 30.5 MCHC 34.3 RDW 13.5 Plt Count 160 MPV 9.6 Neut % (Auto) 76.1 H Lymph % (Auto) 8.4 L [place] % (Auto) 7.9 Eos % (Auto) 5.8 H Baso % (Auto) 1.8 Neut # (Auto) 5.9 Lymph # (Auto) 0.7 L [place] # (Auto) 0.6 Eos # (Auto) 0.5 Baso # (Auto) 0.1 Neutrophils % (Manual) 71 Lymphocytes % (Manual) 6 L Reactive Lymphs % 8 H Monocytes % (Manual) 9 Eosinophils % (Manual) 5 H Basophils % (Manual) 1 Platelet Estimate Normal RBC Morphology Normal Sodium 131 L Potassium 3.5 L Chloride 97 L Carbon Dioxide 23 Anion Gap 15 BUN 23 H Creatinine 1.8 H Est GFR ( Amer) 48 Est GFR (Non-Af Amer) 40 Random Glucose 110 Hemoglobin A1c Calcium 8.6 Phosphorus 4.3 Magnesium 1.7 Total Bilirubin 1.8 H AST 176 H D ALT 55 Alkaline Phosphatase 110 Troponin I 34.9000 H* NT-Pro-B Natriuret Pep 8370 H Total Protein 7.3 Albumin 4.1 Globulin 3.2 Albumin/Globulin Ratio 1.3 Triglycerides Cholesterol LDL Cholesterol Direct HDL Cholesterol Free T4 TSH 3rd Generation Urine Opiates Screen Negative Urine Methadone Screen Negative Ur Barbiturates Screen Negative Ur Phencyclidine Scrn Negative Ur Amphetamines Screen Negative U Benzodiazepines Scrn Positive U Oth Cocaine Metabols Positive H U Cannabinoids Screen Negative Assessment & Plan - Assessment and Plan (Free Text) Assessment: ischemic cardiomyopathy, exacerbated by cocaine use acute cor syndrome, s/p stent of RCA may need additional stent and contrast procedure ckd 3, perhaps due to cardiorenal vs hypertensive disease s/p contrast procedure for acetylcysteine monitor urine production assess diuretic requirements trend creatinine
--- NOTE | 2018-05-28 15:12 | CP.PCM.PN ---
Subjective - Date & Time of Evaluation Date of Evaluation: 05/28/18 Time of Evaluation: 10:30 - Subjective Subjective: Stefan Aranda DO, PGY-1 Cardiology Progress Note for Dr. Oliveira Patient was seen and examined at bedside this AM. He states his CP is improved but still complains of intermittent cough and SOB with exertion. He also endors es worsening leg cramps since yesterday that are worse with movement. Objective - Vital Signs/Intake and Output Vital Signs (last 24 hours): Temp Pulse Resp BP Pulse Ox 97.7 F 90 21 124/67 94 L 05/28/18 13:00 05/28/18 10:17 05/28/18 06:30 05/28/18 10:17 05/28/18 02:00 Intake and Output: 05/28/18 05/28/18 06:59 18:59 Intake Total 1888.00 291.5 Output Total 1900 0 Balance -12.00 291.5 - Medications Medications: Current Medications Albuterol/Ipratropium (Duoneb 3 Mg/0.5 Mg (3 Ml) Ud) 3 ml INH Q4H PRN PRN Reason: Shortness of Breath Last Admin: 05/27/18 19:44 Dose: 3 ml Aspirin (Aspirin) 325 mg PO DAILY [facility] Last Admin: 05/28/18 09:57 Dose: 325 mg Clopidogrel Bisulfate (Plavix) 75 mg PO DAILY [facility] Last Admin: 05/28/18 09:57 Dose: 75 mg Fluticasone/Vilanterol (Breo Ellipta 100-25 Mcg Inh) 1 puff INH RQD [facility] Last Admin: 05/28/18 10:10 Dose: Not Given Folic Acid (Folic Acid) 1 mg PO DAILY [facility] Last Admin: 05/28/18 10:04 Dose: 1 mg Furosemide (Lasix) 40 mg PO BID [facility] Last Admin: 05/28/18 10:03 Dose: 40 mg Heparin Sodium (Porcine) (Heparin) 5,000 units SC Q8 [facility] Last Admin: 05/28/18 15:08 Dose: 5,000 units Nitroglycerin/Dextrose (Nitroglycerin 50 Mg/250 Ml D5w) 50 mg in 250 mls @ 7.5 mls/hr IV .Q24H [facility]; Protocol Last Admin: 05/28/18 10:17 Dose: 100 mcg/min, 30 mls/hr Lorazepam (Ativan) 1 mg IVP Q4H PRN PRN Reason: Anxiety Metoprolol Tartrate (Lopressor) 50 mg PO BID [facility] Last Admin: 05/28/18 10:04 Dose: 50 mg Pantoprazole Sodium (Protonix Ec Tab) 40 mg PO DAILY [facility] Last Admin: 05/28/18 10:04 Dose: 40 mg Potassium Chloride (Potassium Chloride Oral Soln) 40 meq PO Q6H [facility] Stop: 05/28/18 17:01 Last Admin: 05/28/18 10:55 Dose: 40 meq Rosuvastatin Calcium (Crestor) 20 mg PO HS [facility] Last Admin: 05/27/18 22:30 Dose: Not Given Thiamine HCl (Vitamin B1 Tab) 100 mg PO DAILY [facility] Last Admin: 05/28/18 10:03 Dose: 100 mg Tiotropium [place] (Spiriva) 18 mcg INH RQ24 [facility] Last Admin: 05/28/18 10:11 Dose: Not Given - Labs Labs: 05/28/18 04:22 05/28/18 04:22 - Constitutional Appears: Non-toxic, No Acute Distress - Head Exam Head Exam: ATRAUMATIC, NORMOCEPHALIC - Eye Exam Eye Exam: EOMI, Normal appearance, PERRL - ENT Exam ENT Exam: Mucous Membranes Moist - Neck Exam Neck Exam: Full ROM, Normal Inspection - Respiratory Exam Respiratory Exam: Clear to Ausculation Bilateral. absent: Rales, Rhonchi, Wheezes - Cardiovascular Exam Cardiovascular Exam: REGULAR RHYTHM, RRR, +S1, +S2. absent: Gallop, Rubs, Murmur - GI/Abdominal Exam GI & Abdominal Exam: Soft, Normal Bowel Sounds. absent: Tenderness - Extremities Exam Extremities Exam: Full ROM, Normal Inspection - Back Exam Back Exam: Full ROM, NORMAL INSPECTION - Neurological Exam Neurological Exam: Alert, Awake, Oriented x3 - Psychiatric Exam Psychiatric exam: Anxious - Skin Skin Exam: Dry, Intact, Warm Assessment and Plan - Assessment and Plan (Free Text) Assessment: 52 yo M with PMH of HFrEF, HTN, COPD, CKD, alcohol and cocaine abuse presented to ED with STEMI is now s/p PCI and JAIR placement to RCA. Plan: 1. STEMI Continue ASA, plavix, IV nitroglycerin, IV lasix Recommend repeat staged PCI of LCX and PLV branches planned for Saturday Cr stable at 1.8 which appears less than baseline Will continue to monitor and f/u nephrology recs prior to planned cath on Saturday Recommend maintain Mg > 2 for patient's muscle cramps, 2 g additional MgSO4 ordered 2. HFrEF Continue IV lasix, metoprolol, crestor Continue daily weight, strict I & O Will reassess EF after PCI on Saturday Case and plan reviewed and discussed with my attending Dr. Tee Aranad, DO IM Resident PGY-1
--- NOTE | 2018-05-28 19:07 | CP.PCM.PN ---
Subjective - Date & Time of Evaluation Date of Evaluation: 05/28/18 Time of Evaluation: 19:00 - Subjective Subjective: Patient seen, examined, case discussed with medical detailist. Patient seen this evening. Patient ate his lunch. Patient denies currently chest pain, shortness of breath, nausea, abdominal pain, nausea, vomiting, headache,. Case discussed with production control technologist recommended for repeat echo, proBNP, troponin,. Planning for transfer to p.o. on Saturday for further intervention of RCA. Patient was typed titrated off nitro drip. Assessment and plan 1. STEMI Assessment/Plan * Code heart 05/28/18-->[place]; plavix 600mg PO X1, Heparin bolus X1, Nitrostat X1 * interventional cardiology (Dr. Oliveira) on board-->help appreciated * Cardiac cath 02/2017 * Echo 10/2017 * s/p stent placement for 100% occlusion of RCA; EF: 10-20%, elevated EDP * EKG in ED: acute STEMI, inferior infarct * off nitro drip * a1c: 5.0 * Lipid panel: T, chol: 191, LDL: 71, HDL: 133 * Aspirin 325mg PO daily * Plavix 75mg PO daily * Lasix 40mg PO BID * Lopressor 50mg PO BID 2. Systolic CHF Assessment/Plan * History of noncompliance with [employer] * Aspirin 325mg PO daily * Crestor 20mg POqHS * Lopressor * Echo 10/2017 EF: 35 * Per cath: 10-20% * Fluid restriction * Intake and out 3. COPD, history of Assessment/Plan * duonebs PRN * spiriva 18mcg inhaled daily * breo elipta inhaled daily * f/u CXR 4. h/o HTN Assessment/Plan * lopressor tartate 25mg PO BID 5. h/o CKD Assessment/Plan * BUN/Cr 17/1.9 * Nephro consulted, Dr. Ramos- f/u recs 6. Polysubstance abuse Assessment/Plan * etoh, tobacco, cocaine * f/u UDS * substance abuse cessation counseling 7. PPX Assessment/Plan * GI: protonix 40 IV dialy * DVT: SCDs * HHD * In [place] given: plavix 600mg PO X1, Heparin bolus X1, Nitrostat X1 as code heart Objective - Vital Signs/Intake and Output Vital Signs (last 24 hours): Temp Pulse Resp BP Pulse Ox 98.0 F 89 21 114/79 97 05/28/18 16:00 05/28/18 17:54 05/28/18 17:54 05/28/18 18:02 05/28/18 17:04 Intake and Output: 05/28/18 05/29/18 18:59 06:59 Intake Total 1454.5 Output Total 1850 Balance -395.5 - Medications Medications: Current Medications Albuterol/Ipratropium (Duoneb 3 Mg/0.5 Mg (3 Ml) Ud) 3 ml INH Q4H PRN PRN Reason: Shortness of Breath Last Admin: 05/27/18 19:44 Dose: 3 ml Aspirin (Aspirin) 325 mg PO DAILY [facility] Last Admin: 05/28/18 09:57 Dose: 325 mg Clopidogrel Bisulfate (Plavix) 75 mg PO DAILY [facility] Last Admin: 05/28/18 09:57 Dose: 75 mg Fluticasone/Vilanterol (Breo Ellipta 100-25 Mcg Inh) 1 puff INH RQD [facility] Last Admin: 05/28/18 10:10 Dose: Not Given Folic Acid (Folic Acid) 1 mg PO DAILY [facility] Last Admin: 05/28/18 10:04 Dose: 1 mg Furosemide (Lasix) 40 mg PO BID [facility] Last Admin: 05/28/18 17:40 Dose: 40 mg Heparin Sodium (Porcine) (Heparin) 5,000 units SC Q8 [facility] Last Admin: 05/28/18 15:08 Dose: 5,000 units Lorazepam (Ativan) 1 mg IVP Q4H PRN PRN Reason: Anxiety Metoprolol Tartrate (Lopressor) 50 mg PO BID [facility] Last Admin: 05/28/18 17:41 Dose: 50 mg Pantoprazole Sodium (Protonix Ec Tab) 40 mg PO DAILY [facility] Last Admin: 05/28/18 10:04 Dose: 40 mg Rosuvastatin Calcium (Crestor) 20 mg PO HS [facility] Last Admin: 05/27/18 22:30 Dose: Not Given Thiamine HCl (Vitamin B1 Tab) 100 mg PO DAILY [facility] Last Admin: 05/28/18 10:03 Dose: 100 mg Tiotropium [place] (Spiriva) 18 mcg INH RQ24 [facility] Last Admin: 05/28/18 10:11 Dose: Not Given - Labs Labs: 05/28/18 04:22 05/28/18 04:22 - Constitutional Appears: Non-toxic, No Acute Distress - Eye Exam Eye Exam: EOMI - ENT Exam ENT Exam: Mucous Membranes Moist - Respiratory Exam Respiratory Exam: Clear to Ausculation Bilateral, NORMAL BREATHING PATTERN. absent: Rales, Rhonchi, Wheezes - Cardiovascular Exam Cardiovascular Exam: REGULAR RHYTHM, +S1, +S2 - GI/Abdominal Exam GI & Abdominal Exam: Soft, Normal Bowel Sounds. absent: Distended, Firm, Guarding, Rigid, Rebound - Extremities Exam Extremities Exam: absent: Pedal Edema, Tenderness - Back Exam Back Exam: absent: CVA tenderness (L), CVA tenderness (R) - Neurological Exam Neurological Exam: Alert, Awake, Oriented x3 - Psychiatric Exam Psychiatric exam: Normal Affect, Normal Mood - Skin Skin Exam: Dry, Intact, Normal Color, Warm
[2018-05-28 23:51] LABS: SQUAMOUS EPITHIAL 1 /hpf (0-5); URINE BILIRUBIN NEGATIVE (NEGATIVE); URINE BLOOD 1+ (NEGATIVE); URINE CLARITY Clear (Clear); URINE COLOR Yellow (YELLOW); URINE GLUCOSE (UA) NORMAL (Normal); URINE LEUKOCYTE ESTERASE NEG Leu/uL (Negative); URINE PROTEIN 2+ mg/dL (NEGATIVE); URINE UROBILINOGEN NORMAL mg/dL (0.2-1.0)
[2018-05-29 06:10] LABS: BASO % 0.4 % (0.0-2.0); EOS # 0.5 K/uL (0.0-0.7); EOS % 6.7 % (0.0-4.0); HEMOGLOBIN 15.3 g/dL (12.0-18.0); LYMPH % 13.9 % (20.0-40.0); MEAN CELL VOLUME 91.5 fL (80.0-94.0); MEAN CORPUSCULAR HEMOGLOBIN 31.1 pg (27.0-31.0); MEAN PLATELET VOLUME 9.8 fL (7.2-11.7); MONO # 0.8 K/uL (0.0-0.8); MONO % 11.2 % (0.0-10.0); NEUT # 4.9 K/uL (1.8-7.0); NEUT % 67.8 % (50.0-75.0); RBC 4.94 Mil/uL (4.40-5.90); RED CELL DISTRIBUTION WIDTH 13.8 % (11.5-14.5); WHITE BLOOD COUNT 7.2 K/uL (4.8-10.8)
[2018-05-29 06:28] LABS: ALB/GLOB RATIO 1.1 (1.0-2.1); ALBUMIN 3.7 g/dL (3.5-5.0); CALCIUM 8.6 mg/dl (8.6-10.4)
--- NOTE | 2018-05-29 07:18 | CP.CCUPN ---
CCU Subjective - Physician Review Subjective (Free Text): 05/29/18 09:34 Patient seen and examined at bedside. No acute events overnight. Patient denies chest pain, shortness of breath, or any other complaints. Patient is stable for transfer to telemetry. Critical Care Time Spent (in minutes): 35 CCU Objective - Vital Signs / Intake & Output Vital Signs (Last 4 hours): Vital Signs Temp Pulse Resp BP 05/29/18 07:00 94 H 18 05/29/18 06:01 80 21 130/93 H 05/29/18 05:09 87 21 05/29/18 05:00 83 20 05/29/18 04:00 98 F 81 19 Intake and Output (Last 8hrs): Intake & Output 05/28/18 05/29/18 05/29/18 22:59 06:59 14:59 Intake Total 600 300 0 Output Total 300 700 200 Balance 300 -400 -200 Weight 80.5 kg Intake: Oral 600 300 0 Output: Urine 300 700 200 Urine, Voided 300 700 200 Other: # Bowel Movements 1 - Physical Exam Head: Positive for: Atraumatic, Normocephalic Pupils: Positive for: PERRL Extroacular Muscles: Positive for: EOMI Conjunctiva: Positive for: Normal Mouth: Positive for: Moist Mucous Membranes Neck: Positive for: Normal Range of Motion Respiratory/Chest: Positive for: Decreased Breath Sounds. Negative for: Respiratory Distress, Wheezes, Retracting, Rhonchi Cardiovascular: Positive for: Regular Rate and Rhythm, Normal S1, S2. Negative for: Murmurs Abdomen: Positive for: Normal Bowel Sounds. Negative for: Tenderness, Distention, Peritoneal Signs Upper Extremity: Positive for: Normal Inspection. Negative for: Cyanosis, Edema Lower Extremity: Positive for: Normal Inspection. Negative for: Edema Neurological: Positive for: GCS=15, CN II-XII Intact, Speech Normal Skin: Positive for: Warm, Normal Color Psychiatric: Positive for: Alert, Oriented x 3 - Medications Active Medications: Active Medications Generic Name Dose Route Start Last Admin Trade Name Freq PRN Reason Stop Dose Admin Albuterol/Ipratropium 3 ml 05/27/18 18:37 05/27/18 19:44 Duoneb 3 Mg/0.5 Mg (3 Ml) Ud INH 3 ml Q4H PRN Administration Shortness of Breath Aspirin 325 mg 05/28/18 10:00 05/28/18 09:57 Aspirin PO 325 mg DAILY [facility] Administration Clopidogrel Bisulfate 75 mg 05/28/18 10:00 05/28/18 09:57 Plavix PO 75 mg DAILY QUE Administration Fluticasone/Vilanterol 1 puff 05/28/18 08:00 05/28/18 10:10 Breo Ellipta 100-25 Mcg Inh INH Not Given RQD QUE Folic Acid 1 mg 05/28/18 10:00 05/28/18 10:04 Folic Acid PO 1 mg DAILY QUE Administration Furosemide 40 mg 05/28/18 10:00 05/28/18 17:40 Lasix PO 40 mg BID QUE Administration Heparin Sodium (Porcine) 5,000 units 05/28/18 14:00 05/29/18 05:59 Heparin SC 5,000 units Q8 QUE Administration Lorazepam 1 mg 05/28/18 09:26 05/28/18 21:49 Ativan IVP 1 mg Q4H PRN Administration Anxiety Metoprolol Tartrate 50 mg 05/28/18 10:00 05/28/18 17:41 Lopressor PO 50 mg BID QUE Administration Pantoprazole Sodium 40 mg 05/28/18 10:00 05/28/18 10:04 Protonix Ec Tab PO 40 mg DAILY QUE Administration Rosuvastatin Calcium 20 mg 05/27/18 22:00 05/28/18 21:41 Crestor PO 20 mg HS QUE Administration Thiamine HCl 100 mg 05/28/18 10:00 05/28/18 10:03 Vitamin B1 Tab PO 100 mg DAILY QUE Administration Tiotropium [place] 18 mcg 05/28/18 08:00 05/28/18 10:11 Spiriva INH Not Given RQ24 [facility] - Patient Studies Lab Studies: Microbiology Studies 05/27/18 Unknown MRSA Culture (Admit) - Final Nose MRSA NOT DETECTED Lab Studies 05/29/18 05/29/18 05/28/18 Range/Units 05:49 05:49 23:45 WBC 7.2 (4.8-10.8) K/uL RBC 4.94 (4.40-5.90) Mil/uL Hgb 15.3 (12.0-18.0) g/dL Hct 45.2 (35.0-51.0) % MCV 91.5 D (80.0-94.0) fL MCH 31.1 H (27.0-31.0) pg MCHC 34.0 (33.0-37.0) g/dL RDW 13.8 (11.5-14.5) % Plt Count 159 (130-400) K/uL MPV 9.8 (7.2-11.7) fL Neut % (Auto) 67.8 (50.0-75.0) % Lymph % (Auto) 13.9 L (20.0-40.0) % [place] % (Auto) 11.2 H (0.0-10.0) % Eos % (Auto) 6.7 H (0.0-4.0) % Baso % (Auto) 0.4 (0.0-2.0) % Neut # (Auto) 4.9 (1.8-7.0) K/uL Lymph # (Auto) 1.0 (1.0-4.3) K/uL [place] # (Auto) 0.8 (0.0-0.8) K/uL Eos # (Auto) 0.5 (0.0-0.7) K/uL Baso # (Auto) 0.0 (0.0-0.2) K/uL Sodium 134 (132-148) mmol/L Potassium 3.6 (3.6-5.2) mmol/L Chloride 99 (98-107) mmol/L Carbon Dioxide 26 (22-30) mmol/L Anion Gap 12 (10-20) BUN 24 H (9-20) mg/dL Creatinine 2.1 H (0.8-1.5) mg/dL Est GFR ( Amer) 40 Est GFR (Non-Af Amer) 33 Random Glucose 135 H (75-110) mg/dL Hemoglobin A1c (4.2-6.5) % Calcium 8.6 (8.6-10.4) mg/dl Phosphorus 3.3 (2.5-4.5) mg/dL Magnesium 2.1 (1.6-2.3) mg/dL Total Bilirubin 0.8 (0.2-1.3) mg/dL AST 83 H D (17-59) U/L ALT 46 (21-72) U/L Alkaline Phosphatase 84 (38-126) U/L Troponin I (0.00-0.120) ng/mL NT-Pro-B Natriuret Pep (0-900) pg/mL Total Protein 6.9 (6.3-8.3) g/dL Albumin 3.7 (3.5-5.0) g/dL Globulin 3.3 (2.2-3.9) gm/dL Albumin/Globulin Ratio 1.1 (1.0-2.1) Urine Color (YELLOW) Urine Clarity (Clear) Urine pH (5.0-8.0) Ur Specific [place] (1.003-1.030) Urine Protein (NEGATIVE) mg/dL Urine Glucose (UA) (Normal) mg/dL Urine Ketones (NEGATIVE) mg/dL Urine Blood (NEGATIVE) Urine Nitrate (NEGATIVE) Urine Bilirubin (NEGATIVE) Urine Urobilinogen (0.2-1.0) mg/dL Ur Leukocyte Esterase (Negative) Jacqueline/uL Urine WBC (Auto) (0-5) /hpf Ur Squamous Epith Cells (0-5) /hpf Ur Random Sodium 27 mmol/L U Benzodiazepines Scrn (NEGATIVE) U Oth Cocaine Metabols (NEGATIVE) 05/28/18 05/28/18 05/28/18 Range/Units 23:45 06:26 04:22 WBC (4.8-10.8) K/uL RBC (4.40-5.90) Mil/uL Hgb (12.0-18.0) g/dL Hct (35.0-51.0) % MCV (80.0-94.0) fL MCH (27.0-31.0) pg MCHC (33.0-37.0) g/dL RDW (11.5-14.5) % Plt Count (130-400) K/uL MPV (7.2-11.7) fL Neut % (Auto) (50.0-75.0) % Lymph % (Auto) (20.0-40.0) % [place] % (Auto) (0.0-10.0) % Eos % (Auto) (0.0-4.0) % Baso % (Auto) (0.0-2.0) % Neut # (Auto) (1.8-7.0) K/uL Lymph # (Auto) (1.0-4.3) K/uL [place] # (Auto) (0.0-0.8) K/uL Eos # (Auto) (0.0-0.7) K/uL Baso # (Auto) (0.0-0.2) K/uL Sodium 131 L (132-148) mmol/L Potassium 3.5 L (3.6-5.2) mmol/L Chloride 97 L (98-107) mmol/L Carbon Dioxide 23 (22-30) mmol/L Anion Gap 15 (10-20) BUN 23 H (9-20) mg/dL Creatinine 1.8 H (0.8-1.5) mg/dL Est GFR ( Amer) 48 Est GFR (Non-Af Amer) 40 Random Glucose 110 (75-110) mg/dL Hemoglobin A1c (4.2-6.5) % Calcium 8.6 (8.6-10.4) mg/dl Phosphorus 4.3 (2.5-4.5) mg/dL Magnesium 1.7 (1.6-2.3) mg/dL Total Bilirubin 1.8 H (0.2-1.3) mg/dL AST 176 H D (17-59) U/L ALT 55 (21-72) U/L Alkaline Phosphatase 110 (38-126) U/L Troponin I 34.9000 H* (0.00-0.120) ng/mL NT-Pro-B Natriuret Pep 8370 H (0-900) pg/mL Total Protein 7.3 (6.3-8.3) g/dL Albumin 4.1 (3.5-5.0) g/dL Globulin 3.2 (2.2-3.9) gm/dL Albumin/Globulin Ratio 1.3 (1.0-2.1) Urine Color Yellow (YELLOW) Urine Clarity Clear (Clear) Urine pH 5.0 (5.0-8.0) Ur Specific [place] 1.013 (1.003-1.030) Urine Protein 2+ H (NEGATIVE) mg/dL Urine Glucose (UA) Normal (Normal) mg/dL Urine Ketones Negative (NEGATIVE) mg/dL Urine Blood 1+ H (NEGATIVE) Urine Nitrate Negative (NEGATIVE) Urine Bilirubin Negative (NEGATIVE) Urine Urobilinogen Normal (0.2-1.0) mg/dL Ur Leukocyte Esterase Neg (Negative) Jacqueline/uL Urine WBC (Auto) < 1 (0-5) /hpf Ur Squamous Epith Cells 1 (0-5) /hpf Ur Random Sodium mmol/L U Benzodiazepines Scrn Positive (NEGATIVE) U Oth Cocaine Metabols Positive H (NEGATIVE) 05/28/18 Range/Units 04:22 WBC (4.8-10.8) K/uL RBC (4.40-5.90) Mil/uL Hgb (12.0-18.0) g/dL Hct (35.0-51.0) % MCV (80.0-94.0) fL MCH (27.0-31.0) pg MCHC (33.0-37.0) g/dL RDW (11.5-14.5) % Plt Count (130-400) K/uL MPV (7.2-11.7) fL Neut % (Auto) (50.0-75.0) % Lymph % (Auto) (20.0-40.0) % Rowan % (Auto) (0.0-10.0) % Eos % (Auto) (0.0-4.0) % Baso % (Auto) (0.0-2.0) % Neut # (Auto) (1.8-7.0) K/uL Lymph # (Auto) (1.0-4.3) K/uL [place] # (Auto) (0.0-0.8) K/uL Eos # (Auto) (0.0-0.7) K/uL Baso # (Auto) (0.0-0.2) K/uL Sodium (132-148) mmol/L Potassium (3.6-5.2) mmol/L Chloride (98-107) mmol/L Carbon Dioxide (22-30) mmol/L Anion Gap (10-20) BUN (9-20) mg/dL Creatinine (0.8-1.5) mg/dL Est GFR ( Amer) Est GFR (Non-Af Amer) Random Glucose (75-110) mg/dL Hemoglobin A1c 5.0 (4.2-6.5) % Calcium (8.6-10.4) mg/dl Phosphorus (2.5-4.5) mg/dL Magnesium (1.6-2.3) mg/dL Total Bilirubin (0.2-1.3) mg/dL AST (17-59) U/L ALT (21-72) U/L Alkaline Phosphatase (38-126) U/L Troponin I (0.00-0.120) ng/mL NT-Pro-B Natriuret Pep (0-900) pg/mL Total Protein (6.3-8.3) g/dL Albumin (3.5-5.0) g/dL Globulin (2.2-3.9) gm/dL Albumin/Globulin Ratio (1.0-2.1) Urine Color (YELLOW) Urine Clarity (Clear) Urine pH (5.0-8.0) Ur Specific [place] (1.003-1.030) Urine Protein (NEGATIVE) mg/dL Urine Glucose (UA) (Normal) mg/dL Urine Ketones (NEGATIVE) mg/dL Urine Blood (NEGATIVE) Urine Nitrate (NEGATIVE) Urine Bilirubin (NEGATIVE) Urine Urobilinogen (0.2-1.0) mg/dL Ur Leukocyte Esterase (Negative) Jacqueline/uL Urine WBC (Auto) (0-5) /hpf Ur Squamous Epith Cells (0-5) /hpf Ur Random Sodium mmol/L U Benzodiazepines Scrn (NEGATIVE) U Oth Cocaine Metabols (NEGATIVE) Laboratory Results - last 24 hr 05/28/18 05/28/18 05/28/18 04:22 04:22 06:26 WBC RBC Hgb Hct MCV MCH MCHC RDW Plt Count MPV Neut % (Auto) Lymph % (Auto) Row[place] % (Auto) Eos % (Auto) Baso % (Auto) Neut # (Auto) Lymph # (Auto) [place] # (Auto) Eos # (Auto) Baso # (Auto) Sodium 131 L Potassium 3.5 L Chloride 97 L Carbon Dioxide 23 Anion Gap 15 BUN 23 H Creatinine 1.8 H Est GFR ( Amer) 48 Est GFR (Non-Af Amer) 40 Random Glucose 110 Hemoglobin A1c 5.0 Calcium 8.6 Phosphorus 4.3 Magnesium 1.7 Total Bilirubin 1.8 H AST 176 H D ALT 55 Alkaline Phosphatase 110 Troponin I 34.9000 H* NT-Pro-B Natriuret Pep 8370 H Total Protein 7.3 Albumin 4.1 Globulin 3.2 Albumin/Globulin Ratio 1.3 Urine Color Urine Clarity Urine pH Ur Specific [place] Urine Protein Urine Glucose (UA) Urine Ketones Urine Blood Urine Nitrate Urine Bilirubin Urine Urobilinogen Ur Leukocyte Esterase Urine WBC (Auto) Ur Squamous Epith Cells Ur Random Sodium U Benzodiazepines Scrn Positive U Oth Cocaine Metabols Positive H 05/28/18 05/28/18 05/29/18 23:45 23:45 05:49 WBC 7.2 RBC 4.94 Hgb 15.3 Hct 45.2 MCV 91.5 D MCH 31.1 H MCHC 34.0 RDW 13.8 Plt Count 159 MPV 9.8 Neut % (Auto) 67.8 Lymph % (Auto) 13.9 L Rowan % (Auto) 11.2 H Eos % (Auto) 6.7 H Baso % (Auto) 0.4 Neut # (Auto) 4.9 Lymph # (Auto) 1.0 Rowan # (Auto) 0.8 Eos # (Auto) 0.5 Baso # (Auto) 0.0 Sodium Potassium Chloride Carbon Dioxide Anion Gap BUN Creatinine Est GFR ( Amer) Est GFR (Non-Af Amer) Random Glucose Hemoglobin A1c Calcium Phosphorus Magnesium Total Bilirubin AST ALT Alkaline Phosphatase Troponin I NT-Pro-B Natriuret Pep Total Protein Albumin Globulin Albumin/Globulin Ratio Urine Color Yellow Urine Clarity Clear Urine pH 5.0 Ur Specific [place] 1.013 Urine Protein 2+ H Urine Glucose (UA) Normal Urine Ketones Negative Urine Blood 1+ H Urine Nitrate Negative Urine Bilirubin Negative Urine Urobilinogen Normal Ur Leukocyte Esterase Neg Urine WBC (Auto) < 1 Ur Squamous Epith Cells 1 Ur Random Sodium 27 U Benzodiazepines Scrn U Oth Cocaine Metabols 05/29/18 05:49 WBC RBC Hgb Hct MCV MCH MCHC RDW Plt Count MPV Neut % (Auto) Lymph % (Auto) Rowan % (Auto) Eos % (Auto) Baso % (Auto) Neut # (Auto) Lymph # (Auto) Rowan # (Auto) Eos # (Auto) Baso # (Auto) Sodium 134 Potassium 3.6 Chloride 99 Carbon Dioxide 26 Anion Gap 12 BUN 24 H Creatinine 2.1 H Est GFR ( Amer) 40 Est GFR (Non-Af Amer) 33 Random Glucose 135 H Hemoglobin A1c Calcium 8.6 Phosphorus 3.3 Magnesium 2.1 Total Bilirubin 0.8 AST 83 H D ALT 46 Alkaline Phosphatase 84 Troponin I NT-Pro-B Natriuret Pep Total Protein 6.9 Albumin 3.7 Globulin 3.3 Albumin/Globulin Ratio 1.1 Urine Color Urine Clarity Urine pH Ur Specific [place] Urine Protein Urine Glucose (UA) Urine Ketones Urine Blood Urine Nitrate Urine Bilirubin Urine Urobilinogen Ur Leukocyte Esterase Urine WBC (Auto) Ur Squamous Epith Cells Ur Random Sodium U Benzodiazepines Scrn U Oth Cocaine Metabols Critical Care Progress Note - Nutrition Nutrition: Nutrition Category Date Time Status Heart Healthy Diet [DIET] Diets 05/27/18 Dinner Active Assessment/Plan - Assessment and Plan (Free Text) Assessment: 52yo M PMHx COPD, systolic CHF, HTN, CKD, alcohol abuse and cocaine abuse presenting with chest pain after using cocaine, admitted to ICU after stent placement for 100% occlusion of RCA. Pt for additional stent placement on 05/30/18. Plan: Neuro - AAOx3 - no focal deficits - [facility] protocol Cardio Acute MS - s/p stent placement for 100% occlusion of RCA - EF 10-20% - pt admits to cocaine use prior to ED visit - h/o CHF, HTN - lipids: TG LDL HDL (high) - UDS positive for cocaine - CXR: moderate to severe venous congestion, consolidations in R hilar region, linear atelectasis in lateral L mid lung. cardiomegaly, ectatic aorta - f/u pro BNP, ROMIs - f/u ECHO - nitroglycerin drip @25 mcg/min - d/c lasix drip - lopressor 50mg PO BID - lasix 40mg PO BID - crestor 20mg PO HS - plavix 75mg PO daily - ASA 325mg PO daily - Cardio consulted, Dr. Oliveira: for additional stent 05/30/18 Pulm COPD - f/u pro BNP - duonebs PRN - spiriva 18mcg inhaled daily - breo elipta inhaled daily - CXR: moderate to severe venous congestion, consolidations in R hilar region, linear atelectasis in lateral L mid lung. cardiomegaly, ectatic aorta - lasix 40 PO BID GI - no active issues Renal [place] - h/o CKD - BUN/Cr 21/1.8 - Nephro consulted, Dr. Ramos- f/u recs Heme - heparin 5000u SC q8h - plavix 75mg PO daily starting tomorrow - ASA 325mg PO daily starting tomorrow ID - no active issues Psych Polysubstance abuse - UDS positive cocaine - substance abuse cessation counseling Alcohol abuse - CICO protocol - ativan 1mg PO q4h PRN - Thiamine/Folate/Multivitamin PPx GI: protonix 40 PO DVT: SCDs HHD Pt seen and case reviewed with Dr. Ridhdi Peng, PGY-1
--- NOTE | 2018-05-29 08:21 | US ---
Date of service: 05/28/2018 PROCEDURE: Ultrasound of the Kidneys HISTORY: ckd COMPARISON: None available. TECHNIQUE: Sonogram of the kidneys. FINDINGS: RIGHT KIDNEY: Measures: 10.2 x 4.6 x 5.3 cm. Normal in size, contour. Probable increased echogenicity-liver increased echogenicity as well No stone, solid mass lesion or hydronephrosis visualized. LEFT KIDNEY: Measures: 10.5 x 5.9 x 5.0 cm. Normal in size, contour and probable increased echogenicity No, solid mass lesion or hydronephrosis visualized. Echogenicity shadowing 3 mm lower pole vascular or nonobstructing renal calculus. OTHER FINDINGS: None. IMPRESSION: Probable bilateral renal cortical increased echogenicity-can be seen with medical renal disease. Provided history is that of chronic kidney disease. No hydronephrosis. No renal mass. Left lower renal pole calcification-vascular calcification versus nonobstructing 3 mm left renal calculus. Probable hepatic steatosis. Concordant results (preliminary interpretation) provided by [facility].
--- NOTE | 2018-05-29 09:05 | CP.PCM.PN ---
Subjective - Date & Time of Evaluation Date of Evaluation: 05/29/18 Time of Evaluation: 09:03 - Subjective Subjective: events noted for repeat cardiac cath in AM renal US consistent with CKD off IV lasix cannot give fluids pre cath due to CHF; agree with oral lasix agree with acetylcysteine Objective - Vital Signs/Intake and Output Vital Signs (last 24 hours): Temp Pulse Resp BP Pulse Ox 98 F 94 H 18 130/93 H 96 05/29/18 04:00 05/29/18 07:00 05/29/18 07:00 05/29/18 06:01 05/28/18 20:00 Intake and Output: 05/29/18 05/29/18 06:59 18:59 Intake Total 650 0 Output Total 700 200 Balance -50 -200 - Medications Medications: Current Medications Acetylcysteine (Acetylcysteine 20%) 1,200 ml PO Q12 [facility] Stop: 05/30/18 22:01 Albuterol/Ipratropium (Duoneb 3 Mg/0.5 Mg (3 Ml) Ud) 3 ml INH Q4H PRN PRN Reason: Shortness of Breath Last Admin: 05/27/18 19:44 Dose: 3 ml Aspirin (Aspirin) 325 mg PO DAILY [facility] Last Admin: 05/28/18 09:57 Dose: 325 mg Clopidogrel Bisulfate (Plavix) 75 mg PO DAILY [facility] Last Admin: 05/28/18 09:57 Dose: 75 mg Fluticasone/Vilanterol (Breo Ellipta 100-25 Mcg Inh) 1 puff INH RQD [facility] Last Admin: 05/28/18 10:10 Dose: Not Given Folic Acid (Folic Acid) 1 mg PO DAILY [facility] Last Admin: 05/28/18 10:04 Dose: 1 mg Furosemide (Lasix) 40 mg PO BID [facility] Last Admin: 05/28/18 17:40 Dose: 40 mg Heparin Sodium (Porcine) (Heparin) 5,000 units SC Q8 [facility] Last Admin: 05/29/18 05:59 Dose: 5,000 units Lorazepam (Ativan) 1 mg IVP Q4H PRN PRN Reason: Anxiety Last Admin: 05/28/18 21:49 Dose: 1 mg Metoprolol Tartrate (Lopressor) 50 mg PO BID [facility] Last Admin: 05/28/18 17:41 Dose: 50 mg Pantoprazole Sodium (Protonix Ec Tab) 40 mg PO DAILY [facility] Last Admin: 05/28/18 10:04 Dose: 40 mg Rosuvastatin Calcium (Crestor) 20 mg PO HS [facility] Last Admin: 05/28/18 21:41 Dose: 20 mg Thiamine HCl (Vitamin B1 Tab) 100 mg PO DAILY [facility] Last Admin: 05/28/18 10:03 Dose: 100 mg Tiotropium [place] (Spiriva) 18 mcg INH RQ24 [facility] Last Admin: 05/28/18 10:11 Dose: Not Given - Labs Labs: 05/29/18 05:49 05/29/18 05:49 - Constitutional Appears: No Acute Distress, Chronically Ill - Head Exam Head Exam: ATRAUMATIC, NORMAL INSPECTION - Eye Exam Eye Exam: EOMI, Normal appearance - Neck Exam Neck Exam: Normal Inspection. absent: Tenderness - Respiratory Exam Respiratory Exam: Clear to Ausculation Bilateral, NORMAL BREATHING PATTERN - Cardiovascular Exam Cardiovascular Exam: REGULAR RHYTHM, +S1 - GI/Abdominal Exam GI & Abdominal Exam: Soft. absent: Tenderness - Extremities Exam Extremities Exam: Normal Inspection. absent: Tenderness - Neurological Exam Neurological Exam: Awake, CN II-XII Intact - Skin Skin Exam: Dry, Warm Assessment and Plan (1) CKD (chronic kidney disease) stage 3, GFR 30-59 ml/min Status: Acute (2) CAD (coronary artery disease) Status: Acute (3) CHF exacerbation Status: Acute (4) Cocaine abuse Status: Acute (5) FLORENCE (acute kidney injury) Status: Acute - Assessment and Plan (Free Text) Plan: monitor for worsening FLORENCE post cath CHF controlled- continue po lasix
--- NOTE | 2018-05-29 09:07 | CP.PCM.PN ---
Subjective - Date & Time of Evaluation Date of Evaluation: 05/29/18 Time of Evaluation: 08:00 - Subjective Subjective: Stefan Aranda DO, PGY-1 Cardiology Progress Note for Dr. Oliveira Patient was seen and examined at bedside this AM. His CP and cough are improving but consistent and worse with coughing. Objective - Vital Signs/Intake and Output Vital Signs (last 24 hours): Temp Pulse Resp BP Pulse Ox 98 F 94 H 18 130/93 H 96 05/29/18 04:00 05/29/18 07:00 05/29/18 07:00 05/29/18 06:01 05/28/18 20:00 Intake and Output: 05/29/18 05/29/18 06:59 18:59 Intake Total 650 0 Output Total 700 200 Balance -50 -200 - Medications Medications: Current Medications Acetylcysteine (Acetylcysteine 20%) 1,200 ml PO Q12 [facility] Stop: 05/30/18 22:01 Albuterol/Ipratropium (Duoneb 3 Mg/0.5 Mg (3 Ml) Ud) 3 ml INH Q4H PRN PRN Reason: Shortness of Breath Last Admin: 05/27/18 19:44 Dose: 3 ml Aspirin (Aspirin) 325 mg PO DAILY [facility] Last Admin: 05/28/18 09:57 Dose: 325 mg Clopidogrel Bisulfate (Plavix) 75 mg PO DAILY [facility] Last Admin: 05/28/18 09:57 Dose: 75 mg Fluticasone/Vilanterol (Breo Ellipta 100-25 Mcg Inh) 1 puff INH RQD [facility] Last Admin: 05/28/18 10:10 Dose: Not Given Folic Acid (Folic Acid) 1 mg PO DAILY [facility] Last Admin: 05/28/18 10:04 Dose: 1 mg Furosemide (Lasix) 40 mg PO BID [facility] Last Admin: 05/28/18 17:40 Dose: 40 mg Heparin Sodium (Porcine) (Heparin) 5,000 units SC Q8 [facility] Last Admin: 05/29/18 05:59 Dose: 5,000 units Lorazepam (Ativan) 1 mg IVP Q4H PRN PRN Reason: Anxiety Last Admin: 05/28/18 21:49 Dose: 1 mg Metoprolol Tartrate (Lopressor) 50 mg PO BID [facility] Last Admin: 05/28/18 17:41 Dose: 50 mg Pantoprazole Sodium (Protonix Ec Tab) 40 mg PO DAILY [facility] Last Admin: 05/28/18 10:04 Dose: 40 mg Rosuvastatin Calcium (Crestor) 20 mg PO HS [facility] Last Admin: 05/28/18 21:41 Dose: 20 mg Thiamine HCl (Vitamin B1 Tab) 100 mg PO DAILY [facility] Last Admin: 05/28/18 10:03 Dose: 100 mg Tiotropium [place] (Spiriva) 18 mcg INH RQ24 [facility] Last Admin: 05/28/18 10:11 Dose: Not Given - Labs Labs: 05/29/18 05:49 05/29/18 05:49 - Constitutional Appears: Non-toxic, No Acute Distress - Head Exam Head Exam: ATRAUMATIC, NORMOCEPHALIC - Eye Exam Eye Exam: EOMI, Normal appearance, PERRL - ENT Exam ENT Exam: Mucous Membranes Moist - Neck Exam Neck Exam: Full ROM, Normal Inspection - Respiratory Exam Respiratory Exam: Clear to Ausculation Bilateral, NORMAL BREATHING PATTERN. absent: Rales, Rhonchi, Wheezes - Cardiovascular Exam Cardiovascular Exam: REGULAR RHYTHM, RRR, +S1, +S2. absent: Gallop, Rubs, Murmur - GI/Abdominal Exam GI & Abdominal Exam: Soft, Normal Bowel Sounds. absent: Tenderness - Extremities Exam Extremities Exam: Normal Inspection. absent: Pedal Edema - Back Exam Back Exam: Full ROM, NORMAL INSPECTION - Neurological Exam Neurological Exam: Alert, Awake, Oriented x3 - Psychiatric Exam Psychiatric exam: Normal Affect, Normal Mood - Skin Skin Exam: Dry, Intact, Warm Assessment and Plan - Assessment and Plan (Free Text) Assessment: 52 yo M with PMH of HFrEF, HTN, COPD, CKD, alcohol and cocaine abuse presented to ED with STEMI is now s/p PCI and JAIR placement to RCA. Plan: 1. STEMI Continue ASA, plavix, IV nitroglycerin, IV lasix Recommend repeat staged PCI of LCX and PLV branches planned for Saturday Cr up to 2.1 Will continue to monitor and f/u nephrology recs prior to planned cath on Saturday 2. HFrEF Continue IV lasix, metoprolol, crestor Cath yesterday confirmed low EF of 10-15% Continue daily weight, strict I & O Will reassess EF after PCI on Saturday Case and plan reviewed and discussed with my attending Dr. Tee Aranda, DO IM Resident PGY-1
[2018-05-29] MEDS: Pantoprazole 40 mg EC Tab PO SCH (09:18)
[2018-05-29] MEDS: Fluticasone-Vilanterol 100/25mcg Diskus INH SCH (11:02)
[2018-05-29] MEDS: Tiotropium 18 mcg Cap For Inhalation INH SCH (11:02)
--- NOTE | 2018-05-29 15:16 | CP.PCM.PN ---
<Amara Day - Last Filed: 05/29/18 17:25> Subjective - Date & Time of Evaluation Date of Evaluation: 05/29/18 Time of Evaluation: 08:00 - Subjective Subjective: Medicine Progress Note: Patient was seen and examined at bedside. Patient states he is does not know when he is having another cardiac procedure. He states he is ready to go home. He denies chest pain, shortness of breath, palpitations, nausea, vomiting, fe ele, chills, diarrhea, constipation or dysura. Objective - Vital Signs/Intake and Output Vital Signs (last 24 hours): Temp Pulse Resp BP Pulse Ox 97.8 F 84 20 123/87 97 05/29/18 14:37 05/29/18 14:37 05/29/18 14:37 05/29/18 14:37 05/29/18 14:37 Intake and Output: 05/29/18 05/29/18 06:59 18:59 Intake Total 650 425 Output Total 700 650 Balance -50 -225 - Medications Medications: Current Medications Acetylcysteine (Acetylcysteine 20%) 6 ml PO Q12 [facility] Stop: 05/30/18 22:01 Albuterol/Ipratropium (Duoneb 3 Mg/0.5 Mg (3 Ml) Ud) 3 ml INH Q4H PRN PRN Reason: Shortness of Breath Last Admin: 05/27/18 19:44 Dose: 3 ml Aspirin (Aspirin) 325 mg PO DAILY [facility] Last Admin: 05/29/18 09:20 Dose: 325 mg Clopidogrel Bisulfate (Plavix) 75 mg PO DAILY [facility] Last Admin: 05/29/18 09:20 Dose: 75 mg Fluticasone/Vilanterol (Breo Ellipta 100-25 Mcg Inh) 1 puff INH RQD [facility] Last Admin: 05/29/18 11:02 Dose: Not Given Folic Acid (Folic Acid) 1 mg PO DAILY [facility] Last Admin: 05/29/18 09:21 Dose: 1 mg Furosemide (Lasix) 40 mg PO BID [facility] Last Admin: 05/29/18 09:18 Dose: 40 mg Heparin Sodium (Porcine) (Heparin) 5,000 units SC Q8 [facility] Last Admin: 05/29/18 13:16 Dose: 5,000 units Lorazepam (Ativan) 1 mg IVP Q4H PRN PRN Reason: Anxiety Last Admin: 05/28/18 21:49 Dose: 1 mg Metoprolol Tartrate (Lopressor) 50 mg PO BID [facility] Last Admin: 05/29/18 09:20 Dose: 50 mg Pantoprazole Sodium (Protonix Ec Tab) 40 mg PO DAILY [facility] Last Admin: 05/29/18 09:18 Dose: 40 mg Rosuvastatin Calcium (Crestor) 20 mg PO HS [facility] Last Admin: 05/28/18 21:41 Dose: 20 mg Thiamine HCl (Vitamin B1 Tab) 100 mg PO DAILY [facility] Last Admin: 05/29/18 09:18 Dose: 100 mg Tiotropium [place] (Spiriva) 18 mcg INH RQ24 [facility] Last Admin: 05/29/18 11:02 Dose: Not Given - Labs Labs: 05/29/18 05:49 05/29/18 05:49 - Constitutional Appears: No Acute Distress - Head Exam Head Exam: ATRAUMATIC, NORMAL INSPECTION - Eye Exam Eye Exam: EOMI, Normal appearance - ENT Exam ENT Exam: Mucous Membranes Moist - Respiratory Exam Respiratory Exam: Clear to Ausculation Bilateral, NORMAL BREATHING PATTERN - Cardiovascular Exam Cardiovascular Exam: REGULAR RHYTHM, +S1, +S2 - GI/Abdominal Exam GI & Abdominal Exam: Soft, Normal Bowel Sounds. absent: Tenderness - Extremities Exam Extremities Exam: Normal Inspection - Neurological Exam Neurological Exam: Alert, Awake, Oriented x3 - Psychiatric Exam Psychiatric exam: Normal Affect - Skin Skin Exam: Normal Color, Warm Assessment and Plan - Assessment and Plan (Free Text) Assessment: STEMI - Cardiac Consult: Dr. Oliveira --> help appreciated - s/p stent placement for 100% occlusion of RCA - EF 10-20% - Plan for possible repeat PCI 05/30/18 - Medications: * Aspirin 325mg po daily * Plavix 75mg po daily * Lasix 40mg po bid * Metorprolol Tartrate 50mg po bid * Crestor 20mg po HS Systolic CHF - f/u ECHO - Chest xray (05/27/18): Moderate to severe venous congestion. Confluent consolidative changes in the right hilar region extending into the right suprahilar region. Linear atelectasis in the lateral aspect of the left midlung zone. Elevated right hemidiaphragm. Enlarged ectatic aorta. Cardiomegaly. - ProBNP 8370 - Measure daily weights; I/Os - hA1c 5.0 - Lipid Panel: Triglycerides 52; Total Cholesterol 191; LDL 71; HDL 133 - Medications: * Lasix 40mg po bid * Metorprolol Tartrate 50mg po bid * Crestor 20mg po HS History of HTN - TSH 1.07 (WNL) - Medication: * Metorprolol Tartrate 50mg po bid History of CKD Stage 3 - Nephrology Consult: Dr. Ramos --> help appreciated - Renal US (05/28/18): Probable bilateral renal cortical increased echogenicity- can be seen with medical renal disease. Provided history is that of chronic kidney disease. No hydronephrosis. No renal mass. Left lower renal pole calcification-vascular calcification versus nonobstructing 3 mm left renal calculus. Probable hepatic steatosis. History of COPD - Chest xray (05/27/18): Moderate to severe venous congestion. Confluent consolidative changes in the right hilar region extending into the right suprahilar region. Linear atelectasis in the lateral aspect of the left midlung zone. Elevated right hemidiaphragm. Enlarged ectatic aorta. Cardiomegaly. - Medications: * Duonebs q4prn * Spiriva * Breo Ellipta Polysubstance Abuse - UDS: + cocaine; + Benzodiazepines - Medications * Folic Acid 1mg po daily * Ativan 1mg IV q4prn * Thiamine 100mg po daily Prophylaxis - Heparin 5,000 units SC q8h - Protonix 40mg po daily - SCDs - Heart Healthy Diet Case discussed with Dr. Kate Day PGY-2 <Coleen Love V - Last Filed: 05/29/18 18:09> Objective - Vital Signs/Intake and Output Vital Signs (last 24 hours): Temp Pulse Resp BP Pulse Ox 98 F 80 20 132/86 98 05/29/18 16:00 05/29/18 16:00 05/29/18 16:00 05/29/18 16:00 05/29/18 16:00 Intake and Output: 05/29/18 05/29/18 06:59 18:59 Intake Total 650 425 Output Total 700 650 Balance -50 -225 - Medications Medications: Current Medications Acetylcysteine (Acetylcysteine 20%) 6 ml PO Q12 [facility] Stop: 05/30/18 22:01 Last Admin: 05/29/18 15:36 Dose: 6 ml Albuterol/Ipratropium (Duoneb 3 Mg/0.5 Mg (3 Ml) Ud) 3 ml INH Q4H PRN PRN Reason: Shortness of Breath Last Admin: 05/27/18 19:44 Dose: 3 ml Aspirin (Aspirin) 325 mg PO DAILY [facility] Last Admin: 05/29/18 09:20 Dose: 325 mg Clopidogrel Bisulfate (Plavix) 75 mg PO DAILY [facility] Last Admin: 05/29/18 09:20 Dose: 75 mg Fluticasone/Vilanterol (Breo Ellipta 100-25 Mcg Inh) 1 puff INH RQD [facility] Last Admin: 05/29/18 11:02 Dose: Not Given Folic Acid (Folic Acid) 1 mg PO DAILY [facility] Last Admin: 05/29/18 09:21 Dose: 1 mg Furosemide (Lasix) 40 mg PO BID [facility] Last Admin: 05/29/18 09:18 Dose: 40 mg Heparin Sodium (Porcine) (Heparin) 5,000 units SC Q8 [facility] Last Admin: 05/29/18 13:16 Dose: 5,000 units Lorazepam (Ativan) 1 mg IVP Q4H PRN PRN Reason: Anxiety Last Admin: 05/28/18 21:49 Dose: 1 mg Metoprolol Tartrate (Lopressor) 50 mg PO BID [facility] Last Admin: 05/29/18 09:20 Dose: 50 mg Pantoprazole Sodium (Protonix Ec Tab) 40 mg PO DAILY [facility] Last Admin: 05/29/18 09:18 Dose: 40 mg Rosuvastatin Calcium (Crestor) 20 mg PO HS [facility] Last Admin: 05/28/18 21:41 Dose: 20 mg Thiamine HCl (Vitamin B1 Tab) 100 mg PO DAILY [facility] Last Admin: 05/29/18 09:18 Dose: 100 mg Tiotropium [place] (Spiriva) 18 mcg INH RQ24 [facility] Last Admin: 05/29/18 11:02 Dose: Not Given - Labs Labs: 05/29/18 05:49 05/29/18 05:49 Attending/Attestation - Attestation I have personally seen and examined this patient.: Yes I have fully participated in the care of the patient.: Yes I have reviewed all pertinent clinical information, including history, physical exam and plan: Yes Notes (Text): Patient seen, examined, case discussed with durable medical equipment repairer. Patient is accompanied by his sister and his aunt. Patient admits sharing medical information with family members present. Patient denies any chest pain, shortness of breath, abdominal pain, nausea, constipation, vomiting. I had a rather toshia discussion with him as well as his family members at bedside indicating that he had had had a heart attack at [place] and required emergent cardiac catheterization. Patient has distal RCA that was fixed at the time the code heart however he does have a left circumflex which also requires in tervention. I also did indicate to him that he has a systolic severe heart failure. And that the use of both his alcohol, cocaine, and cigarette smoking do not help in fact worsen his heart condition. He also did indicate to him that he also has underlying kidney disease and given that there is a risk for contrast-induced nephropathy to enable the heart doctor to see his heart to make the corrections needed while possible risk for dialysis. Patient is understanding as well as his family at bedside that he may or may not need dialysis depending on the cath. Patient is to be going to be alone tomorrow for Cardiac cath of the left circumflex arrangements to be made by cardiology. I did indicate to the family that with patient who has a severe systolic heart failure he is at risk for things such as pulmonary edema and backup of fluid as well as life-threatening cardiac arrhythmias. Assessment/Plan 1. STEMI Assessment/Plan * Code heart 05/27/18 * Cardiac Consult: Dr. Oliveira --> help appreciated * s/p stent placement for 100% occlusion of RCA; EF 10-20%; high EDP * Patient transferred out of the unit 05/29/18 * Repeat PCI 05/30/18 at [place] cath for left circumflex artery - Medications: * Aspirin 325mg po daily * Plavix 75mg po daily * Lasix 40mg po bid * Metorprolol Tartrate 50mg po bid * Crestor 20mg po HS 2. Severe Systolic CHF exacerbation Assessment/Plan * Chest xray (05/27/18): Moderate to severe venous congestion. Confluent conso lidative changes in the right hilar region extending into the right suprahilar region. Linear atelectasis in the lateral aspect of the left midlung zone. Elevated right hemidiaphragm. Enlarged ectatic aorta. Cardiomegaly. * ProBNP 8370 * Measure daily weights; I/Os * hA1c 5.0 * Lipid Panel: Triglycerides 52; Total Cholesterol 191; LDL 71; HDL 133 * Medications: * Aspirin 325mg po daily * Lasix 40mg po bid * Metorprolol Tartrate 50mg po bid * Crestor 20mg po HS * no Vahe/arb given CKD * Echocardiogram (05/29/18): left ventricle is moderately dilated, ejection fraction: 25-30%, global hypokineses of the left ventricle. left aitral pressure is moderately elevated. mildly elevated la volume index. left atrium is severely dilated. mitral regurgitation is mild. no pericardial effusion. 3. History of HTN Assessment/Plan * Medication: Metorprolol Tartrate 50mg po bid 4. History of CKD, Stage 3 Assessment/Plan * Nephrology Consult: Dr. Ramos --> help appreciated * Renal US (05/28/18): Probable bilateral renal cortical increased echogenicity- can be seen with medical renal disease. Provided history is that of chronic kidney disease. No hydronephrosis. No renal mass. Left lower renal pole calcification-vascular calcification versus nonobstructing 3 mm left renal calculus. Probable hepatic steatosis. 5. History of COPD Assessment/Plan * Chest xray (05/27/18): Moderate to severe venous congestion. Confluent consoli dative changes in the right hilar region extending into the right suprahilar region. Linear atelectasis in the lateral aspect of the left midlung zone. Elevated right hemidiaphragm. Enlarged ectatic aorta. Cardiomegaly. * Medications: * Duonebs q4prn * Spiriva * Breo Ellipta 6. Polysubstance Abuse Assessment/Plan * UDS: + cocaine; + Benzodiazepines * Medications * Folic Acid 1mg po daily * Ativan 1mg IV q4prn * Thiamine 100mg po daily * Nicoderm 1 patch daily (smoking history) * Smoking cessation provided 7. Prophylaxis Assessment/Plan * Heparin 5,000 units SC q8h * Protonix 40mg po daily * SCDs * Heart Healthy Diet Disposition: patient is pending cardiac cath for left circumflex for tomorrow at [place] 05/30/18. Patient to be NPO after midnight.
[2018-05-29] MEDS: Acetylcysteine 20% Inhal Soln (4ml) PO SCH ×2 (15:36→21:30)
--- NOTE | 2018-05-29 16:56 | CARD ---
APPROVED REPORT Date of service: 05/28/2018 EXAM: Two-dimensional and M-mode echocardiogram with Doppler and color Doppler. Other Information Quality : GoodRhythm : INDICATION LV Function:Systolic Congenital Heart Disease COPD RISK FACTORS Hypertension 2D DIMENSIONS IVSd0.8 (0.7-1.1cm)LVDd6.4 (3.9-5.9cm) PWd1.3 (0.7-1.1cm)LA [id number] (18-58mL) LVDs5.7 (2.5-4.0cm)FS (%) 12.2 % LVEF (%)25.7 (>50%)LVEF (Brito's)23.91 % M-Mode DIMENSIONS Left Atrium (MM)5.50 (2.5-4.0cm)IVSd1.12 (0.7-1.1cm) Aortic Root3.50 (2.2-3.7cm)LVDd6.25 (4.0-5.6cm) Aortic Cusp Exc.2.25 (1.5-2.0cm)PWd1.37 (0.7-1.1cm) FS (%) 13 %LVDs5.47 (2.0-3.8cm) LVEF (%)26 (>50%) Mitral Valve MV E Quqrwfbc69.9cm/sMV A Fuhgcjod38.8cm/sE/A ratio1.3 TDI Lateral E' Peak V2.48cm/sMedial E' Peak V4.03cm/sE/Lateral E'23.8 E/Medial E'14.6 Tricuspid Valve TR Peak [id number]/sTR Peak Gr.[id number] LEFT VENTRICLE The Left Ventricle is moderately dilated. There is normal left ventricular wall thickness. The Ejection Fraction is 25-30%. There is global hypokinesis of the left ventricle. Transmitral Doppler flow pattern is Grade II-pseudonormal filling dynamics. The left atrial pressure is moderately elevated. mildly elevated la volume index RIGHT VENTRICLE The right ventricle is normal size. The right ventricular systolic function is normal. ATRIA The left atrium is severely dilated. The right atrium size is normal. The interatrial septum is intact with no evidence for an atrial septal defect. AORTIC VALVE The aortic valve is normal in structure. No aortic regurgitation is present. MITRAL VALVE The mitral valve is normal in structure. Mitral regurgitation is mild. TRICUSPID VALVE The tricuspid valve is normal in structure. There is mild tricuspid regurgitation. Right ventricular systolic pressure is estimated at 25 mmHg. There is no pulmonary hypertension. PULMONIC VALVE The pulmonary valve is normal in structure. GREAT VESSELS The aortic root is normal in size. The IVC is normal in size and collapses >50% with inspiration. PERICARDIAL EFFUSION There is no pericardial effusion. <Conclusion> The Left Ventricle is moderately dilated. The Ejection Fraction is 25-30%. There is global hypokinesis of the left ventricle. Transmitral Doppler flow pattern is Grade II-pseudonormal filling dynamics. The left atrial pressure is moderately elevated. mildly elevated la volume index The left atrium is severely dilated. Mitral regurgitation is mild. The aortic root is normal in size. There is no pericardial effusion.
[2018-05-30 06:37] LABS: BASO # 0.1 K/uL (0.0-0.2); BASO % 0.9 % (0.0-2.0); EOS # 0.8 K/uL (0.0-0.7); EOS % 11.2 % (0.0-4.0); HEMOGLOBIN 14.6 g/dL (12.0-18.0); LYMPH # 1.3 K/uL (1.0-4.3); MEAN CELL VOLUME 90.1 fL (80.0-94.0); MEAN CORPUSCULAR HEMOGLOBIN 30.8 pg (27.0-31.0); MEAN CORPUSCULAR HGB CONC 34.1 g/dL (33.0-37.0); MEAN PLATELET VOLUME 9.9 fL (7.2-11.7); MONO # 0.9 K/uL (0.0-0.8); MONO % 11.8 % (0.0-10.0); NEUT # 4.4 K/uL (1.8-7.0); NEUT % 59.1 % (50.0-75.0); NRBC % 0.1 % (0.0-2.0); RBC 4.74 Mil/uL (4.40-5.90); RED CELL DISTRIBUTION WIDTH 13.9 % (11.5-14.5); WHITE BLOOD COUNT 7.4 K/uL (4.8-10.8)
[2018-05-30 06:45] LABS: PROTHROMBIN TIME 11.3 SECONDS (9.7-12.2)
[2018-05-30 06:46] LABS: ALB/GLOB RATIO 1.1 (1.0-2.1); ALBUMIN 3.5 g/dL (3.5-5.0); CALCIUM 8.7 mg/dl (8.6-10.4)
[2018-05-30] MEDS: Tiotropium 18 mcg Cap For Inhalation INH SCH (07:45)
[2018-05-30] MEDS: Fluticasone-Vilanterol 100/25mcg Diskus INH SCH (07:45)
--- NOTE | 2018-05-30 11:21 | CP.PCM.PN ---
Subjective - Date & Time of Evaluation Date of Evaluation: 05/30/18 Time of Evaluation: 10:00 - Subjective Subjective: Stefan Aranda DO, PGY-1 Cardiology Progress Note for Dr. Oliveira Patient was seen and examined at bedside this AM [place] [facility] [place]. He has no new complaints this AM and states he feels ready for cardiac cath. Objective - Vital Signs/Intake and Output Vital Signs (last 24 hours): Temp Pulse Resp BP Pulse Ox 97.8 F 77 18 126/90 98 05/30/18 07:05 05/30/18 07:05 05/30/18 07:05 05/30/18 07:05 05/30/18 07:05 - Medications Medications: Current Medications Acetylcysteine (Acetylcysteine 20%) 6 ml PO Q12 [facility] Stop: 05/30/18 22:01 Last Admin: 05/29/18 21:30 Dose: 6 ml Albuterol/Ipratropium (Duoneb 3 Mg/0.5 Mg (3 Ml) Ud) 3 ml INH Q4H PRN PRN Reason: Shortness of Breath Last Admin: 05/27/18 19:44 Dose: 3 ml Aspirin (Aspirin) 325 mg PO DAILY [facility] Last Admin: 05/30/18 07:35 Dose: 325 mg Clopidogrel Bisulfate (Plavix) 75 mg PO DAILY [facility] Last Admin: 05/30/18 07:35 Dose: 75 mg Fluticasone/Vilanterol (Breo Ellipta 100-25 Mcg Inh) 1 puff INH RQD [facility] Last Admin: 05/29/18 11:02 Dose: Not Given Folic Acid (Folic Acid) 1 mg PO DAILY [facility] Last Admin: 05/29/18 09:21 Dose: 1 mg Furosemide (Lasix) 40 mg PO BID [facility] Last Admin: 05/29/18 18:18 Dose: 40 mg Lorazepam (Ativan) 1 mg IVP Q4H PRN PRN Reason: Anxiety Last Admin: 05/28/18 21:49 Dose: 1 mg Metoprolol Tartrate (Lopressor) 50 mg PO BID [facility] Last Admin: 05/29/18 18:18 Dose: 50 mg Nicotine (Nicoderm Cq) 1 patch TD DAILY [facility] Pantoprazole Sodium (Protonix Ec Tab) 40 mg PO DAILY [facility] Last Admin: 05/29/18 09:18 Dose: 40 mg Rosuvastatin Calcium (Crestor) 20 mg PO HS [facility] Last Admin: 05/29/18 21:30 Dose: 20 mg Thiamine HCl (Vitamin B1 Tab) 100 mg PO DAILY [facility] Last Admin: 05/29/18 09:18 Dose: 100 mg Tiotropium [place] (Spiriva) 18 mcg INH RQ24 [facility] Last Admin: 05/29/18 11:02 Dose: Not Given - Labs Labs: 05/30/18 06:18 05/30/18 06:18 PT 11.3 SECONDS (9.7-12.2) 05/30/18 06:18 INR 1.0 05/30/18 06:18 APTT 28 SECONDS (21-34) 05/30/18 06:18 - Constitutional Appears: Non-toxic, No Acute Distress - Head Exam Head Exam: ATRAUMATIC, NORMOCEPHALIC - Eye Exam Eye Exam: EOMI, Normal appearance, PERRL - ENT Exam ENT Exam: Mucous Membranes Moist - Neck Exam Neck Exam: Full ROM, Normal Inspection - Respiratory Exam Respiratory Exam: Clear to Ausculation Bilateral, NORMAL BREATHING PATTERN. absent: Rales, Rhonchi, Wheezes - Cardiovascular Exam Cardiovascular Exam: REGULAR RHYTHM, RRR, +S1, +S2. absent: Gallop, Rubs, Murmur - GI/Abdominal Exam GI & Abdominal Exam: Soft. absent: Tenderness - Extremities Exam Extremities Exam: Full ROM. absent: Pedal Edema - Back Exam Back Exam: Full ROM, NORMAL INSPECTION - Neurological Exam Neurological Exam: Alert, Awake, Oriented x3 - Psychiatric Exam Psychiatric exam: Normal Affect, Normal Mood - Skin Skin Exam: Dry, Intact, Warm Assessment and Plan - Assessment and Plan (Free Text) Assessment: 52 yo M with PMH of HFrEF, HTN, COPD, CKD, alcohol and cocaine abuse presented to ED with STEMI is now s/p PCI and JAIR placement to RCA. Plan: 1. Hx of STEMI Staged PCI of LCX and PLV branches today Continue to monitor Cr s/p PCI F/u additional nephrology recs 2. HFrEF Continue IV lasix, metoprolol, crestor Cath yesterday confirmed low EF of 10-15% Continue daily weight, strict I & O Will reassess EF after PCI Case and plan reviewed and discussed with my attending Dr. Tee Aranda, DO IM Resident PGY-1
[2018-05-30] MEDS: Pantoprazole 40 mg EC Tab PO SCH (13:37)
--- NOTE | 2018-05-30 14:00 | CP.PCM.PN ---
Subjective - Date & Time of Evaluation Date of Evaluation: 05/30/18 Time of Evaluation: 11:30 - Subjective Subjective: PGY-[address] Program for [address] Love's service Patient seen and examined at bedside. Patient offered no acute complaints. Patient denies fevers, chills, chest pain, sob, n/v, constipation or diarrhea, weakness and dysuria. Objective - Vital Signs/Intake and Output Vital Signs (last 24 hours): Temp Pulse Resp BP Pulse Ox 97.8 F 77 18 126/90 98 05/30/18 07:05 05/30/18 07:05 05/30/18 07:05 05/30/18 07:05 05/30/18 07:05 - Medications Medications: Current Medications Acetylcysteine (Acetylcysteine 20%) 6 ml PO Q12 [facility] Stop: 05/30/18 22:01 Last Admin: 05/29/18 21:30 Dose: 6 ml Albuterol/Ipratropium (Duoneb 3 Mg/0.5 Mg (3 Ml) Ud) 3 ml INH Q4H PRN PRN Reason: Shortness of Breath Last Admin: 05/27/18 19:44 Dose: 3 ml Aspirin (Aspirin) 325 mg PO DAILY [facility] Last Admin: 05/30/18 13:36 Dose: Not Given Clopidogrel Bisulfate (Plavix) 75 mg PO DAILY [facility] Last Admin: 05/30/18 13:37 Dose: Not Given Fluticasone/Vilanterol (Breo Ellipta 100-25 Mcg Inh) 1 puff INH RQD [facility] Last Admin: 05/30/18 07:45 Dose: 1 puff Folic Acid (Folic Acid) 1 mg PO DAILY [facility] Last Admin: 05/30/18 13:36 Dose: Not Given Furosemide (Lasix) 40 mg PO BID [facility] Last Admin: 05/30/18 13:36 Dose: Not Given Lorazepam (Ativan) 1 mg IVP Q4H PRN PRN Reason: Anxiety Last Admin: 05/28/18 21:49 Dose: 1 mg Metoprolol Tartrate (Lopressor) 50 mg PO BID [facility] Last Admin: 05/30/18 13:37 Dose: Not Given Nicotine (Nicoderm Cq) 1 patch TD DAILY [facility] Last Admin: 05/30/18 13:37 Dose: Not Given Pantoprazole Sodium (Protonix Ec Tab) 40 mg PO DAILY [facility] Last Admin: 05/30/18 13:37 Dose: Not Given Rosuvastatin Calcium (Crestor) 20 mg PO HS [facility] Last Admin: 05/29/18 21:30 Dose: 20 mg Thiamine HCl (Vitamin B1 Tab) 100 mg PO DAILY [facility] Last Admin: 05/30/18 13:37 Dose: Not Given Tiotropium [place] (Spiriva) 18 mcg INH RQ24 [facility] Last Admin: 05/30/18 07:45 Dose: 18 mcg - Labs Labs: 05/30/18 06:18 05/30/18 06:18 PT 11.3 SECONDS (9.7-12.2) 05/30/18 06:18 INR 1.0 05/30/18 06:18 APTT 28 SECONDS (21-34) 05/30/18 06:18 - Constitutional Appears: Non-toxic, No Acute Distress - Head Exam Head Exam: NORMAL INSPECTION, NORMOCEPHALIC - Eye Exam Eye Exam: EOMI, Normal appearance. absent: Nystagmus, Scleral icterus - ENT Exam ENT Exam: Mucous Membranes Moist - Respiratory Exam Respiratory Exam: Clear to Ausculation Bilateral, NORMAL BREATHING PATTERN. a bsent: Rales, Rhonchi, Wheezes - Cardiovascular Exam Cardiovascular Exam: REGULAR RHYTHM, +S1, +S2. absent: Tachycardia - GI/Abdominal Exam GI & Abdominal Exam: Soft, Normal Bowel Sounds. absent: Distended, Firm, Guarding, Rigid, Tenderness - Extremities Exam Extremities Exam: Normal Inspection. absent: Calf Tenderness, Pedal Edema - Back Exam Back Exam: NORMAL INSPECTION. absent: CVA tenderness (L), CVA tenderness (R) - Neurological Exam Neurological Exam: Alert, Awake, Oriented x3 - Psychiatric Exam Psychiatric exam: Normal Affect, Normal Mood - Skin Skin Exam: Intact, Normal Color Assessment and Plan - Assessment and Plan (Free Text) Assessment: Patient is a 52 yo male with past medical history of systolic CHF, HTN, COPD, CKD, alcohol and cocaine abuse presents to ED w/ chest pain after using cocaine. On EKG found to have STEMI. Patient had cardiac cath with Dr. Oliveira with stent placement in RCA. During procedure it was noted that patient had 80 percent stenosis of LCX and required repeat stenting in 48 hours. Plan: STEMI Cardiology Consult: Dr. Oliveira- 1 JAIR placed in RCA, repeat PCI with stenting for LCX (100% RCA and 80% LCX occlusion) Aspirin 325mg po daily, Plavix 75mg po daily, Lasix 40mg po bid, Lopressor 50mg po bid, Crestor 20mg po HS Systolic CHF Chest xray (05/27/18): Moderate to severe venous congestion BNP- 8370 (admission) Daily weights, Strict Is/Os Echocardiogram (05/29/18): left ventricle is moderately dilated, ejection fraction: 25-30%, global hypokineses of the left ventricle. left aitral pressure is moderately elevated. mildly elevated la volume index. left atrium is severely dilated. mitral regurgitation is mild. no pericardial effusion. Lasix 40mg po bid, Lopressor 50mg po bid HTN Metorprolol Tartrate 50mg po bid Chronic Kidney Disease Stage 3 Nephrology Consult: Dr. Ramos --> help appreciated Renal US (05/28/18): Probable bilateral renal cortical increased echogenicity-can be seen with medical renal disease. Provided history is that of chronic kidney disease. No hydronephrosis. No renal mass. Left lower renal pole calcification-vascular calcification versus nonobstructing 3 mm left renal calculus. Probable hepatic steatosis. Hx of COPD Duonebs; Spiriva; Breo Ellipta Polysubstance abuse UDS: + cocaine; + Benzodiazepines Folic Acid 1mg po daily, Ativan 1mg IV q4prn,Thiamine 100mg po daily, Nicoderm 1 patch daily (smoking history) Smoking cessation provided; Educated patient on dangers of continuing using cocaine/bzd PPX DVT ppx: Hep 5000 units sc q8h, SCDs, patient ambulating GI ppx: Protonix 40mg po daily Ashley Edwards PGY-1 Medical Management d/w Dr. Love
[2018-05-30] MEDS: Albuterol-Ipratrop 3 mg / 0.5 (3 ml) UD INH PRN (22:57)
[2018-05-31 01:12] VITALS: O2SAT 98
[2018-05-31 06:13] LABS: BASO # 0.1 K/uL (0.0-0.2); BASO % 1.1 % (0.0-2.0); EOS # 0.8 K/uL (0.0-0.7); EOS % 10.3 % (0.0-4.0); HEMOGLOBIN 13.6 g/dL (12.0-18.0); LYMPH # 1.2 K/uL (1.0-4.3); LYMPH % 15.8 % (20.0-40.0); MEAN CELL VOLUME 91.8 fL (80.0-94.0); MEAN CORPUSCULAR HEMOGLOBIN 31.1 pg (27.0-31.0); MEAN CORPUSCULAR HGB CONC 33.9 g/dL (33.0-37.0); MEAN PLATELET VOLUME 9.4 fL (7.2-11.7); MONO # 0.9 K/uL (0.0-0.8); MONO % 12.1 % (0.0-10.0); NEUT # 4.5 K/uL (1.8-7.0); NEUT % 60.7 % (50.0-75.0); RBC 4.39 Mil/uL (4.40-5.90); RED CELL DISTRIBUTION WIDTH 13.6 % (11.5-14.5); WHITE BLOOD COUNT 7.4 K/uL (4.8-10.8)
[2018-05-31 06:36] LABS: ALB/GLOB RATIO 1.2 (1.0-2.1); ALBUMIN 3.6 g/dL (3.5-5.0); CALCIUM 8.9 mg/dl (8.6-10.4)
[2018-05-31 08:31] VITALS: RESP 18; TEMP 97.7
--- NOTE | 2018-05-31 09:23 | CP.PCM.PN ---
Subjective - Date & Time of Evaluation Date of Evaluation: 05/31/18 Time of Evaluation: 09:20 - Subjective Subjective: Notes reviewed Comfortable in bed Offers no complaints Appetite good No cp or palp, no sob or cough No n/v/d No dysuria or hematuria Wants to go home 10 point ROS negative other than stated above Objective - Vital Signs/Intake and Output Vital Signs (last 24 hours): Temp Pulse Resp BP Pulse Ox 97.7 F 84 18 139/90 98 05/31/18 07:00 05/31/18 07:00 05/31/18 07:00 05/31/18 07:00 05/31/18 07:00 Intake and Output: 05/31/18 05/31/18 06:59 18:59 Intake Total 200 Balance 200 - Medications Medications: Current Medications Albuterol/Ipratropium (Duoneb 3 Mg/0.5 Mg (3 Ml) Ud) 3 ml INH Q4H PRN PRN Reason: Shortness of Breath Last Admin: 05/30/18 22:57 Dose: 3 ml Aspirin (Aspirin) 325 mg PO DAILY [facility] Last Admin: 05/30/18 13:36 Dose: Not Given Clopidogrel Bisulfate (Plavix) 75 mg PO DAILY [facility] Last Admin: 05/30/18 13:37 Dose: Not Given Fluticasone/Vilanterol (Breo Ellipta 100-25 Mcg Inh) 1 puff INH RQD [facility] Last Admin: 05/30/18 07:45 Dose: 1 puff Folic Acid (Folic Acid) 1 mg PO DAILY [facility] Last Admin: 05/30/18 13:36 Dose: Not Given Furosemide (Lasix) 40 mg PO BID [facility] Last Admin: 05/30/18 21:22 Dose: 40 mg Lorazepam (Ativan) 1 mg IVP Q4H PRN PRN Reason: Anxiety Last Admin: 05/28/18 21:49 Dose: 1 mg Metoprolol Tartrate (Lopressor) 50 mg PO BID [facility] Last Admin: 05/30/18 21:23 Dose: 50 mg Nicotine (Nicoderm Cq) 1 patch TD DAILY [facility] Last Admin: 05/30/18 13:37 Dose: Not Given Pantoprazole Sodium (Protonix Ec Tab) 40 mg PO DAILY [facility] Last Admin: 05/30/18 13:37 Dose: Not Given Rosuvastatin Calcium (Crestor) 20 mg PO HS [facility] Last Admin: 05/30/18 21:22 Dose: 20 mg Thiamine HCl (Vitamin B1 Tab) 100 mg PO DAILY [facility] Last Admin: 05/30/18 13:37 Dose: Not Given Tiotropium [place] (Spiriva) 18 mcg INH RQ24 [facility] Last Admin: 05/30/18 07:45 Dose: 18 mcg - Labs Labs: 05/31/18 06:08 05/31/18 06:08 PT 11.3 SECONDS (9.7-12.2) 05/30/18 06:18 INR 1.0 05/30/18 06:18 APTT 28 SECONDS (21-34) 05/30/18 06:18 - Constitutional Appears: Well, Non-toxic - Head Exam Head Exam: ATRAUMATIC, NORMAL INSPECTION - Eye Exam Eye Exam: EOMI, Normal appearance - ENT Exam ENT Exam: Mucous Membranes Moist, Normal Oropharynx - Neck Exam Neck Exam: absent: Lymphadenopathy, Thyromegaly - Respiratory Exam Respiratory Exam: Clear to Ausculation Bilateral, NORMAL BREATHING PATTERN. absent: Rales, Rhonchi - Cardiovascular Exam Cardiovascular Exam: REGULAR RHYTHM, +S1, +S2. absent: JVD - GI/Abdominal Exam GI & Abdominal Exam: Soft, Normal Bowel Sounds - Extremities Exam Extremities Exam: absent: Joint Swelling, Pedal Edema, Tenderness - Neurological Exam Neurological Exam: Alert, Awake, Oriented x3 - Psychiatric Exam Psychiatric exam: Normal Affect, Normal Mood - Skin Skin Exam: Dry, Intact Assessment and Plan (1) CKD (chronic kidney disease) stage 3, GFR 30-59 ml/min Status: Acute (2) [place] (acute kidney injury) Status: Acute (3) CAD (coronary artery disease) Status: Acute - Assessment and Plan (Free Text) Assessment: Renal function stable post cath electrolytes acceptable Bp controlled Continue current care
[2018-05-31] MEDS: Pantoprazole 40 mg EC Tab PO SCH (10:48)
[2018-05-31 10:49] VITALS: BP 148/87
[2018-05-31] MEDS: Fluticasone-Vilanterol 100/25mcg Diskus INH SCH (11:30)
[2018-05-31] MEDS: Tiotropium 18 mcg Cap For Inhalation INH SCH (11:30)
[2018-05-31 12:57] VITALS: PULSE 87
--- NOTE | 2018-05-31 17:25 | CP.PCM.DIS ---
<Coleen Love V - Last Filed: 05/31/18 19:50> Provider - Provider Date of Admission: 05/27/18 18:52 Attending physician: Cloeen Love DO Consults: 05/27/18 18:55 Cardiology Consult Routine Comment: ' Consulting Provider: Uri Oliveira Consulting Physician: Uri Oliveira Reason for Consult: stemi Nephrology Consult Routine Comment: Consulting Provider: Rosy Ramos Consulting Physician: Rosy Ramos Reason for Consult: ckd Hospital Course - Lab Results Lab Results: Micro Results 05/29/18 14:29 Naris MRSA Culture - Final MRSA NOT DETECTED 05/27/18 Unknown Nose MRSA Culture (Admit) - Final MRSA NOT DETECTED Most Recent Lab Values WBC 7.4 K/uL (4.8-10.8) 05/31/18 06:08 RBC 4.39 Mil/uL (4.40-5.90) L 05/31/18 06:08 Hgb 13.6 g/dL (12.0-18.0) 05/31/18 06:08 Hct 40.3 % (35.0-51.0) 05/31/18 06:08 MCV 91.8 fL (80.0-94.0) 05/31/18 06:08 MCH 31.1 pg (27.0-31.0) H 05/31/18 06:08 MCHC 33.9 g/dL (33.0-37.0) 05/31/18 06:08 RDW 13.6 % (11.5-14.5) 05/31/18 06:08 Plt Count 163 K/uL (130-400) 05/31/18 06:08 MPV 9.4 fL (7.2-11.7) 05/31/18 06:08 Neut % (Auto) 60.7 % (50.0-75.0) 05/31/18 06:08 Lymph % (Auto) 15.8 % (20.0-40.0) L 05/31/18 06:08 Daggett % (Auto) 12.1 % (0.0-10.0) H 05/31/18 06:08 Eos % (Auto) 10.3 % (0.0-4.0) H 05/31/18 06:08 Baso % (Auto) 1.1 % (0.0-2.0) 05/31/18 06:08 Neut # (Auto) 4.5 K/uL (1.8-7.0) 05/31/18 06:08 Lymph # (Auto) 1.2 K/uL (1.0-4.3) 05/31/18 06:08 Daggett # (Auto) 0.9 K/uL (0.0-0.8) H 05/31/18 06:08 Eos # (Auto) 0.8 K/uL (0.0-0.7) H 05/31/18 06:08 Baso # (Auto) 0.1 K/uL (0.0-0.2) 05/31/18 06:08 Neutrophils % (Manual) 71 % (50-75) 05/28/18 04:22 Lymphocytes % (Manual) 6 % (20-40) L 05/28/18 04:22 Reactive Lymphs % 8 % (0-0) H 05/28/18 04:22 Monocytes % (Manual) 9 % (0-10) 05/28/18 04:22 Eosinophils % (Manual) 5 % (0-4) H 05/28/18 04:22 Basophils % (Manual) 1 % (0-2) 05/28/18 04:22 Platelet Estimate Normal (NORMAL) 05/28/18 04:22 RBC Morphology Normal 05/28/18 04:22 PT 11.3 SECONDS (9.7-12.2) 05/30/18 06:18 INR 1.0 05/30/18 06:18 APTT 28 SECONDS (21-34) 05/30/18 06:18 Sodium 134 mmol/L (132-148) 05/31/18 06:08 Potassium 4.1 mmol/L (3.6-5.2) 05/31/18 06:08 Chloride 97 mmol/L (98-107) L 05/31/18 06:08 Carbon Dioxide 29 mmol/L (22-30) 05/31/18 06:08 Anion Gap 11 (10-20) 05/31/18 06:08 BUN 27 mg/dL (9-20) H 05/31/18 06:08 Creatinine 2.2 mg/dL (0.8-1.5) H 05/31/18 06:08 Est GFR ( Amer) 38 05/31/18 06:08 Est GFR (Non-Af Amer) 32 05/31/18 06:08 POC Glucose (mg/dL) 104 mg/dL (65-110) 05/30/18 06:13 Random Glucose 110 mg/dL (75-110) 05/31/18 06:08 Hemoglobin A1c 5.0 % (4.2-6.5) 05/28/18 04:22 Calcium 8.9 mg/dl (8.6-10.4) 05/31/18 06:08 Phosphorus 4.0 mg/dL (2.5-4.5) 05/31/18 06:08 Magnesium 2.0 mg/dL (1.6-2.3) 05/31/18 06:08 Total Bilirubin 0.5 mg/dL (0.2-1.3) 05/31/18 06:08 AST 45 U/L (17-59) 05/31/18 06:08 ALT 31 U/L (21-72) 05/31/18 06:08 Alkaline Phosphatase 64 U/L (38-126) 05/31/18 06:08 Troponin I 34.9000 ng/mL (0.00-0.120) H* 05/28/18 04:22 NT-Pro-B Natriuret Pep 8370 pg/mL (0-900) H 05/28/18 04:22 Total Protein 6.7 g/dL (6.3-8.3) 05/31/18 06:08 Albumin 3.6 g/dL (3.5-5.0) 05/31/18 06:08 Globulin 3.1 gm/dL (2.2-3.9) 05/31/18 06:08 Albumin/Globulin Ratio 1.2 (1.0-2.1) 05/31/18 06:08 Triglycerides 52 mg/dL (0-149) 05/28/18 04:22 Cholesterol 191 mg/dL (0-199) 05/28/18 04:22 LDL Cholesterol Direct 71 mg/dL (0-129) 05/28/18 04:22 HDL Cholesterol 133 mg/dL (30-70) H 05/28/18 04:22 Free T4 0.86 ng/dL (0.78-2.19) 05/28/18 04:22 TSH 3rd Generation 1.07 mIU/L (0.46-4.68) 05/28/18 04:22 Urine Color Yellow (YELLOW) 05/28/18 23:45 Urine Clarity Clear (Clear) 05/28/18 23:45 Urine pH 5.0 (5.0-8.0) 05/28/18 23:45 Ur Specific [place] 1.013 (1.003-1.030) 05/28/18 23:45 Urine Protein 2+ mg/dL (NEGATIVE) H 05/28/18 23:45 Urine Glucose (UA) Normal mg/dL (Normal) 05/28/18 23:45 Urine Ketones Negative mg/dL (NEGATIVE) 05/28/18 23:45 Urine Blood 1+ (NEGATIVE) H 05/28/18 23:45 Urine Nitrate Negative (NEGATIVE) 05/28/18 23:45 Urine Bilirubin Negative (NEGATIVE) 05/28/18 23:45 Urine Urobilinogen Normal mg/dL (0.2-1.0) 05/28/18 23:45 Ur Leukocyte Esterase Neg Jacqueline/uL (Negative) 05/28/18 23:45 Urine WBC (Auto) < 1 /hpf (0-5) 05/28/18 23:45 Ur Squamous Epith Cells 1 /hpf (0-5) 05/28/18 23:45 Ur Random Sodium 27 mmol/L 05/28/18 23:45 Urine Opiates Screen Negative (NEGATIVE) 05/28/18 06:26 Urine Methadone Screen Negative (NEGATIVE) 05/28/18 06:26 Ur Barbiturates Screen Negative (NEGATIVE) 05/28/18 06:26 Ur Phencyclidine Scrn Negative (NEGATIVE) 05/28/18 06:26 Ur Amphetamines Screen Negative (NEGATIVE) 05/28/18 06:26 U Benzodiazepines Scrn Positive (NEGATIVE) 05/28/18 06:26 U Oth Cocaine Metabols Positive (NEGATIVE) H 05/28/18 06:26 U Cannabinoids Screen Negative (NEGATIVE) 05/28/18 06:26 Discharge Plan - Discharge Medications Prescriptions: Albuterol HFA [Ventolin HFA 90 mcg/actuation (8 g)] 1 puff IH Q4 PRN #1 inhaler PRN Reason: Shortness Of Breath Aspirin [Ecotrin] 81 mg PO DAILY #30 tabec Carvedilol [Coreg] 3.125 mg PO BID #60 tab Clopidogrel [Plavix] 75 mg PO DAILY #30 tab Fluticasone/Vilanterol 100/25 [Breo Ellipta 100-25 MCG INH] 1 puff INH RQD #1 inhaler Nicotine 21 mg/24 hr [Nicoderm Cq] 1 patch TD DAILY 30 Days patch Ramipril [Altace] 2.5 mg PO DAILY #30 cap Rosuvastatin Calcium [Crestor] 20 mg PO HS #30 tab Tiotropium [Spiriva] 18 mcg INH RQ24 #30 cap Tiotropium [place] Inhaler [Spiriva Inhalation Handihaler Device] 1 inhaler INH ONCE #1 inhaler - Follow Up Plan Condition: GOOD Disposition: HOME/ ROUTINE Instructions: Heart Healthy Diet, Quitting Smoking for Older Adults, Heart Failure, Adult (DC), Heart Attack (DC), Drug Abuse and Drug Addiction (DC), Alcohol Abuse and Alcoholism (DC), Aspirin, Carvedilol, Clopidogrel, Nicotine, Ramipril, Rosuvastatin, Chronic Kidney Disease (DC) Additional Instructions: Patient is medically stable for discharge. please provide patient information to the [facility] ([phone]) at [place] or the [facility] [place] at [address] [place] [address] at [phone] to follow for health care mainteance. Patient recommended to follow-up with Dr. Oliveira in his office in 2 weeks. Upon discharge, patient is recommended the followin) Aspirin 81mg PO daily 2) Plavix 75mg PO daily 3) Fluticasone/Vilanterol 1 puff inhaled RQD 4) Lasix 40mg PO BID 5) Coreg 3.125mg PO BID 6) Nicoderm patch 1 patch daily 7) Crestor 20mg PO qHS 8) Spiriva 18mcg inhaled daily 9) Albuterol HFA 1 puff inhaled Q4H prn shortness of breathe 10) Rampiril 2.5mg PO daily Clinical Quality Measures - CQM - Heart Failure Ejection Fraction: Less Than 40 % Left Ventricular Function to be assessed after discharge: Yes VAHE Inhibitor Prescribed: No Contraindication/Reason for not providing: ckd Beta-Thee Prescribed: Carvedilol Angiotensin II Receptor Thee Prescribed: No Contraindication/Reason for not providing: ckd AnticoagulationTherapy for Atrial Fibrillation/Atrialflutter: No Contraindication/Reason for not providing: not clinically indicated Aldosterone Antagonist Prescribed: No Contraindication/Reason for not providing: not clinically indicated Hydralazine Nitrate Prescribed: No Contraindication/Reason for not providing: not clinically indicated Implantable Cardioverter Defibrillator Therapy: No Contraindication/Reason for not providing: not clinically indicated; yest; has refused lifevest in past Cardiac Resynchronization Therapy Prescribed: No Contraindication/Reason for not providing: not clinically indicated Will be discharged to: Home Follow Up Date (must be within 7 days from discharge): 06/07/18 Follow Up Time: 09:00 Attending/Attestation - Attestation I have personally seen and examined this patient.: Yes I have fully participated in the care of the patient.: Yes I have reviewed all pertinent clinical information, including history, physical exam and plan: Yes Notes (Text): Patient is medically stable for discharge. please provide patient information to the [facility] ([phone]) at [place] or the [facility] [place] at [address] [place] [address] at [phone] to follow for health care maintenance. I personally discussed with the importance of alcohol, cocaine, and smoking cessation especially in light of his heart attack. Discharge instructions discussed in detail. Discussed with cardiology, stable from standpoint for discharge. Patient recommended to f/u with nephrology to monitor renal function. Patient recommended to follow-up with Dr. Oliveira in his office in 2 weeks. Upon discharge, patient is recommended the followin) Aspirin 81mg PO daily 1 month/OTC 2) Plavix 75mg PO daily 3 month supply 3) Fluticasone/Vilanterol 1 puff inhaled RQD 1 month 4) Lasix 40mg PO BID 1 month 5) Coreg 3.125mg PO BID 1 month 6) Nicoderm patch 1 patch daily 4 7) Crestor 20mg PO qHS 1 month 8) Spiriva 18mcg inhaled daily 1 9) Albuterol HFA 1 puff inhaled Q4H prn shortness of breathe 1 10) Rampiril 2.5mg PO daily 1 medication list updated on discharge Discharge Diagnoses: 1. STEMI (Stable) Assessment/Plan * Code heart 05/27/18 * Cardiac Consult: Dr. Oliveira --> help appreciated * s/p PCI 05/27/18 [facility] for 100% occlusion of RCA; EF 10-20%; high EDP * Patient transferred out of the unit 05/29/18 * s/p PCI 05/30/18 at [place] cath for left circumflex artery * Stable for discharge 2. Severe Systolic CHF exacerbation (stable) Assessment/Plan * Chest xray (05/27/18): Moderate to severe venous congestion. Confluent consolidative changes in the right hilar region extending into the right suprahilar region. Linear atelectasis in the lateral aspect of the left midlung zone. Elevated right hemidiaphragm. Enlarged ectatic aorta. Cardiomegaly. * ProBNP 8370 * Measure daily weights; I/Os * hA1c 5.0 * Lipid Panel: Triglycerides 52; Total Cholesterol 191; LDL 71; HDL 133 * Medications: * Aspirin 325mg po daily * Lasix 40mg po bid * Metorprolol Tartrate 50mg po bid * Crestor 20mg po HS * no Vahe/arb given CKD * Echocardiogram (05/29/18): left ventricle is moderately dilated, ejection fraction: 25-30%, global hypokineses of the left ventricle. left aitral pressure is moderately elevated. mildly elevated la volume index. left atrium is severely dilated. mitral regurgitation is mild. no pericardial effusion. 3. History of HTN stable Assessment/Plan * Medication: Metorprolol Tartrate 50mg po bid 4. History of CKD, Stage 3 Assessment/Plan * Nephrology Consult: Dr. Ramos --> help appreciated * Renal US (05/28/18): Probable bilateral renal cortical increased echogenicity- can be seen with medical renal disease. Provided history is that of chronic kidney disease. No hydronephrosis. No renal mass. Left lower renal pole calcification-vascular calcification versus nonobstructing 3 mm left renal calculus. Probable hepatic steatosis. * f/u nephrology outpatient 5. History of COPD Assessment/Plan * Chest xray (05/27/18): Moderate to severe venous congestion. Confluent consolidative changes in the right hilar region extending into the right suprahilar region. Linear atelectasis in the lateral aspect of the left midlung zone. Elevated right hemidiaphragm. Enlarged ectatic aorta. Cardiomegaly. * Medications: * Duonebs q4prn * Spiriva * Breo Ellipta 6. Polysubstance Abuse Assessment/Plan * UDS: + cocaine; + Benzodiazepines * Medications * Folic Acid 1mg po daily * Ativan 1mg IV q4prn * Thiamine 100mg po daily * Nicoderm 1 patch daily (smoking history) * Smoking cessation provided * CESSATION PROVIDED 7. Prophylaxis Assessment/Plan * Heparin 5,000 units SC q8h * Protonix 40mg po daily * SCDs * Heart Healthy Diet <Lexi Boateng - Last Filed: 05/31/18 21:16> Provider - Provider Date of Admission: 05/27/18 18:52 Attending physician: Coleen Love DO Primary care physician: [facility] Consults: 05/27/18 18:55 Cardiology Consult Routine Comment: ' Consulting Provider: Uri Oliveira Consulting Physician: Uri Oliveira Reason for Consult: stemi Nephrology Consult Routine Comment: Consulting Provider: Rosy Ramos Consulting Physician: Rosy Ramos Reason for Consult: ckd Time Spent in preparation of Discharge (in minutes): 45 Hospital Course - Lab Results Lab Results: Micro Results 05/29/18 14:29 Naris MRSA Culture - Final MRSA NOT DETECTED 05/27/18 Unknown Nose MRSA Culture (Admit) - Final MRSA NOT DETECTED Most Recent Lab Values WBC 7.4 K/uL (4.8-10.8) 05/31/18 06:08 RBC 4.39 Mil/uL (4.40-5.90) L 05/31/18 06:08 Hgb 13.6 g/dL (12.0-18.0) 05/31/18 06:08 Hct 40.3 % (35.0-51.0) 05/31/18 06:08 MCV 91.8 fL (80.0-94.0) 05/31/18 06:08 MCH 31.1 pg (27.0-31.0) H 05/31/18 06:08 MCHC 33.9 g/dL (33.0-37.0) 05/31/18 06:08 RDW 13.6 % (11.5-14.5) 05/31/18 06:08 Plt Count 163 K/uL (130-400) 05/31/18 06:08 MPV 9.4 fL (7.2-11.7) 05/31/18 06:08 Neut % (Auto) 60.7 % (50.0-75.0) 05/31/18 06:08 Lymph % (Auto) 15.8 % (20.0-40.0) L 05/31/18 06:08 [place] % (Auto) 12.1 % (0.0-10.0) H 05/31/18 06:08 Eos % (Auto) 10.3 % (0.0-4.0) H 05/31/18 06:08 Baso % (Auto) 1.1 % (0.0-2.0) 05/31/18 06:08 Neut # (Auto) 4.5 K/uL (1.8-7.0) 05/31/18 06:08 Lymph # (Auto) 1.2 K/uL (1.0-4.3) 05/31/18 06:08 Daggett # (Auto) 0.9 K/uL (0.0-0.8) H 05/31/18 06:08 Eos # (Auto) 0.8 K/uL (0.0-0.7) H 05/31/18 06:08 Baso # (Auto) 0.1 K/uL (0.0-0.2) 05/31/18 06:08 Neutrophils % (Manual) 71 % (50-75) 05/28/18 04:22 Lymphocytes % (Manual) 6 % (20-40) L 05/28/18 04:22 Reactive Lymphs % 8 % (0-0) H 05/28/18 04:22 Monocytes % (Manual) 9 % (0-10) 05/28/18 04:22 Eosinophils % (Manual) 5 % (0-4) H 05/28/18 04:22 Basophils % (Manual) 1 % (0-2) 05/28/18 04:22 Platelet Estimate Normal (NORMAL) 05/28/18 04:22 RBC Morphology Normal 05/28/18 04:22 PT 11.3 SECONDS (9.7-12.2) 05/30/18 06:18 INR 1.0 05/30/18 06:18 APTT 28 SECONDS (21-34) 05/30/18 06:18 Sodium 134 mmol/L (132-148) 05/31/18 06:08 Potassium 4.1 mmol/L (3.6-5.2) 05/31/18 06:08 Chloride 97 mmol/L (98-107) L 05/31/18 06:08 Carbon Dioxide 29 mmol/L (22-30) 05/31/18 06:08 Anion Gap 11 (10-20) 05/31/18 06:08 BUN 27 mg/dL (9-20) H 05/31/18 06:08 Creatinine 2.2 mg/dL (0.8-1.5) H 05/31/18 06:08 Est GFR ( Amer) 38 05/31/18 06:08 Est GFR (Non-Af Amer) 32 05/31/18 06:08 POC Glucose (mg/dL) 104 mg/dL (65-110) 05/30/18 06:13 Random Glucose 110 mg/dL (75-110) 05/31/18 06:08 Hemoglobin A1c 5.0 % (4.2-6.5) 05/28/18 04:22 Calcium 8.9 mg/dl (8.6-10.4) 05/31/18 06:08 Phosphorus 4.0 mg/dL (2.5-4.5) 05/31/18 06:08 Magnesium 2.0 mg/dL (1.6-2.3) 05/31/18 06:08 Total Bilirubin 0.5 mg/dL (0.2-1.3) 05/31/18 06:08 AST 45 U/L (17-59) 05/31/18 06:08 ALT 31 U/L (21-72) 05/31/18 06:08 Alkaline Phosphatase 64 U/L (38-126) 05/31/18 06:08 Troponin I 34.9000 ng/mL (0.00-0.120) H* 05/28/18 04:22 NT-Pro-B Natriuret Pep 8370 pg/mL (0-900) H 05/28/18 04:22 Total Protein 6.7 g/dL (6.3-8.3) 05/31/18 06:08 Albumin 3.6 g/dL (3.5-5.0) 05/31/18 06:08 Globulin 3.1 gm/dL (2.2-3.9) 05/31/18 06:08 Albumin/Globulin Ratio 1.2 (1.0-2.1) 05/31/18 06:08 Triglycerides 52 mg/dL (0-149) 05/28/18 04:22 Cholesterol 191 mg/dL (0-199) 05/28/18 04:22 LDL Cholesterol Direct 71 mg/dL (0-129) 05/28/18 04:22 HDL Cholesterol 133 mg/dL (30-70) H 05/28/18 04:22 Free T4 0.86 ng/dL (0.78-2.19) 05/28/18 04:22 TSH 3rd Generation 1.07 mIU/L (0.46-4.68) 05/28/18 04:22 Urine Color Yellow (YELLOW) 05/28/18 23:45 Urine Clarity Clear (Clear) 05/28/18 23:45 Urine pH 5.0 (5.0-8.0) 05/28/18 23:45 Ur Specific [place] 1.013 (1.003-1.030) 05/28/18 23:45 Urine Protein 2+ mg/dL (NEGATIVE) H 05/28/18 23:45 Urine Glucose (UA) Normal mg/dL (Normal) 05/28/18 23:45 Urine Ketones Negative mg/dL (NEGATIVE) 05/28/18 23:45 Urine Blood 1+ (NEGATIVE) H 05/28/18 23:45 Urine Nitrate Negative (NEGATIVE) 05/28/18 23:45 Urine Bilirubin Negative (NEGATIVE) 05/28/18 23:45 Urine Urobilinogen Normal mg/dL (0.2-1.0) 05/28/18 23:45 Ur Leukocyte Esterase Neg Jacqueline/uL (Negative) 05/28/18 23:45 Urine WBC (Auto) < 1 /hpf (0-5) 05/28/18 23:45 Ur Squamous Epith Cells 1 /hpf (0-5) 05/28/18 23:45 Ur Random Sodium 27 mmol/L 05/28/18 23:45 Urine Opiates Screen Negative (NEGATIVE) 05/28/18 06:26 Urine Methadone Screen Negative (NEGATIVE) 05/28/18 06:26 Ur Barbiturates Screen Negative (NEGATIVE) 05/28/18 06:26 Ur Phencyclidine Scrn Negative (NEGATIVE) 05/28/18 06:26 Ur Amphetamines Screen Negative (NEGATIVE) 05/28/18 06:26 U Benzodiazepines Scrn Positive (NEGATIVE) 05/28/18 06:26 U Oth Cocaine Metabols Positive (NEGATIVE) H 05/28/18 06:26 U Cannabinoids Screen Negative (NEGATIVE) 05/28/18 06:26 - Date & Time of H&P Date of H&P: 05/27/18 Time of H&P: 18:41 Discharge Exam - Head Exam Head Exam: ATRAUMATIC, NORMAL INSPECTION - Eye Exam Eye Exam: EOMI, Normal appearance - ENT Exam ENT Exam: Mucous Membranes Moist - Respiratory Exam Respiratory Exam: Clear to PA & Lateral, NORMAL BREATHING PATTERN, UNREMARKABLE. absent: Respiratory Distress - Cardiovascular Exam Cardiovascular Exam: REGULAR RHYTHM, +S1, +S2 - GI/Abdominal Exam GI & Abdominal Exam: Normal Bowel Sounds, Unremarkable - Extremities Exam Extremities exam: normal inspection, pedal pulses present - Neurological Exam Neurological exam: Alert, Oriented x3 - Psychiatric Exam Psychiatric exam: Normal Affect, Normal Mood - Skin Skin Exam: Dry, Intact
== END 2018-05-31 16:30 | disposition home or self-care (01) | DRG 246 ==
LOC: C.CATHLAB 16:35 → C.9I 18:26 → UNDOADMIN 18:26 → C.9I 18:52 → C.6T 05-29 14:01
PROVIDERS: ADMIT Hospitalist; ATTEND Hospitalist
PROC: 4A023N7 Measurement of Cardiac Sampling and Pressure, Left Heart, Percutaneous Approach (ICD-10-PCS; principal; 2018-05-27)
PROC: 027034Z Dilation of Coronary Artery, One Artery with Drug-eluting Intraluminal Device, Percutaneous Approach (ICD-10-PCS; 2018-05-27)
PROC: B2111ZZ Fluoroscopy of Multiple Coronary Arteries using Low Osmolar Contrast (ICD-10-PCS; 2018-05-27)
PROC: B2151ZZ Fluoroscopy of Left Heart using Low Osmolar Contrast (ICD-10-PCS; 2018-05-27)
DX: I21.19 ST elevation (STEMI) myocardial infarction involving other coronary artery of inferior wall (principal); I50.23 Acute on chronic systolic (congestive) heart failure; I50.22 Chronic systolic (congestive) heart failure; I13.0 Hypertensive heart and chronic kidney disease with heart failure and stage 1 through stage 4 chronic kidney disease, or unspecified chronic kidney disease; N17.9 Acute kidney failure, unspecified; I25.10 Atherosclerotic heart disease of native coronary artery without angina pectoris; F14.10 Cocaine abuse, uncomplicated; F17.210 Nicotine dependence, cigarettes, uncomplicated; J44.9 Chronic obstructive pulmonary disease, unspecified; Z91.19 Patient's noncompliance with other medical treatment and regimen; I25.5 Ischemic cardiomyopathy; I25.82 Chronic total occlusion of coronary artery; N18.3 Chronic kidney disease, stage 3 (moderate)